=== PATIENT | male | born 1980 | race Caucasian/White ===

== ENCOUNTER → 2018-07-04 08:45 | Outpatient (RCR) | payer MEDICARE, MEDICAID, SELFPAY ==
--- NOTE | 2016-09-03 14:20 | TODAY_ITS ---
To: AVA MILTON Reason for today's visit: [facility] Plan: tommie called to check on henny's VIRGILIO as he goes to [facility]. I checked and he is active . I notified her and AVA, but will check again tomorrow Action Plan: Chronic Condition: Referred to:
--- NOTE | 2016-09-04 09:50 | TODAY_ITS ---
To: AVA MILTON Reason for today's visit: [facility] Plan: I checked portal again and henny is no longer active . he will come in Action Plan: Chronic Condition: Referred to:
--- NOTE | 2016-09-06 15:00 | TODAY_ITS ---
To: AVA MILTON Reason for today's visit: [facility] Plan: Mariana is due 09/24 and [facility] has lapsed for her, the two girls and Agustin Green. Agustin has MCR so i called [facility] and Libby worked diligently to renew Mariana and the girls fo Dr. José/dannie; they should be active in -: she also renewed Agustin but says he will have to wait for income verification. i NOTIFIED ava BY Action Plan: I will check saturday Action Plan: Chronic Condition: Referred to:
--- NOTE | 2016-09-11 10:35 | TODAY_ITS ---
To: AVA MILTON Reason for today's visit: [facility] Plan: called and john states, after checking with her safety supervisor, that Libby at [facility] was incorrect and henny will have to do a 202M. He is still part of household on the [facility] family application but not applying. The family will be listed on 202 M as not applying * I called and left [facility] with tommie to have henny call me Action Plan: Chronic Condition: Referred to:
--- NOTE | 2016-09-14 11:45 | TODAY_ITS ---
To: KARINE Reason for today's visit: [facility]/202 Plan: Agustin walked in and we completed a 202m and I faxed Action Plan: Chronic Condition: Referred to:
--- NOTE | 2016-09-20 08:50 | TODAY_ITS ---
To: KARINE Reason for today's visit: [facility] Plan: Comfort states that the faxx was recieved but not processed yet Action Plan: Chronic Condition: Referred to:
== END ==
LOC: COCO 09-03 14:20
DX: R69 Illness, unspecified (principal)

== ENCOUNTER 2018-10-26 17:58 | Emergency (ER) | payer MEDICARE, MEDICAID, SELFPAY ==
[2018-10-26 18:13] VITALS: BP 132/83; PULSE 84; RESP 16; TEMP 36.7; O2SAT 98
--- NOTE | 2018-10-26 18:22 | DI.RAD_ITS ---
SYMPTOM/DIAGNOSIS: FALL, PAIN, SWELLING LEFT ELBOW: 10/26 Three views were obtained. There is no evidence of an elbow joint effusion or hemarthrosis. No fracture seen.
--- NOTE | 2018-10-26 18:23 | W.ED.GENAD ---
Discharge Plan Disposition Patient Disposition: HOME Condition: Improving Discharge Details Chief Complaint: Orthopedic Clinical Impression: Contusion of elbow, left Primary Care Provider: Karen Mas ED Provider: Rudy Ceja Home Meds and New Rx's Prescriptions: Continued dexmethylphenidate [Focalin] 10 MG tablet 20 mg PO BID RF: 0 ibuprofen 600 MG tablet 600 mg PO QID PRN PRNQty: 30 RF: 0 Discontinued penicillin V potassium 500 MG tablet 500 mg PO TID 10 Days RF: 0 Discharge Instructions Instructions: Contusion in Adults (ED) Additional Instructions: Wear GOLD bandage as needed for comfort over 2-4 days time. Remove at night time. Continue the use of ice and may alternate with warm moist heat. Follow-up with regular doctor for recheck if not improving in 1 week's time. Medical Decision Making 38-year-old and failed and fall ice to the ground resultant left elbow pain and swelling over the course of the day today. Minimally improved with ibuprofen and ice applied at home. No other injury and denies head/neck/back/chest/abdomen pain. No numbness or tingling. Referred for x-ray to rule out underlying bony injury versus contusion. No evidence of acute fracture seen on reading by [facility]. Patient offered a sling for comfort which he declined and subsequently accepted the use of an Gold bandage. Discussed home management with him. Stable for discharge at this time. HPI General Mode of arrival: ambulatory. Date/Time Provider Initiated Documentation: 10/26/18 18:02. Limitations to Documentation: no limitations. Information obtained by: patient. History of Present Illness 38 year old M presents to the emergency department with the chief complaint of Left arm pain and swelling after fall on elbow last night, described as moderate, Quality is described as aching, and is localized to the left and upper extremity. Patient reports no radiation. Patient started experiencing this hour(s) and it has been constant. Cold therapy improves symptom(s), Movement worsens symptoms . Related Data Home Medications Medication Instructions Recorded Confirmed dexmethylphenidate [Focalin] 20 mg PO BID 05/10/16 04/07/17 ibuprofen 600 mg PO QID PRN PRN #30 tab 07/08/16 04/07/17 Previous Rx's Medication Instructions Recorded ibuprofen 600 mg PO QID PRN PRN #30 tab 07/08/16 Allergies Allergy/AdvReac Type Severity Reaction Status Date / Time venom-honey bee Allergy Anaphylaxsi Unverified 04/07/17 19:56 [bee venom (honey bee)] s codeine AdvReac Unverified 04/07/17 19:56 General Stated Complaint: Orthopedic MIRANDA: 4 Review of Systems Review of Systems 6 systems reviewed and otherwise negative [facility] Social History Smoking/Tobacco Use Status: Current every day Exam Narrative Exam Narrative: GEN: awake, alert, oriented 3. Pleasant, well groomed, interactive. HEAD: Normocephalic, atraumatic ENT: Mucous membranes moist, oropharynx unremarkable, External ear exam unremarkable EYES: PERRL, EOMI CHEST/RESP: Nontender, clear to auscultation bilateral, no wheeze/rhonchi/rales CARDIOVASCULAR: RRR, no murmur, rub laura. 2+ Rad pulse bilateral EXT: Full ROM, no edema, no rash. Tender to palpation of left elbow distally to the joint. Range of motion intact, motor 5 out of 5, no significant pain with pronation and supination Neuro: Grossly normal neurologic exam, conversant, interactive. Psych: Speech fluent, thoughts congruent, affect normal Course Vital Signs Temperature 36.7 C 10/26/18 18:13 Pulse 84 10/26/18 18:13 Respiratory Rate 16 10/26/18 18:13 Blood Pressure 132/83 10/26/18 18:13 Pulse Oximetry 98 10/26/18 18:13 Temperature 36.7 C 10/26/18 18:13 Temperature Source Temporal Artery Scan 10/26/18 18:13 Pulse 84 10/26/18 18:13 Respiratory Rate 16 10/26/18 18:13 Blood Pressure 132/83 10/26/18 18:13 Blood Pressure Position Sitting 10/26/18 18:13 Pulse Oximetry 98 10/26/18 18:13 Oxygen Delivery Method Room Air 10/26/18 18:13 Oxygen Flow Rate 0 10/26/18 18:13 Pain Level 8 10/26/18 18:13
--- NOTE | 2018-10-26 19:00 | DI.[facility]_ITS ---
EXAM: XR Left Elbow Complete, 3 or more Views EXAM DATE/TIME: 10/26/2018 6:23 PM CLINICAL HISTORY: 38 years old, male; Pain; Elbow; Left; Patient HX: Fall, pain, swelling TECHNIQUE: XR Left elbow, 3 or more views. COMPARISON: No relevant prior studies available. FINDINGS: Bones/joints: No acute fracture or subluxation. Soft tissues: Normal. IMPRESSION: No acute bony pathology. Dictated and Authenticated by: Tia Perea MD. Ordering:BALWINDER Grant MD
== END 2018-10-26 19:21 | disposition home or self-care (01) ==
PROVIDERS: Emergency Provider Emergency Medicine; PCP Nurse Practitioner Family
DX: S50.02XA Contusion of left elbow, initial encounter (principal); W00.0XXA Fall on same level due to ice and snow, initial encounter
CPT/HCPCS: 99283; 73080

== ENCOUNTER 2019-08-16 09:16 | Emergency (ER) | payer MEDICARE, MEDICAID, SELFPAY ==
[2019-08-16 09:23] VITALS: BP 91/75; PULSE 72; RESP 16; TEMP 37.1; O2SAT 96
[2019-08-16 09:31] VITALS: BP 164/58
--- NOTE | 2019-08-16 09:37 | W.ED.GENAD ---
Discharge Plan Disposition Patient Disposition: HOME Condition: Stable Discharge Details Chief Complaint: Sorethroat Clinical Impression: Acute streptococcal pharyngitis Primary Care Provider: Pasha Sweet ED Provider: Gertrudis Tuttle Home Meds and New Rx's Prescriptions: New amoxicillin 500 mg tablet 500 mg PO BID 10 Days Qty: 20 RF: 0 Continued dexmethylphenidate [Focalin] 10 MG tablet 20 mg PO BID RF: 0 ibuprofen 600 MG tablet 600 mg PO QID PRN PRNQty: 30 RF: 0 Discharge Instructions Instructions: Pharyngitis (ED) Additional Instructions: Alternate tylenol and motrin as needed and directed for pain. Take the antibiotics until finished. Drink plenty of fluids and get plenty of rest. Call your primary care doctor's office to schedule a follow-up appointment for reevaluation within the next week. Return immediately to the emergency department if you develop any worsening or new concerning symptoms. Discharge Data Discharge Date/Time-TO BE ENTERED AT DEPARTURE: 08/16/19 09:48 Discharge Physician: Gertrudis Tuttle Medical Decision Making 39-year-old male presents with sore throat for the past 2 days. Recent contact with strep. He appears nontoxic. Posterior pharyngeal erythema. No exudates, peritonsillar abscess, submandibular swelling, drooling or trismus. Lungs clear. No meningeal signs. Rapid strep positive. Patient offered Bicillin injection or oral antibiotics and he would rather p.o. meds. We will send with a prescription for amoxicillin. He is advised to follow-up with his primary care doctor for evaluation and to return here if worse. HPI General Mode of arrival: ambulatory. Date/Time Provider Initiated Documentation: 08/16/19 09:17. Limitations to Documentation: no limitations. Information obtained by: patient. HPI Narrative: Pt is a 39yo M who presents to the ED w/ a c/o sore throat and headache x 2 days. He states his daughter was recently diagnosed with strep throat. He denies fever, ear pain, cough, neck pain. Related Data Home Medications Medication Instructions Recorded Confirmed dexmethylphenidate [Focalin] 20 mg PO BID 05/10/16 08/16/19 ibuprofen 600 mg PO QID PRN PRN #30 tab 07/08/16 08/16/19 amoxicillin 500 mg PO BID 10 Days #20 tab 08/16/19 Previous Rx's Medication Instructions Recorded ibuprofen 600 mg PO QID PRN PRN #30 tab 07/08/16 amoxicillin 500 mg PO BID 10 Days #20 tab 08/16/19 Allergies Allergy/AdvReac Type Severity Reaction Status Date / Time venom-honey bee Allergy Anaphylaxsi Unverified 08/16/19 09:25 [bee venom (honey bee)] s codeine AdvReac Unverified 08/16/19 09:25 General Stated Complaint: Sorethroat MIRANDA: 4 Review of Systems Review of Systems ROS Unobtainable: All systems reviewed & are unremarkable except as noted in HPI and below Constitutional Constitutional: Reports as per HPI, Denies chills and Denies fever(s) Eyes Eyes: Denies blurry vision ENT Ears, Nose, Mouth, and Throat: Denies dizziness, Reports sore throat and Denies throat swelling Cardiovascular Cardiovascular: Denies chest pain and Denies dyspnea Respiratory Respiratory: Denies cough and Denies dyspnea Gastrointestinal Gastrointestinal: Denies abdominal pain, Denies diarrhea and Denies vomiting Genitourinary Genitourinary: Denies hematuria and Denies dysuria Musculoskeletal Musculoskeletal: Denies back pain and Denies numbness Integumentary/Breasts Skin/Breast: Denies lesions and Denies rash Neurologic Neurologic: Denies dizziness, Denies focal weakness and Denies numbness Allergic/Immunologic Allergic/Immunologic: Denies throat swelling [facility] Medical History ADD (attention deficit disorder) (Acute) Opiate addiction (Acute) Surgical History No significant past surgical history (Acute) Social History Smoking/Tobacco Use Status: Current every day Tobacco Type: cigarettes Alcohol Intake: never Substance use type: does not use Do you feel safe at home: Yes Do you feel safe in your relationship?: Yes Exam Const General: cooperative, healthy appearing and no acute distress HENMT Head: normal to inspection Ears: hearing grossly normal bilaterally and TM's normal bilaterally Mouth: oral mucosae normal Throat: uvula midline, no peritonsillar masses and posterior oropharynx abnormal erythema; no edema and no exudates Eyes General: appearance normal, both eyes and all related structures Neck Neck: normal visual inspection, no lymphadenopathy, no meningeal signs, trachea midline and supple Resp Effort & Inspection: normal respiratory effort and able to speak in complete sentences Auscultation: clear to auscultation bilaterally Cardio Rate: regular rate Rhythm: regular rhythm Skin General skin exam: no rashes or lesions noted Neuro General: alert, awake, oriented x3, moves all extremities and no meningeal signs Motor: muscle tone normal throughout Extrem General: normal to inspection and full ROM Psych Appearance: grossly normal Affect: normal affect Course Vital Signs Vital signs: Vital Signs Temperature 98.8 F 08/16/19 09:23 Pulse 72 08/16/19 09:23 Respiratory Rate 16 08/16/19 09:23 Blood Pressure 91/75 L 08/16/19 09:23 Pulse Oximetry 96 08/16/19 09:23 Temperature 98.8 F 08/16/19 09:23 Temperature Source Temporal Artery Scan 08/16/19 09:23 Pulse 72 08/16/19 09:23 Respiratory Rate 16 08/16/19 09:23 Respiratory Effort Non-Labored 08/16/19 09:23 Blood Pressure 164/58 H 08/16/19 09:31 Blood Pressure Position Supine 08/16/19 09:23 Pulse Oximetry 96 08/16/19 09:23 Oxygen Delivery Method Room Air 08/16/19 09:23 Oxygen Flow Rate 0 08/16/19 09:23 Pain Level 8 08/16/19 09:23 Lab/Test Results Lab/Test Results: POC Strep Test-[facility](Rapid) Start: 08/16/19 09:24 Freq: Status: Complete Protocol: Document 08/16/19 09:26 TB (Rec: 08/16/19 09:26 TB [id number]) Strep test-[facility](Rapid)-POC POC-Strep test-[facility] (Rapid) Positive POC Strep Test-[facility](Rapid) Start: 08/16/19 09:27 Freq: .Rapid Strep Test Status: Active Protocol: Document 08/16/19 09:27 AM (Rec: 08/16/19 09:27 AM [id number]) Strep test-[facility](Rapid)-POC POC-Strep test-[facility] (Rapid) Positive POC-Strep test-[facility] (Rapid) Positive
== END 2019-08-16 09:48 | disposition home or self-care (01) ==
PROVIDERS: Emergency Provider Physician Assistant; PCP Nurse Practitioner Family
DX: J02.0 Streptococcal pharyngitis (principal)
CPT/HCPCS: 87880; 99283

== ENCOUNTER 2019-12-19 09:39 | Emergency (ER) | payer MEDICARE, MEDICAID, SELFPAY ==
[2019-12-19 09:45] VITALS: BP 144/69; PULSE 80; TEMP 36.7; O2SAT 98
--- NOTE | 2019-12-19 09:59 | W.ED.GENAD ---
Discharge Plan Disposition Patient Disposition: HOME Condition: Good Discharge Details Chief Complaint: DentalOral Clinical Impression: Dental infection Primary Care Provider: Pasha Sweet ED Provider: Deanna Alfaro Home Meds and New Rx's Prescriptions: New penicillin V potassium 500 mg tablet 500 mg PO QID Qty: 28 RF: 0 Continued dexmethylphenidate [Focalin] 10 MG tablet 30 mg PO DAILY RF: 0 ibuprofen 600 MG tablet 600 mg PO QID PRN PRNQty: 30 RF: 0 acetaminophen [Tylenol Extra Strength] 500 mg Tablet 1,000 mg PO QID PRNRF: 0 Discharge Instructions Instructions: Dental Abscess (ED) Additional Instructions: Encourage water intake. Tylenol and/or ibuprofen as needed for discomfort. Please take the penicillin as prescribed, even if symptoms improve please take the entire course. If you develop fever/chills, increased pain, tenderness breathing, inability stay hydrated or other new/worsening symptoms please seek care urgently once again. You need definitive care with a dentist, attached is a list of local dentist for you to call. Referrals: Pasha Sweet, [employer] [Primary Care Provider] - Medical Decision Making Patient is a 39-year-old male presenting today with chief complaint of left lower dental pain. He reports the pain was initially intermittent but has been fairly consistent for the past 2 weeks progressively increasing. Patient does not have a dentist. He has had dental infections historically. He denies any fevers or chills. Has been using Orajel to help with his discomfort. No difficulty swallowing, has been hydrating well. No difficulty opening his mouth. On exam, patient appears nontoxic. He has poor dentition, tender over the buccal side of the 18 tooth. No trismus, focal area of swelling, no fluctuance. No evidence of liquids angina, epiglottitis, retropharyngeal abscess. Normal exam of the left ear. We will begin the patient on penicillin. He is given return precautions. Advised follow-up with dentist, list of local dentist was given. All questions concerns were addressed and he is in agreement this plan. HPI General Mode of arrival: ambulatory. Date/Time Provider Initiated Documentation: 12/19/19 09:59. Limitations to Documentation: no limitations. Information obtained by: patient and RN notes reviewed. History of Present Illness 39 year old M presents to the emergency department with the chief complaint of left lower dental pain, described as moderate, with intensity rated at 5. Quality is described as stabbing, and is localized to the mouth. Patient reports no radiation. Patient started experiencing this week(s) (initially intermittent, now constant x 2 weeks) and it has been constant. Medication improves symptom(s), (orajel) No exacerbating factors reported . Patient notes no other symptoms.. Patient did receive the following treatments prior to arrival, other Related Data Home Medications Medication Instructions Recorded Confirmed dexmethylphenidate [Focalin] 30 mg PO DAILY 05/10/16 12/19/19 ibuprofen 600 mg PO QID PRN PRN #30 tab 07/08/16 12/19/19 acetaminophen [Tylenol Extra 1,000 mg PO QID PRN 12/19/19 12/19/19 Strength] penicillin V potassium 500 mg PO QID #28 tab 12/19/19 Previous Rx's Medication Instructions Recorded ibuprofen 600 mg PO QID PRN PRN #30 tab 07/08/16 penicillin V potassium 500 mg PO QID #28 tab 12/19/19 Allergies Allergy/AdvReac Type Severity Reaction Status Date / Time venom-honey bee Allergy Anaphylaxsi Unverified 12/19/19 09:48 [bee venom (honey bee)] s codeine AdvReac Unverified 12/19/19 09:48 General Stated Complaint: DentalOral MIRANDA: 4 Review of Systems Constitutional Constitutional: Reports as per HPI, Denies chills, Denies fatigue, Denies fever(s), Denies headache(s) and Denies poor appetite Eyes Eyes: Denies change in vision and Denies irritation ENT Ears, Nose, Mouth, and Throat: Reports as per HPI, Reports dental pain, Denies dysphagia, Denies dizziness, Denies dry mouth, Denies ear discharge, Denies otalgia, Reports facial pain, Denies headache(s), Denies hoarseness, Denies lip swelling, Denies nasal congestion, Denies odynophagia and Denies sore throat Cardiovascular Cardiovascular: Reports as per HPI and Denies chest pain Respiratory Respiratory: Reports as per HPI and Denies cough Gastrointestinal Gastrointestinal: Reports as per HPI, Denies dysphagia, Denies nausea, Denies odynophagia and Denies vomiting Integumentary/Breasts Skin/Breast: Reports as per HPI, Denies erythema, Denies rash and Denies skin pain Neurologic Neurologic: Reports as per HPI, Denies dizziness and Denies headache(s) Endocrine Endocrine: Denies fatigue Allergic/Immunologic Allergic/Immunologic: Denies lip swelling [facility] Medical History ADD (attention deficit disorder) (Acute) Opiate addiction (Acute) Surgical History No significant past surgical history (Acute) Social History Smoking/Tobacco Use Status: Current every day Tobacco Type: cigarettes Alcohol Intake: never Drug use: Never Substance use type: does not use Do you feel safe at home: Yes Do you feel safe in your relationship?: Yes Exam Const General: cooperative, healthy appearing, comfortable, no acute distress, well developed and well groomed Nutritional Appearance: average body habitus and well nourished Orientation: alert and awake HENMT Head: normal to inspection, normocephalic and atraumatic Ears: hearing grossly normal bilaterally, external ears normal and TM's normal bilaterally General nose exam: external nose normal and nares normal Face and sinus: normal facial exam, sinuses nontender and face symmetric Mouth: lip normal, tongue normal, no drooling, normal lip, no muffled voice, no trismus and No restricted motion Teeth and gingiva: caries and poor dentition (pain along buccal side of #19 tooth, no area of fluctuance) Throat: posterior oropharynx normal, tonsils normal and uvula midline Eyes General: appearance normal, both eyes and all related structures Neck Neck: normal visual inspection, full ROM, no lymphadenopathy, supple and no anterior neck swelling Resp Effort & Inspection: normal respiratory effort, able to speak in complete sentences and no respiratory distress Auscultation: clear to auscultation bilaterally, no rales, no rhonchi and no wheezes Cardio Rate: regular rate Rhythm: regular rhythm Heart Sounds: S1 normal and S2 normal Skin General skin exam: no rashes or lesions noted Trauma: no lacerations or abrasions Neuro General: alert and awake Cognition: normal cognition Speech: speech normal Gait: normal gait Psych Appearance: grossly normal and well kempt Mental Status: mental status grossly normal Speech and Movement: speech and movement normal Course Vital Signs Vital signs: Vital Signs Temperature 36.7 C 12/19/19 09:45 Pulse 80 12/19/19 09:45 Blood Pressure 144/69 H 12/19/19 09:45 Pulse Oximetry 98 12/19/19 09:45 Temperature 36.7 C 12/19/19 09:45 Temperature Source Temporal Artery Scan 12/19/19 09:45 Pulse 80 12/19/19 09:45 Respiratory Effort Non-Labored 12/19/19 09:47 Blood Pressure 144/69 H 12/19/19 09:45 Blood Pressure Position Sitting 12/19/19 09:45 Pulse Oximetry 98 12/19/19 09:45 Oxygen Delivery Method Room Air 12/19/19 09:45 Oxygen Flow Rate 0 12/19/19 09:45 Pain Level 5 12/19/19 09:50
== END 2019-12-19 10:25 | disposition home or self-care (01) ==
PROVIDERS: Emergency Provider Physician Assistant; PCP Nurse Practitioner Family
DX: K04.7 Periapical abscess without sinus (principal)
CPT/HCPCS: 99283

== ENCOUNTER 2020-02-21 21:50 | Emergency (ER) | payer MEDICARE, MEDICAID, SELFPAY ==
[2020-02-21 21:56] VITALS: BP 146/90; PULSE 82; RESP 16; TEMP 36.8; O2SAT 97
--- NOTE | 2020-02-21 21:58 | ED.GENADUL_ITS ---
Discharge Plan Disposition Patient Disposition: HOME Condition: Stable Discharge Details Chief Complaint: DentalOral Clinical Impression: Dental infection Primary Care Provider: Pasha Sweet ED Provider: Driss Evans Home Meds and New Rx's Prescriptions: New clindamycin HCl 300 mg capsule 300 mg PO Q8H Qty: 30 RF: 0 No Action ibuprofen 600 MG tablet 1,600 mg PO QID PRN PRNRF: 0 acetaminophen [Tylenol Extra Strength] 500 mg Tablet 1,500 mg PO QID PRNRF: 0 Discharge Instructions Instructions: Dental Abscess (ED) Additional Instructions: Clindamycin as directed. Cool and/or warm compresses every 2 hours for 20 days. Qtgu-wvg-[id number] medications as directed for symptomatic control, do not take more than directed using the dental list provided, I recommend contacting dentist tomorrow to establish a dentist as soon as possible, I do not want to wait a full month as already scheduled. Please watch for new or worsening symptoms and return to the ER for any concerns Medical Decision Making 39-year-old gentleman presents for ongoing dental pain. Has been on both penicillin and amoxicillin. At this time no clear signs of abscess. Will broaden his antibiotic coverage with clindamycin, first dose to be given here. Dental block was offered here in the ER but he declines. He was educated on the proper dose of Tylenol and or Motrin to take. Will provide a dental list for the patient so he may contact them tomorrow to help expedite his outpatient care. Patient has no additional questions or concerns and is comfortable discharge. Patient appears well, nontoxic. No acute distress. Medical Records Medical records reviewed: Yes I reviewed the patient's medical records. HPI General Mode of arrival: ambulatory . Date/Time Provider Initiated Documentation: 02/21/20 21:51 . Limitations to Documentation: no limitations . Information obtained by: patient . HPI Narrative: 39-year-old gentleman who reports roughly 2-month history of dental pain, seen at our hospital placed on penicillin, reports on his last day of amoxicillin from another ER, symptoms are not improving. He is not scheduled to see a dentist for another month. He reports that he smokes cigarettes daily. He denies any fever, difficulty swallowing, facial swelling. Reports taking [id number] Tylenol and Motrin [id number]. The last dose he took was 1600 mg of ibuprofen and 1500 mg of Tylenol however he does not typically take that high of a dose. He has no additional concerns or complaints at this time. Related Data Home Medications Medication Instructions Recorded Confirmed acetaminophen [Tylenol Extra 1,500 mg PO QID PRN 12/19/19 02/21/20 Strength] clindamycin HCl 300 mg PO Q8H #30 cap 02/21/20 ibuprofen 1,600 mg PO QID PRN PRN 02/21/20 02/21/20 Previous Rx's Medication Instructions Recorded clindamycin HCl 300 mg PO Q8H #30 cap 02/21/20 Allergies Allergy/AdvReac Type Severity Reaction Status Date / Time venom-honey bee Allergy Anaphylaxsi Unverified 02/21/20 22:02 [bee venom (honey bee)] s codeine AdvReac Unverified 02/21/20 22:02 General MIRANDA: 4 Review of Systems Constitutional Constitutional: Denies fever(s) Eyes Eyes: Denies eye discharge ENT Ears, Nose, Mouth, and Throat: Denies sore throat Cardiovascular Cardiovascular: Denies chest pain and Denies dyspnea Respiratory Respiratory: Denies cough and Denies dyspnea Integumentary/Breasts Skin/Breast: Denies rash [facility] Medical History ADD (attention deficit disorder) (Acute) Opiate addiction (Acute) Surgical History No significant past surgical history (Acute) Social History Smoking/Tobacco Use Status: Current every day Tobacco Type: cigarettes Alcohol Intake: never Drug use: Never Substance use type: does not use Do you feel safe at home: Yes Do you feel safe in your relationship?: Yes Exam Const General: cooperative, healthy appearing, comfortable and no acute distress Orientation: alert, awake and oriented x3 HENMT Head: normal to inspection, normocephalic and atraumatic Ears: external ears normal, TM's normal bilaterally and EAC's normal General nose exam: external nose normal Face and sinus: normal facial exam Mouth: moist mucous membranes Teeth and gingiva: poor dentition (The patient has no superior teeth. Tooth #19 cracked, tender. ) and other (No pointing abscess or facial swelling) Throat: posterior oropharynx normal Eyes Conjunctivae: conjunctivae normal Neck Neck: normal visual inspection, full ROM, no lymphadenopathy, no meningeal signs, trachea midline and supple Resp Effort & Inspection: normal respiratory effort and able to speak in complete sentences Auscultation: clear to auscultation bilaterally Cardio Rate: regular rate Rhythm: regular rhythm Skin General skin exam: no rashes or lesions noted Neuro General: patient alert, patient awake, moves all extremities and no focal motor deficits Sensory Exam: no sensory deficits noted Psych Appearance: grossly normal Mental Status: mental status grossly normal
[2020-02-21 22:15] VITALS: BP 146/90; PULSE 82; RESP 16; O2SAT 97
[2020-02-21] MEDS: Clindamycin 300 MG CAP PO (22:18)
== END 2020-02-21 22:20 | disposition home or self-care (01) ==
PROVIDERS: Emergency Provider Physician Assistant; PCP Nurse Practitioner Family
DX: R68.84 Jaw pain (principal); K04.7 Periapical abscess without sinus
CPT/HCPCS: 99283

== ENCOUNTER 2020-02-23 00:35 | Emergency (ER) | payer MEDICARE, MEDICAID, SELFPAY ==
[2020-02-23 00:38] VITALS: BP 162/90; PULSE 80; RESP 18; TEMP 37; O2SAT 94
--- NOTE | 2020-02-23 00:48 | ED.GENADUL_ITS ---
Discharge Plan Disposition Patient Disposition: HOME Condition: Stable Discharge Details Chief Complaint: Allergic Clinical Impression: Odontalgia, Allergic drug reaction Primary Care Provider: Pasha Sweet ED Provider: Rudy Ceja Home Meds and New Rx's Prescriptions: New penicillin V potassium 500 mg tablet 500 mg PO QID 10 Days Qty: 40 RF: 0 prednisone 20 mg tablet 40 mg PO DAILY 5 Days Qty: 10 RF: 0 Continued ibuprofen 600 MG tablet 1,600 mg PO QID PRN PRNRF: 0 acetaminophen [Tylenol Extra Strength] 500 mg Tablet 1,500 mg PO QID PRNRF: 0 Discontinued clindamycin HCl 300 mg capsule 300 mg PO Q8H Qty: 30 RF: 0 Discharge Instructions Instructions: Toothache (ED) Additional Instructions: Follow-up with dentistry as you have planned. Call in the morning for an appoi ntment time. May continue Tylenol and/or ibuprofen as needed for pain. May use the provided tramadol as needed for breakthrough pain. I would consider that she have mild allergy to clindamycin and should no longer take it. Please begin penicillin as prescribed. Return to the emergency department for any acute concerns. Discharge Data Discharge Date/Time-TO BE ENTERED AT DEPARTURE: 02/23/20 01:09 Medical Decision Making 39-year-old male presents from home. He has had ongoing difficulty with dental caries and dental infections. He was seen in the emergency department started on clindamycin yesterday. Is now developed a rash. No difficulty with swallowing or drooling. He has plans for outpatient follow. He had taken Benadryl at home. Will add a brief burst of prednisone. He will continue antihistamines and follow-up with dentistry as planned. We will switch him from clindamycin to penicillin. HPI General Mode of arrival: ambulatory . Date/Time Provider Initiated Documentation: 02/23/20 00:39 . Limitations to Documentation: no limitations . Information obtained by: patient . History of Present Illness 39 year old M presents to the emergency department with the chief complaint of Rash after taking clindamycin, described as mild, Quality is described as constant, and is localized to the chest and back. Patient reports no radiation. Patient started experiencing this hour(s) and it has been constant. No relieving factors improve symptom(s), No exacerbating factors reported . Patient notes denies chest pain, fever/chills and shortness of breath. Patient did receive the following treatments prior to arrival, NSAID Related Data Home Medications Medication Instructions Recorded Confirmed acetaminophen [Tylenol Extra 1,500 mg PO QID PRN 12/19/19 02/23/20 Strength] ibuprofen 1,600 mg PO QID PRN PRN 02/21/20 02/23/20 penicillin V potassium 500 mg PO QID 10 Days #40 tab 02/23/20 prednisone 40 mg PO DAILY 5 Days #10 tab 02/23/20 Previous Rx's Medication Instructions Recorded penicillin V potassium 500 mg PO QID 10 Days #40 tab 02/23/20 prednisone 40 mg PO DAILY 5 Days #10 tab 02/23/20 Allergies Allergy/AdvReac Type Severity Reaction Status Date / Time venom-honey bee Allergy Anaphylaxsi Unverified 02/23/20 00:39 [bee venom (honey bee)] s codeine AdvReac Unverified 02/23/20 00:39 General Stated Complaint: Allergic MIRANDA: 3 Review of Systems Narrative: No change to voice or swallowing, no shortness of breath, no drooling. 4 systems reviewed and otherwise negative [facility] Medical History ADD (attention deficit disorder) (Acute) Opiate addiction (Acute) Social History Smoking/Tobacco Use Status: Current every day Tobacco Type: cigarettes Alcohol Intake: never Drug use: Never Substance use type: does not use Do you feel safe at home: Yes Do you feel safe in your relationship?: Yes Exam Narrative Exam Narrative: GEN: awake, alert, oriented 3. Pleasant, well groomed, interactive. HEAD: Normocephalic, atraumatic ENT: Mucous membranes moist, oropharynx with upper plate that is edentulous, numerous dental caries and partial teeth present lower, no fluctuance orasymmetry present, External ear exam unremarkable EYES: PERRL, EOMI NECK: Full ROM, no BURAK, no menigismus CHEST/RESP: Nontender, clear to auscultation bilateral, no wheeze/rhonchi/rales. Rash on upper back and chest that is erythematous, raised, blanches to touch. CARDIOVASCULAR: RRR, no murmur, rub laura. 2+ Rad pulse bilateral EXT: Full ROM, no edema, no rash Neuro: Grossly normal neurologic exam, conversant, interactive. Psych: Speech fluent, thoughts congruent, affect normal Course Vital Signs Vital signs: Vital Signs Temperature 37 C 02/23/20 00:38 Pulse 80 02/23/20 00:38 Respiratory Rate 18 02/23/20 00:38 Blood Pressure 162/90 H 02/23/20 00:38 Pulse Oximetry 94 L 02/23/20 00:38 Temperature 37 C 02/23/20 00:38 Pulse 80 02/23/20 00:38 Respiratory Rate 18 02/23/20 00:38 Respiratory Effort Non-Labored 02/23/20 00:39 Respiratory Pattern Normal 02/23/20 00:39 Blood Pressure 162/90 H 02/23/20 00:38 Blood Pressure Position Sitting 02/23/20 00:38 Pulse Oximetry 94 L 02/23/20 00:38 Oxygen Delivery Method Room Air 02/23/20 00:38 Oxygen Flow Rate 0 02/23/20 00:38 Pain Level 8 02/23/20 00:38
[2020-02-23] MEDS: Loratidine 10 MG TAB PO (01:03)
[2020-02-23] MEDS: predniSONE 40 MG, predniSONE 10 MG 50 MG PO (01:03)
[2020-02-23] MEDS: Penicillin V POTASSIUM 500 MG TAB, 4 TABS/BTL PO (01:03)
[2020-02-23 06:40] VITALS: BP 162/90; PULSE 80; RESP 18; TEMP 37; O2SAT 94
== END 2020-02-23 01:09 | disposition home or self-care (01) ==
PROVIDERS: Emergency Provider Emergency Medicine; PCP Nurse Practitioner Family
DX: L27.0 Generalized skin eruption due to drugs and medicaments taken internally (principal); T36.8X5A Adverse effect of other systemic antibiotics, initial encounter
CPT/HCPCS: 99283; J7512

== ENCOUNTER 2020-03-20 18:17 | Emergency (ER) | payer MEDICARE, MEDICAID, SELFPAY ==
[2020-03-20 18:21] VITALS: BP 156/85; PULSE 86; RESP 16; TEMP 36.6; O2SAT 98
--- NOTE | 2020-03-20 19:14 | W.ED.GENAD ---
Discharge Plan Disposition Patient Disposition: HOME Condition: Stable Discharge Details Chief Complaint: DentalOral Clinical Impression: Pain, dental Primary Care Provider: Pasha Sweet ED Provider: Renu Salvador Home Meds and New Rx's Prescriptions: New penicillin V potassium 500 mg tablet 500 mg PO QID Qty: 28 RF: 0 Continued ibuprofen 600 MG tablet 1,600 mg PO QID PRN PRNRF: 0 acetaminophen [Tylenol Extra Strength] 500 mg Tablet 1,500 mg PO QID PRNRF: 0 penicillin V potassium 500 mg Tablet 500 mg PO RF: 0 Discharge Instructions Instructions: Toothache (ED) Additional Instructions: Ice to the cheek. Warm salt water rinses after eating or drinking. Keep the head of your bed elevated at night when trying to sleep this will help decrease throbbing pain. You received oxycodone 5 mg in the emergency room. You may re-dose oxycodone in 4 to 6 hours for pain if needed. Consider splitting your methadone dose into quarters and take every 6 hours over the course of the day for better pain relief. Called [facility] clinic regarding a recommendation to split your methadone dose. You decline CT scan today. You are placed on the critical care educator list for follow-up with dentist, they can help assist with more prompt follow-up. Return if you are not having any worsening pain, fevers, chills, difficulty opening or closing your jaw or for worsening symptoms as discussed sooner if needed. Medical Decision Making 39-year-old patient presents for 1 month of dental pain has been seen in the emergency room multiple times this is his third visit. Patient previously treated with clindamycin, had allergic reaction. Changed to penicillin, has been compliant has 4 tablets left. Patient returns to the emergency room today due to persistence of pain. Patient denies associated fevers or chills. Is nonseptic appearing. Vital signs reviewed and are stable. Mild hypertension noted. Afebrile. On exam patient does have receded gums as well as widespread lower dental caries without obvious fluctuance or abscess present at this time. Patient has no focal facial swelling or cellulitis. Patient has no trismus. Speaking in full sentences, able to manage secretions. Patient denies any systemic infectious symptoms. Patient does report taste a foul odor persistently in his mouth. I did recommend CT scan to rule out myelitis as source of possible infection despite patient's lack of systemic symptoms however patient has completed multiple courses of antibiotics without relief of his pain. Patient declined CT. He would rather follow-up with dentist. Patient is unable to get into his dentist. Will place patient on critical care educator list to try to expedite follow-up. Patient has had made several phone calls as well as his mother has made several phone calls on his behalf. Patient offered a local block, patient declines. Patient reports he is quite fearful of needles. Patient will consent to oral medications for pain. Will give patient a single dose of oxycodone at this time and additional tablet of oxycodone for overnight pain at his request. Patient is currently taking methadone. Patient is on methadone for chronic pain due to cervical fractures. We did discuss splitting his methadone dose for better overall pain relief as Motrin and Tylenol have been ineffective. Patient reports his understanding and will follow-up with methadone clinic and plan a split dose for better relief of pain. We will continue patient's antibiotic. Conservative treatments discussed. I see no active sign of abscess however given persistence of pain will prolong his penicillin course. Signs and symptoms of infection discussed for which patient should have immediate return. Patient reports his understanding. Patient feels comfortable plan of care and discharge home at this time. The patient was stable and requested discharge. Prior to discharge, my usual and customary return precautions were reviewed with the patient - this included follow-up instructions and reasons to return to the Emergency Department if conditions worsens, does not improve as expected, or other new concerns arise. HPI General Date/Time Provider Initiated Documentation: 03/20/20 18:19. HPI Narrative: This is a 39-year-old patient presenting to the emergency room complaints of dental pain. Patient reports 1 month of dental pain. He does report he took a course of clindamycin had an allergic reaction, medication was discontinued. Then he took a course of penicillin. Patient reports taste of foul odor in his mouth intermittently. Patient reports along the gumline noted areas of swelling which he ruptures, purulence is drained and facial swelling improves. Patient reports multiple episodes of this over the last month. Patient reports left lower jaw pain. Difficulty sleeping at night. Patient denies any fevers or chills. Patient denies any difficulty opening or closing jaw. Patient reports taking Motrin and Tylenol [id number] without relief. Patient currently is taking methadone. Patient denies headache or dizziness. Denies any sweats. No other concerns or complaints at this time. Patient is still currently on penicillin has 4 tablets left. Has been trying to get into a dentist but has been unsuccessful due to Covid. Concerned regarding persistence of pain. Denies headache, dizziness, nausea, vomiting. Denies abdominal pain, bowel changes. Denies any ear pain. Denies voice change or trismus. No swallowing difficulty. Related Data Home Medications Medication Instructions Recorded Confirmed acetaminophen [Tylenol Extra 1,500 mg PO QID PRN 12/19/19 03/20/20 Strength] ibuprofen 1,600 mg PO QID PRN PRN 02/21/20 03/20/20 penicillin V potassium 500 mg PO 03/20/20 penicillin V potassium 500 mg PO QID #28 tab 03/20/20 Previous Rx's Medication Instructions Recorded penicillin V potassium 500 mg PO QID #28 tab 03/20/20 Allergies Allergy/AdvReac Type Severity Reaction Status Date / Time clindamycin Allergy Unverified 03/20/20 18:24 venom-honey bee Allergy Anaphylaxsi Unverified 03/20/20 18:24 [bee venom (honey bee)] s codeine AdvReac Unverified 03/20/20 18:24 General Stated Complaint: DentalOral MIRANDA: 4 Review of Systems All systems reviewed & are unremarkable except as noted in HPI and below PFSH Medical History ADD (attention deficit disorder) (Acute) Opiate addiction (Acute) Social History Smoking/Tobacco Use Status: Current every day Tobacco Type: cigarettes Alcohol Intake: never Drug use: Never Substance use type: does not use Do you feel safe at home: Yes Do you feel safe in your relationship?: Yes Exam Narrative Exam Narrative: CONST: Healthy appearing patient, in no acute distress. Well hydrated. Alert and oriented. HENMT: Head nomocephalic, normal to inspection. Atraumatic. Hearing grossly normal. TMs appear normal bilaterally. No pharyngeal erythema. Moist mucous membranes. Patient has no upper teeth present. Patient has widespread dental caries noted of the lower teeth. Significantly reseeded gums on the left side. No obvious dental abscess at this time. No focal gum swelling present. No obvious facial swelling present at this time. Mild left jaw pain with palpation. Scattered cervical lymphadenopathy present. No facial cellulitis. EYES: General normal appearance. Alignment normal. Eyelids normal. Conjunctiva normal. NECK: Normal visual inspection. FROM. Trachea midline. No Midline tenderness. CHEST: Normal insepection of the chest. RESP: Normal respiratory effort. Speaking full sentences. No cough. No audible wheezing. No retractions. CARDIO: No JVD. MUSCULOSKELETAL: Normal Gait. FROM of all extremities. SKIN: Normal. Dry. No rashes. NEURO: Alert and awake. Speech clear. PSYCH: Normal affect. Cooperative. Course Vital Signs Vital signs: Vital Signs Temperature 36.6 C 03/20/20 18:21 Pulse 86 03/20/20 18:21 Respiratory Rate 16 03/20/20 18:21 Blood Pressure 156/85 H 03/20/20 18:21 Pulse Oximetry 98 03/20/20 18:21 Temperature 36.6 C 03/20/20 18:21 Temperature Source Tympanic 03/20/20 18:21 Pulse 86 03/20/20 18:21 Respiratory Rate 16 03/20/20 18:21 Respiratory Effort Non-Labored 03/20/20 18:23 Blood Pressure 156/85 H 03/20/20 18:21 Blood Pressure Position Sitting 03/20/20 18:21 Pulse Oximetry 98 03/20/20 18:21 Oxygen Delivery Method Room Air 03/20/20 18:21 Oxygen Flow Rate 0 03/20/20 18:21 Pain Level 10 03/20/20 18:24
[2020-03-20] MEDS: oxyCODONE 5 MG TAB PO (19:29)
[2020-03-20] MEDS: oxyCODONE 10 MG TAB 5 MG PO (19:29)
== END 2020-03-20 19:30 | disposition home or self-care (01) ==
PROVIDERS: Emergency Provider Physician Assistant; PCP Nurse Practitioner Family
DX: R68.84 Jaw pain (principal); K08.89 Other specified disorders of teeth and supporting structures; F11.21 Opioid dependence, in remission
CPT/HCPCS: 99283

== ENCOUNTER 2020-09-23 09:20 | Emergency (ER) | payer MEDICARE, MEDICAID, SELFPAY ==
[2020-09-23 09:26] VITALS: BP 163/78; PULSE 74; RESP 18; TEMP 36.2; O2SAT 100
--- NOTE | 2020-09-23 09:42 | ED.GENADUL_ITS ---
Discharge Plan Disposition Patient Disposition: HOME Condition: Improving Discharge Details Clinical Impression: Abdominal pain Primary Care Provider: Pasha Sweet ED Provider: Rudy Ceja Home Meds and New Rx's Prescriptions: Continued ibuprofen 600 MG tablet 1,600 mg PO QID PRN PRNRF: 0 methadone 10 mg/5 mL Solution 85 mg PO DAILY RF: 0 acetaminophen [Tylenol Extra Strength] 500 mg Tablet 1,500 mg PO QID PRNRF: 0 Discharge Instructions Instructions: Abdominal Pain (ED) Additional Instructions: As we discussed, please return if you develop a fever, abdominal bloating, recurrent abdominal pain or vomiting, or any other acute concerns. Resume normal routine and activities. As we discussed, you may benefit from a trial of avoiding milk products. Return for any acute concerns. Routine care with your regular doctor. Medical Decision Making 40-year-old male presents from home complaining of onset this morning of crampy left lower quadrant abdominal pain. Addition to radiate to his back at times. He had 3 episodes of loose stools and a normal urination. He states the pain then dissipated and he now feels normal. No bloating, no vomiting, no fever. No recent travel or known sick contacts. Discussed with him that my differential diagnosis would include renal colic, gaseous distention of colon, developing diverticulitis. He declined any further intervention or evaluation. We discussed returning for persistent or recurrent pain, development of fever, or any other acute concerns. I do feel he is stable for discharge to home at this time. HPI General Mode of arrival: ambulatory . Date/Time Provider Initiated Documentation: 09/23/20 09:21 . Limitations to Documentation: no limitations . Information obtained by: patient . History of Present Illness 40 year old M presents to the emergency department with the chief complaint of Left lower quadrant pain and loose stool x3, described as moderate, Quality is described as other (Crampy), and is localized to the abdomen and left. Patient reports no radiation. Patient started experiencing this hour(s) and it has been now resolved. No relieving factors improve symptom(s), No exacerbating factors reported . Patient notes other (No bloody stool); denies fever/chills, loss of appetite and nausea/vomiting. Patient did receive the following treatments prior to arrival, none Related Data Home Medications Medication Instructions Recorded Confirmed acetaminophen [Tylenol Extra 1,500 mg PO QID PRN 12/19/19 09/23/20 Strength] ibuprofen 1,600 mg PO QID PRN PRN 02/21/20 09/23/20 methadone 85 mg PO DAILY 09/23/20 09/23/20 Allergies Allergy/AdvReac Type Severity Reaction Status Date / Time clindamycin Allergy Unverified 09/23/20 09:29 venom-honey bee Allergy Anaphylaxsi Unverified 09/23/20 09:29 [bee venom (honey bee)] s codeine AdvReac Unverified 09/23/20 09:29 General Stated Complaint: Abd Prob MIRANDA: 3 Review of Systems Narrative: History of kidney stones. No bloody urine, no bloody stool. See HPI. 8 systems reviewed and otherwise negative [facility] Medical History (Updated 09/23/20 @ 09:45 by Rudy Ceja MD) ADD (attention deficit disorder) Opiate addiction Surgical History No significant past surgical history Social History Smoking/Tobacco Use Status: Current every day Tobacco Type: cigarettes Smoking risk assessment performed?: Yes Alcohol Intake: never Drug use: Never Substance use type: former substance user Do you feel safe at home: Yes Do you feel safe in your relationship?: Yes Exam Narrative Exam Narrative: GEN: awake, alert, oriented 3. Pleasant, well groomed, interactive. HEAD: Normocephalic, atraumatic ENT: Mucous membranes moist, External ear exam unremarkable EYES: PERRL, EOMI NECK: Full ROM, no BURAK, no menigismus CHEST/RESP: Nontender, clear to auscultation bilateral, no wheeze/rhonchi/rales CARDIOVASCULAR: RRR, no murmur, rub laura. 2+ Rad pulse bilateral ABDOMEN: Soft, nontender, no mass. +Bowel sounds EXT: Full ROM, no edema, no rash Neuro: Grossly normal neurologic exam, conversant, interactive. Psych: Speech fluent, thoughts congruent, affect normal Course Vital Signs Vital signs: Vital Signs Temperature 36.2 C L 09/23/20 09:26 Pulse 74 09/23/20 09:26 Respiratory Rate 18 09/23/20 09:26 Blood Pressure 163/78 H 09/23/20 09:26 Pulse Oximetry 100 09/23/20 09:26 Temperature 36.2 C L 09/23/20 09:26 Temperature Source Temporal Artery Scan 09/23/20 09:26 Pulse 74 09/23/20 09:26 Respiratory Rate 18 09/23/20 09:26 Respiratory Effort Non-Labored 09/23/20 09:32 Blood Pressure 163/78 H 09/23/20 09:26 Pulse Oximetry 100 09/23/20 09:26 Oxygen Delivery Method Room Air 09/23/20 09:26 Oxygen Flow Rate 0 09/23/20 09:26 Pain Level 0 09/23/20 09:26
== END 2020-09-23 09:49 | disposition home or self-care (01) ==
PROVIDERS: Emergency Provider Emergency Medicine; PCP Nurse Practitioner Family
DX: R10.32 Left lower quadrant pain (principal); R19.7 Diarrhea, unspecified; Z87.442 Personal history of urinary calculi
CPT/HCPCS: 99282; 99283

== ENCOUNTER 2021-08-19 07:42 | Emergency (ER) | payer MEDICARE, MEDICAID, SELFPAY ==
[2021-08-19] VITALS (22 sets, daily range): BP systolic 126–153; BP diastolic 72–92; PULSE 59–74; RESP 16; TEMP 36.3; O2SAT 95–100
--- NOTE | 2021-08-19 07:45 | DI.CT_ITS ---
Exam(s) CT RENAL COLIC WO EXAM: CT RENAL COLIC WO CLINICAL HISTORY: L flank pain, r/o kidney stone. TECHNIQUE: Imaging Protocol: Axial computed tomography images with coronal and sagittal reformatted images were created and reviewed. COMPARISON: No exams were available for comparison FINDINGS: ABDOMEN: Lung Bases: There is reticular nodular infiltrate in the lateral aspect of the right lower lobe. Liver: Normal density. No measurable mass. Gallbladder and biliary tract: No radiodense calculus or biliary ductal dilation. Pancreas: Normal density, no abnormal calcifications or inflammatory process. Spleen: Normal. Kidneys: Normal size, contour and axis.There is left nephrolithiasis. There is a 3 mm stone at the l eft UVJ causing [id number] hydronephrosis. No masses seen. Adrenal glands: No mass is seen. Lymph nodes: Within normal limits. Abdominal Aorta: Abdominal portion non-dilated. PELVIS: Bladder:The bladder is incompletely distended. No gross abnormalities identified. Bowel: No obstruction or bowel wall thickening. Appendix is unremarkable. Peritoneal cavity: No ascites, collection or mesenteric inflammatory response. No free air. Reproductive organs: Within normal limits. Bones: Within normal limits. Soft Tissues: Within normal limits. IMPRESSION: 1. 3 mm stone at the left UVJ causing [id number] left hydronephrosis. 2. Left nephrolithiasis. 3. Right lower lobe infiltrate suspicious for pneumonia. Please correlate clinically. Incidental Findings RADIATION DOSE DELIVERED: 764.23mGy.cm Total DLP DATA REPOSITORY: All CT scans at this facility are submitted to the National Radiology Data Registry (NRDR) Dose Index Registry (DIR) with the [employer] ([employer]). RADIATION OPTIMIZATION: All CT scans at this facility use at least one of these dose optimization te chniques: automated exposure control; mA and/or kV adjustment per patient size (includes targeted exa ms where dose is matched to clinical indication); or iterative reconstruction.
--- NOTE | 2021-08-19 08:03 | ED.GENADUL_ITS ---
Discharge Plan Disposition Patient Disposition: HOME Condition: Improving Discharge Details Clinical Impression: Ureterolithiasis, Pneumonia Primary Care Provider: None,None ED Provider: Gertrudis Tuttle Home Meds and New Rx's Prescriptions: New amoxicillin-pot clavulanate [Augmentin] 875-125 mg tablet 1 tab PO BID 7 Days Qty: 14 RF: 0 tamsulosin [Flomax] 0.4 mg capsule 0.4 mg PO DAILY Qty: 10 RF: 0 Continued ibuprofen 600 MG tablet 1,600 mg PO QID PRN PRNRF: 0 methadone 10 mg/5 mL Solution 100 mg PO DAILY RF: 0 acetaminophen [Tylenol Extra Strength] 500 mg Tablet 1,500 mg PO QID PRNRF: 0 Discharge Instructions Instructions: Pneumonia (ED), Ureteral Stones (ED) Additional Instructions: Your CAT scan today noted that you have a kidney stone near your bladder. This may pass at any time but could take even up to a month. It is important to drink plenty of fluids to help you pass the stone. Use a strainer to determine that you have passed the stone. Alternate tylenol and motrin as needed and directed for pain. Your CAT scan also noted evidence of a possible pneumonia in the right side of your lung. You were tested for Covid today. You will be contacted regarding the results when available. A prescription for antibiotics has also been sent electronically to your pharmacy if you develop worsening cough or shortness of breath. A prescription for Flomax has also been sent electronically to your pharmacy to take as directed until follow-up with urology. You were given a dose of your methadone to take as directed tomorrow morning. Follow-up with the [facility] clinic on Saturday. Call the urology office on Saturday to schedule a follow-up appointment for reevaluation. Return immediately to the emergency department if you develop any worsening or new concerning symptoms. Referrals: Matt Díaz MD [ [facility] STAFF PHYSICIAN] - Discharge Data Discharge Date/Time-TO BE ENTERED AT DEPARTURE: 08/19/21 10:12 Discharge Physician: Gertrudis Tuttle Medical Decision Making 41-year-old male with a history of opiate use in remission on methadone, kidney stones who presents with left flank and left lower quadrant abdominal pain with difficulty urinating and vomiting this morning. Blood pressure hypertensive, remainder vitals within normal limits. Patient appears uncomfortable and consistent with likely history of kidney stone. Will place an IV, screening labs, urinalysis, CT renal colic and give Toradol, Phenergan and reassess. Labs and imaging reviewed. White blood cell count normal at 9. Normal electrolytes. Urinalysis notes large blood but no evidence of infection. CT renal colic notes: IMPRESSION: 1. Left-sided nephrolithiasis with a 2 mm stone at the left UVJ producing partial obstruction. 2. Infiltrate in the right lung base of concern for potential pneumonia. Patient reassessed and he is now pain-free after Toradol. Patient states he has a chronic cough but denies any new fever, chest pain or shortness of breath. His vitals are within normal limits. He states he is fully vaccinated for Covid and denies any known exposure to COVID-19. His presentation may not be consistent with an acute pneumonia as he has no acute respiratory symptoms. CT findings reviewed with Dr. Díaz who recommends Flomax, pain control and can follow-up with urology outpatient. Patient feels comfortable going home. We called the [facility] clinic and confirmed that patient missed his methadone dosing this morning and that they will be closed this morning by the time patient is discharged. They confirm that patient is taking 100 mg of methadone daily. He was given 100mg methadone PO here prior to discharge. He usually gets 1 dose to go for home but we are unable to provide this for home so he was advised to return to the ER tomorrow for this dosing if needed. A send out Covid swab was obtained here. A prescription for Augmentin was sent electronically to your pharmacy if his respiratory status changes. A prescription was also sent for Flomax was also sent electronically to his pharmacy. Patient was placed on urology follow-up list. Usual and customary return precautions given prior to discharge. Medical Records Medical records reviewed: Yes I reviewed the patient's medical records. Imaging Data Radiologic Study: Radiologist's impression: CT Abdomen And Pelvis Without Contrast Exam date and time: 08/19/2021 8:02 AM Age: 41 years old Clinical indication: Other: L flank pain, R/O kidney stone TECHNIQUE: Imaging protocol: Computed tomography of the abdomen and pelvis without contrast. COMPARISON: No relevant prior studies available. FINDINGS: Lungs: Lung bases show patchy abnormal opacity on the right of concern for potential pneumonia. Left lung base is clear. Liver: Normal. No mass or intrahepatic biliary ductal dilatation. Gallbladder and bile ducts: Normal. No calcified stones. No ductal dilation. Pancreas: Normal. No mass or ductal dilation. Spleen: Normal. No splenomegaly. Adrenal glands: Normal. No mass. Kidneys and ureters: There is a tiny calcification in the lower pole of the left kidney. No stones are seen on the right. There is mild left-sided hydronephrosis with perinephric stranding. The left ureter is dilated to the UVJ where there is a tiny 2 mm stone on the verge of passage into the bladder. Stomach and bowel: Unremarkable. No significant dilatation or obstruction. No mucosal thickening or visible mass. Appendix: No evidence of appendicitis. Intraperitoneal space: Unremarkable. No free air. No significant fluid collection. Vasculature: Unremarkable. No abdominal aortic aneurysm or significant atherosclerosis. Lymph nodes: No enlarged retroperitoneal or mesenteric lymph nodes. Urinary bladder: See Kidneys and ureters finding. Reproductive: Unremarkable as visualized. Bones/joints: Unremarkable. No acute fracture. No lytic lesion. Soft tissues: Unremarkable. IMPRESSION: 1. Left-sided nephrolithiasis with a 2 mm stone at the left UVJ producing partial obstruction. 2. Infiltrate in the right lung base of concern for potential pneumonia. Lab Data Lab results reviewed: Yes I reviewed the patient's lab results. Labs: 08/19/21 08:11 Urine - Reflex from Ua Urine Culture - Pending Laboratory Tests Range/Units 08/19/21 08/19/21 08/19/21 07:55 07:55 08:11 WBC (4.4-10.8) 10^3/uL 9.50 RBC (4.36-5.78) 10^6/uL 5.02 Hgb (13.5-17.5) g/dL 14.5 Hct (40.0-50.0) % 44.5 MCV (80-95) fL 88.6 MCH (27.0-33.0) pg 28.9 MCHC (32.0-36.0) % 32.6 RDW (11.8-14.1) % 11.9 Plt Count (130-400) 10^3/uL 224 MPV (8.0-11.0) fL 10.0 Immature Gran % 0.4 Neutrophils % 74.4 Lymphocytes % 17.9 Monocytes % 6.1 Eosinophils % 0.7 Basophils % 0.5 Nucleated RBC % % 0 Absolute Neutrophils (1.2-6.7) 10^3/uL 7.06 H Absolute Lymphocytes (1.2-3.4) 10^3/uL 1.70 Absolute Monocytes (0.1-0.8) 10^3/uL 0.58 Absolute Eosinophils (0.0-0.7) 10^3/uL 0.07 Absolute Basophils (0.0-0.2) 10^3/uL 0.05 Sodium (136-145) mmol/L 140 Potassium (3.5-5.1) mmol/L 3.6 Chloride (98-107) mmol/L 101 Carbon Dioxide (21.0-32.0) mmol/L 30.8 Anion Gap (3-11) mmol/L 8.2 BUN (7-18) mg/dL 13 Creatinine (0.70-1.30) mg/dL 1.1 Estimated GFR/1.73 m2 (mL/min/1.73m2) >= 60.00 Glucose (74-106) mg/dL 140 H Calcium (8.5-10.1) mg/dL 9.1 Total Bilirubin (0.2-1.0) mg/dL 0.4 AST (15-37) U/L 21 ALT (16-63) U/L 25 Alkaline Phosphatase (46-116) U/L 105 Total Protein (6.4-8.2) g/dL 7.9 Albumin (3.4-5.0) g/dL 3.9 Urine Color (Yellow) Yellow Urine Clarity (Clear) Clear Urine pH (5-8) 5.0 Ur Specific [place] (1.005-1.025) >= 1.030 H Urine Protein (Negative) mg/dL Negative Urine Ketones (Negative) mg/dL Negative Urine Blood (Negative) Trace-intact H Urine Nitrite (Negative) Negative Urine Bilirubin (Negative) Negative Urine Urobilinogen (Up TO 0.2) EU/dL 0.2 Ur Leukocyte Esterase (Negative) Negative Urine RBC (0-2) HPF 10-20 H Urine WBC (0-5) HPF 0-2 Ur Epithelial Cells (Negative) HPF Rare Urine Crystals (Negative) HPF Negative Urine Bacteria (Negative) HPF Many Urine Casts (Negative) LPF Negative Urine Mucus (Negative) Moderate Ur Culture Indicated? Yes Urine Glucose (Negative) mg/dL Negative HPI General Mode of arrival: ambulatory . Date/Time Provider Initiated Documentation: 08/19/21 07:59 . Limitations to Documentation: no limitations . Information obtained by: patient . HPI Narrative: Patient is a 41-year-old male with a history of former opiate use in remission on methadone, history of kidney stones who presents with left flank and left lower quadrant abdominal pain for the past 4 hours. Patient has been having difficulty urinating since onset of pain but states he did last urinated 3 hours ago. He did vomit once which was bilious. He states his pain does feel similar to previous kidney stones. He denies any known fever, hematuria, dysuria. He has not taken any medication for pain. He has not yet taken his methadone this morning. Related Data Home Medications Medication Instructions Recorded Confirmed acetaminophen [Tylenol Extra 1,500 mg PO QID PRN 12/19/19 08/19/21 Strength] ibuprofen 1,600 mg PO QID PRN PRN 02/21/20 08/19/21 methadone 100 mg PO DAILY 09/23/20 08/19/21 amoxicillin-pot clavulanate 1 tab PO BID 7 Days #14 tab 08/19/21 [Augmentin] tamsulosin [Flomax] 0.4 mg PO DAILY #10 cap 08/19/21 Previous Rx's Medication Instructions Recorded amoxicillin-pot clavulanate 1 tab PO BID 7 Days #14 tab 08/19/21 [Augmentin] tamsulosin [Flomax] 0.4 mg PO DAILY #10 cap 08/19/21 Allergies Allergy/AdvReac Type Severity Reaction Status Date / Time clindamycin Allergy Unverified 08/19/21 07:52 venom-honey bee Allergy Anaphylaxsi Unverified 08/19/21 07:52 [bee venom (honey bee)] s codeine AdvReac Unverified 08/19/21 07:52 General Stated Complaint: Abd Prob MIRANDA: 3 Review of Systems All systems reviewed & are unremarkable except as noted in HPI and below Constitutional Constitutional: Reports as per HPI, Denies chills and Denies fever(s) Eyes Eyes: Denies blurry vision ENT Ears, Nose, Mouth, and Throat: Denies dizziness, Denies sore throat and Denies throat swelling Cardiovascular Cardiovascular: Denies chest pain and Denies dyspnea Respiratory Respiratory: Denies cough and Denies dyspnea Gastrointestinal Gastrointestinal: Reports abdominal pain, Denies diarrhea and Reports vomiting Genitourinary Genitourinary: Denies hematuria and Denies dysuria Musculoskeletal Musculoskeletal: Reports back pain and Denies numbness Integumentary/Breasts Skin/Breast: Denies lesions and Denies rash Neurologic Neurologic: Denies dizziness, Denies localized weakness and Denies numbness Allergic/Immunologic Allergic/Immunologic: Denies throat swelling [facility] Medical History (Updated 08/19/21 @ 09:56 by Gertrudis Tuttle DO) ADD (attention deficit disorder) Opiate addiction Surgical History No significant past surgical history Social History Smoking/Tobacco Use Status: Current every day Tobacco Type: cigarettes Smoking risk assessment performed?: Yes Alcohol Intake: never Drug use: Never Substance use type: former substance user Do you feel safe at home: Yes Do you feel safe in your relationship?: Yes Exam Const General: cooperative, uncomfortable and no acute distress Orientation: alert, awake and oriented x3 HENMT Head: normal to inspection Face and sinus: normal facial exam Eyes General: appearance normal, both eyes and all related structures EOM: EOM intact bilaterally Neck Neck: normal visual inspection and No submandibular swelling Lymphatic: no lymphadenopathy noted Chest Chest: normal inspection of the chest and no tenderness Resp Effort & Inspection: normal respiratory effort and able to speak in complete sentences Auscultation: clear to auscultation bilaterally Cardio Rate: regular rate Rhythm: regular rhythm GI Inspection: normal to inspection Palpation: soft, not firm, not rigid and tender in the LLQ (minimal) Auscultation: no hypoactive bowel sounds Male General Exam: Yes normal external exam Penis: normal penis Scrotum: scrotum normal, not edematous, not erythematous and no scrotal swelling Testes: no testicular swelling and no testicular tenderness Skin General skin exam: no rashes or lesions noted Neuro General: patient alert, patient awake and patient oriented x3 Cognition: normal cognition Speech: speech normal Motor: muscle tone normal throughout Sensory Exam: no sensory deficits noted Extrem General: normal to inspection, full ROM, capillary refill normal, no calf tenderness bilaterally and no edema Psych Appearance: grossly normal Mental Status: mental status grossly normal Speech and Movement: speech and movement normal Affect: normal affect Course Vital Signs Vital signs: Vital Signs Pulse 74 08/19/21 07:47 Respiratory Rate 16 08/19/21 07:47 Blood Pressure 153/92 H 08/19/21 07:47 Pulse Oximetry 97 08/19/21 07:47 Pulse 74 08/19/21 07:47 Respiratory Rate 16 08/19/21 07:47 Respiratory Effort Non-Labored 08/19/21 07:47 Blood Pressure 153/92 H 08/19/21 07:47 Blood Pressure Position Supine 08/19/21 07:47 Pulse Oximetry 97 08/19/21 07:47 Oxygen Delivery Method Room Air 08/19/21 07:47 Oxygen Flow Rate 0 08/19/21 07:47 Pain Level 10 08/19/21 07:47
[2021-08-19] MEDS: Ketorolac 30 MG/ML VIAL IVP (08:05)
[2021-08-19] MEDS: Normal Saline 1,000 ML 1000 ML IV (08:08)
[2021-08-19 08:11] LABS: Abs Immature Grans 0.04 10^3/uL (0.0-0.06); Absolute Basophil Count 0.05 10^3/uL (0.0-0.2); Absolute Eosinophil Count 0.07 10^3/uL (0.0-0.7); Absolute Monocyte Count 0.58 10^3/uL (0.1-0.8); Absolute Neutrophil Count 7.06 10^3/uL (1.2-6.7); Basophils % 0.5; Eosinophils % 0.7; HCT 44.5 % (40.0-50.0); HGB 14.5 g/dL (13.5-17.5); Immature Grans % 0.4; Lymphocytes % 17.9; MCH 28.9 pg (27.0-33.0); MCHC 32.6 % (32.0-36.0); MCV 88.6 fL (80-95); Monocytes % 6.1; Neutrophils % 74.4; Nucleated RBC 0 %; Platelet Count 224 10^3/uL (130-400); RBC 5.02 10^6/uL (4.36-5.78); RDW 11.9 % (11.8-14.1); RDW-SD 38.5 fL
[2021-08-19 08:19] LABS: Bilirubin Negative (Negative); Blood Trace-intact (Negative); Clarity Clear (Clear); Glucose Negative (Negative); Ketones Negative (Negative); Leukocyte Esterase Negative (Negative); Nitrite Negative (Negative); Specific Gravity >= 1.030 (1.005-1.025); Urobilinogen 0.2 EU/dL (Up TO 0.2)
[2021-08-19 08:25] LABS: Bacteria Many HPF (Negative); C & S Indicated? Yes; Casts Negative LPF (Negative); Crystals Negative HPF (Negative); Epithelial Cells Rare HPF (Negative); Mucus Moderate (Negative); WBC 0-2 HPF (0-5)
[2021-08-19 08:30] LABS: ALT 25 U/L (16-63); AST 21 U/L (15-37); Albumin 3.9 g/dL (3.4-5.0); Alkaline Phosphatase 105 U/L (46-116); Anion Gap 8.2 mmol/L (3-11); BUN 13 mg/dL (7-18); Bilirubin, Total 0.4 mg/dL (0.2-1.0); CO2 30.8 mmol/L (21.0-32.0); CREATININE 1.1 mg/dL (0.70-1.30); Calcium 9.1 mg/dL (8.5-10.1); Chloride 101 mmol/L (98-107); Glucose 140 mg/dL (74-106); Potassium 3.6 mmol/L (3.5-5.1); Sodium 140 mmol/L (136-145); Total Protein 7.9 g/dL (6.4-8.2)
--- NOTE | 2021-08-19 09:33 | DI.VRAD_ITS ---
Addendum created by Rudy Stroud MD on 08/19/2021 9:35:44 AM EDT: THIS REPORT CONTAINS FINDINGS THAT MAY BE CRITICAL TO PATIENT CARE. The findings were verbally communicated by me to jessica arias via telephone conference at 9:35 AM EDT on 08/19/2021. The findings were acknowledged and understood. Initial report created on 08/19/2021 9:33:12 AM EDT: PROCEDURE INFORMATION: Exam: CT Abdomen And Pelvis Without Contrast Exam date and time: 08/19/2021 8:02 AM Age: 41 years old Clinical indication: Other: L flank pain, R/O kidney stone TECHNIQUE: Imaging protocol: Computed tomography of the abdomen and pelvis without contrast. COMPARISON: No relevant prior studies available. FINDINGS: Lungs: Lung bases show patchy abnormal opacity on the right of concern for potential pneumonia. Left lung base is clear. Liver: Normal. No mass or intrahepatic biliary ductal dilatation. Gallbladder and bile ducts: Normal. No calcified stones. No ductal dilation. Pancreas: Normal. No mass or ductal dilation. Spleen: Normal. No splenomegaly. Adrenal glands: Normal. No mass. Kidneys and ureters: There is a tiny calcification in the lower pole of the left kidney. No stones are seen on the right. There is mild left-sided hydronephrosis with perinephric stranding. The left ureter is dilated to the UVJ where there is a tiny 2 mm stone on the verge of passage into the bladder. Stomach and bowel: Unremarkable. No significant dilatation or obstruction. No mucosal thickening or visible mass. Appendix: No evidence of appendicitis. Intraperitoneal space: Unremarkable. No free air. No significant fluid collection. Vasculature: Unremarkable. No abdominal aortic aneurysm or significant atherosclerosis. Lymph nodes: No enlarged retroperitoneal or mesenteric lymph nodes. Urinary bladder: See Kidneys and ureters finding. Reproductive: Unremarkable as visualized. Bones/joints: Unremarkable. No acute fracture. No lytic lesion. Soft tissues: Unremarkable. IMPRESSION: 1. Left-sided nephrolithiasis with a 2 mm stone at the left UVJ producing partial obstruction. 2. Infiltrate in the right lung base of concern for potential pneumonia. Dictated and Authenticated by: Rudy Stroud MD. Ordering:DANNA Caba MD
[2021-08-19] MEDS: Methadone Liquid 10 MG/ML 100 MG PO (09:55)
[2021-08-19] MEDS: Tamsulosin 0.4 MG CAPCR PO (09:55)
--- NOTE | 2021-08-19 09:59 | NUR.NOTE ---
Nursing Note: Faxed referral to [facility] Urology for follow up for kidney stones; 1 to 2 weeks. Referral given to Care Management to establish care/hx kidney stones with a PCP. Patricia Sheikh
[2021-08-20 14:06] LABS: COVID-19 RT-PCR UVMMC Result Negative (Negative)
--- NOTE | 2021-08-20 17:15 | NUR.NOTE ---
negative covid result relayed via phone. spoke to pt.Nursing Note:
--- NOTE | 2021-08-21 12:29 | PDOC.ERCMPRO ---
- If Service Date Differs Date of service: 08/21/21 Time of Service: 12:29 Care Management Progress Note Agustin is seen in the ED for ureterolithiasis and pneumonia. At the request of ED provider, CM coordinates a referral to Nati Parra aprn, of [facility], on-call provider, to assist Agustin in obtaining a follow up appointment and in establishing care with a PCP. A referral has already been made to Urology by the ED.
== END 2021-08-19 10:12 | disposition home or self-care (01) ==
PROVIDERS: Emergency Provider Physician Assistant
DX: N13.2 Hydronephrosis with renal and ureteral calculous obstruction (principal); J18.8 Other pneumonia, unspecified organism; Z87.442 Personal history of urinary calculi; Z20.822 Contact with and (suspected) exposure to COVID-19; Z03.818 Encounter for observation for suspected exposure to other biological agents ruled out
CPT/HCPCS: 36415; 80053; 96361; 96365; 96375; 99284; U0003; U0005; 74176; 81003; 81015; 85025; 87086; J1885

== ENCOUNTER 2021-08-20 08:43 | Emergency (ER) | payer MEDICARE, MEDICAID, SELFPAY ==
[2021-08-20 08:47] VITALS: BP 107/74; PULSE 75; RESP 16; TEMP 36.3; O2SAT 96
--- NOTE | 2021-08-20 08:48 | W.ED.GENAD ---
Discharge Plan Disposition Patient Disposition: HOME Condition: Improving Discharge Details Clinical Impression: Kidney stone on left side Primary Care Provider: None,None ED Provider: Rudy Ceja Home Meds and New Rx's Prescriptions: Continued ibuprofen 600 MG tablet 1,600 mg PO QID PRN PRNRF: 0 methadone 10 mg/5 mL Solution 100 mg PO DAILY RF: 0 acetaminophen [Tylenol Extra Strength] 500 mg Tablet 1,500 mg PO QID PRNRF: 0 amoxicillin-pot clavulanate [Augmentin] 875-125 mg tablet 1 tab PO BID 7 Days Qty: 14 RF: 0 tamsulosin [Flomax] 0.4 mg capsule 0.4 mg PO DAILY Qty: 10 RF: 0 Discharge Instructions Instructions: Kidney Stones (ED) Additional Instructions: Follow-up with the clinic for your routine medication doses tomorrow as per routine. Continue your normal medications. Take Augmentin as prescribed. Flomax should be used if you continue to have flank or kidney pain, but may be discontinued if the pain and urination are normalized. Return for fever, vomiting or any other acute concerns. Medical Decision Making 41-year-old male seen in the emerge department yesterday for a 3 mm ureteral calculus. He has chronically been maintained on 100 mg of methadone, due to the ER visit he missed his dose yesterday. His pain is improved. He was also placed on Augmentin for question of lower lobe pneumonia, but has had no cough or fever. He feels well. As per yesterday's plan we will dispense today's dose of methadone and then he will resume with the methadone clinic. His COVID-19 test remains pending HPI General Mode of arrival: ambulatory. Date/Time Provider Initiated Documentation: 08/20/21 08:43. Limitations to Documentation: no limitations. Information obtained by: patient. History of Present Illness 41 year old M presents to the emergency department with the chief complaint of Recheck, needs methadone dose as per plan. No pain, and it has been now resolved. No relieving factors improve symptom(s), No exacerbating factors reported . Patient notes no other symptoms.. Patient did receive the following treatments prior to arrival, none Related Data Home Medications Medication Instructions Recorded Confirmed acetaminophen [Tylenol Extra 1,500 mg PO QID PRN 12/19/19 08/19/21 Strength] ibuprofen 1,600 mg PO QID PRN PRN 02/21/20 08/19/21 methadone 100 mg PO DAILY 09/23/20 08/20/21 amoxicillin-pot clavulanate 1 tab PO BID 7 Days #14 tab 08/19/21 [Augmentin] tamsulosin [Flomax] 0.4 mg PO DAILY #10 cap 08/19/21 08/20/21 Previous Rx's Medication Instructions Recorded amoxicillin-pot clavulanate 1 tab PO BID 7 Days #14 tab 08/19/21 [Augmentin] tamsulosin [Flomax] 0.4 mg PO DAILY #10 cap 08/19/21 Allergies Allergy/AdvReac Type Severity Reaction Status Date / Time clindamycin Allergy Unverified 08/20/21 08:50 venom-honey bee Allergy Anaphylaxsi Unverified 08/20/21 08:50 [bee venom (honey bee)] s codeine AdvReac Unverified 08/20/21 08:50 General MIRANDA: 3 Review of Systems Narrative: Normal urination and flow. No fever. No vomiting. Feels well. 6 systems reviewed and otherwise negative. [facility] Medical History (Updated 08/20/21 @ 08:51 by Rudy Ceja MD) ADD (attention deficit disorder) Opiate addiction Surgical History No significant past surgical history Social History Smoking/Tobacco Use Status: Current every day Tobacco Type: cigarettes Smoking risk assessment performed?: Yes Alcohol Intake: never Drug use: Never Substance use type: former substance user Do you feel safe at home: Yes Do you feel safe in your relationship?: Yes Exam Narrative Exam Narrative: GEN: awake, alert, oriented 3. Pleasant, well groomed, interactive. HEAD: Normocephalic, atraumatic ENT: External ear exam unremarkable EYES: PERRL, EOMI NECK: Full ROM, no BURAK, no menigismus CHEST/RESP: Nontender, clear to auscultation bilateral, no wheeze/rhonchi/rales CARDIOVASCULAR: RRR, no murmur, rub laura. 2+ Rad pulse bilateral ABDOMEN: Soft, nontender, no mass. +Bowel sounds EXT: Full ROM, no edema, no rash Neuro: Grossly normal neurologic exam, conversant, interactive. Psych: Speech fluent, thoughts congruent, affect normal
[2021-08-20] MEDS: Methadone Liquid 10 MG/ML 100 MG PO (08:57)
== END 2021-08-20 09:02 | disposition home or self-care (01) ==
PROVIDERS: Emergency Provider Emergency Medicine; PCP Nurse Practitioner Family
DX: N20.1 Calculus of ureter (principal)
CPT/HCPCS: 99283; 99281

== ENCOUNTER 2022-06-21 09:25 | Emergency (ER) | payer MEDICARE, MEDICAID, SELFPAY ==
[2022-06-21 09:33] VITALS: BP 182/108; PULSE 75; RESP 16; TEMP 36.6; O2SAT 96
--- NOTE | 2022-06-21 09:45 | DI.CT_ITS ---
Exam(s) CT RENAL COLIC WO EXAM: CT RENAL COLIC WO CLINICAL HISTORY: L flank pain. TECHNIQUE: Imaging Protocol: Axial computed tomography images with coronal and sagittal reformatted images were created and reviewed. CONTRAST MATERIAL: Noncontrast COMPARISON: CT CT RENAL COLIC WO from 08/19/2021 FINDINGS: ABDOMEN: Lung Bases: Normal where visualized. Liver: Normal attenuation. No measurable mass. Gallbladder and biliary tract: No radiodense calculus or dilation. Pancreas: Normal density, no calcifications or inflammatory process. Spleen: Normal. Kidneys: Normal size, contour and axis. 2 millimeter stone left ureterovesical junction causing mild left hydronephrosis. Additional 1-2 millimeter nonobstructing stone is seen in the lower pole of the left kidney. Tiny stone is also noted at the lower pole of the right kidney. No masses seen. Adrenal glands: No masses seen. Abdominal Aorta: Abdominal portion non-dilated. PELVIS: Bladder: Symmetric distention, no gross wall thickening. Bowel: No obstruction or bowel wall thickening. Peritoneal cavity: No ascites, collection or mesenteric inflammatory response. Bones: Within normal limits. IMPRESSION: Mild left hydronephrosis secondary to a 2 millimeter stone at the ureterovesical junction. Additiona l tiny nonobstructing renal calculi are seen bilaterally. Results of this exam have been verbally communicated with the emergency department provider. RADIATION DOSE DELIVERED: 809.45mGy.cm Total DLP DATA REPOSITORY: All CT scans at this facility are submitted to the National Radiology Data Registry (NRDR) Dose Index Registry (DIR) with the [employer] (ACR). RADIATION OPTIMIZATION: All CT scans at this facility use at least one of these dose optimization te chniques: automated exposure control; mA and/or kV adjustment per patient size (includes targeted exa ms where dose is matched to clinical indication); or iterative reconstruction.
--- NOTE | 2022-06-21 09:48 | ED.GENADUL_ITS ---
Discharge Plan Disposition Patient Disposition: HOME Condition: Improving Discharge Details Clinical Impression: Kidney stone on left side Primary Care Provider: Nati Parra ED Provider: Rudy Ceja Home Meds and New Rx's Prescriptions: New cephalexin 500 mg tablet 500 mg PO TID 7 Days Qty: 21 0RF Continued ibuprofen 600 MG tablet 1,600 mg PO QID PRN PRN methadone 10 mg/5 mL Solution 115 mg PO DAILY Rx Instructions: thru [facility] acetaminophen [Tylenol Extra Strength] 500 mg Tablet 1,500 mg PO QID PRN Discharge Instructions Instructions: Kidney Stones (ED) Additional Instructions: Home to rest today. Tylenol and ibuprofen as well as your prescribed methadone. You have a 2 mm stone above to convert into your bladder. As you discussed there is question of urinary tract infection; take the prescribed antibiotics until finished. Return to the ER for any acute concern. We have placed a follow-up request for [facility] Medical Decision Making 41-year-old male with a history of previous renal colic presents with abrupt onset left flank pain that radiates to his groin. He today is take methadone daily which he did today. Had Tylenol at home in addition to Pyridium. He arrives afebrile but hypertensive and in pain. IV access was, patient given established, patient given ketorolac, Zofran and referred for laboratory and imaging. CBC reveals a white 7, hematocrit 47, platelets 203. Chemistries reassuring with BUN 22, creatinine 1.1. Urinalysis is negative for esterase positive for nitrates, ketones, protein, bilirubin. Culture is being. CT imaging with 2 mm left distal ureteral stone. Patient has nearly passed cyst over hours time. I question true infection we will place him on a course of Keflex. He is stable for discharge home. HPI General Mode of arrival: ambulatory . Date/Time Provider Initiated Documentation: 06/21/22 09:39 . Limitations to Documentation: no limitations . Information obtained by: patient . History of Present Illness 41 year old M presents to the emergency department with the chief complaint of Left flank, described as moderate, Quality is described as dull and constant, and is localized to the left. Patient abdomen and flank. Patient started experiencing this hour(s) and it has been constant. No relieving factors improve symptom(s), No exacerbating factors reported . Patient notes denies chest pain, cough, fever/chills and shortness of breath. Patient did receive the following treatments prior to arrival, other (Acetaminophen) Related Data Home Medications Medication Instructions Recorded Confirmed acetaminophen 500 mg tablet 1,500 mg PO QID PRN 12/19/19 06/21/22 (Tylenol Extra Strength) ibuprofen 600 mg tablet 1,600 mg PO QID PRN PRN 02/21/20 06/21/22 methadone 10 mg/5 mL oral solution 115 mg PO DAILY 09/23/20 06/21/22 cephalexin 500 mg tablet 500 mg PO TID 7 days #21 tabs 06/21/22 Previous Rx's Medication Instructions Recorded cephalexin 500 mg tablet 500 mg PO TID 7 days #21 tabs 06/21/22 Allergies Allergy/AdvReac Type Severity Reaction Status Date / Time clindamycin Allergy Unverified 06/21/22 09:36 venom-honey bee Allergy Anaphylaxsi Unverified 06/21/22 09:36 [bee venom (honey bee)] s codeine AdvReac Unverified 06/21/22 09:36 General Stated Complaint: FlankPain MIRANDA: 3 Review of Systems Narrative: Took Pyridium and acetaminophen 6 systems reviewed and otherwise PFSH All Active Problems (Updated 06/21/22 @ 11:29 by Rudy Ceja MD) Dental infection (Acute) Ureterolithiasis (Acute) Pneumonia (Acute) Kidney stone on left side (Acute) Medical History (Updated 06/21/22 @ 11:29 by Rudy Ceja MD) ADD (attention deficit disorder) Opiate addiction Surgical History No significant past surgical history Social History Smoking/Tobacco Use Status: Current every day Tobacco Type: cigarettes Smoking risk assessment performed?: Yes Alcohol Intake: never Drug use: Never Substance use type: former substance user Do you feel safe at home: Yes Do you feel safe in your relationship?: Yes Exam Narrative Exam Narrative: GEN: awake, alert, oriented 3. Pleasant, well groomed, interactive. HEAD: Normocephalic, atraumatic ENT: Mucous membranes moist, oropharynx unremarkable, External ear exam unremarkable EYES: PERRL, EOMI NECK: Full ROM, no BURAK, no menigismus CHEST/RESP: Nontender, clear to auscultation bilateral, no wheeze/rhonchi/rales CARDIOVASCULAR: RRR, no murmur, rub laura. 2+ Rad pulse bilateral ABDOMEN: Soft, left lower quadrant is tender but without rebound or guarding no mass. Left flank tenderness. +Bowel sounds EXT: Full ROM, no edema, no rash Neuro: Grossly normal neurologic exam, conversant, interactive. Psych: Speech fluent, thoughts congruent, affect normal Course Vital Signs Vital signs: Vital Signs Temperature 36.6 C 06/21/22 09:33 Pulse 75 06/21/22 09:33 Respiratory Rate 16 06/21/22 09:33 Blood Pressure 182/108 H 06/21/22 09:33 Pulse Oximetry 96 06/21/22 09:33 Temperature 36.6 C 06/21/22 09:33 Pulse 75 06/21/22 09:33 Respiratory Rate 16 06/21/22 09:33 Respiratory Effort 06/21/22 09:38 Blood Pressure 182/108 H 06/21/22 09:33 Blood Pressure Position Sitting 06/21/22 09:33 Pulse Oximetry 96 06/21/22 09:33 Oxygen Delivery Method Room Air 06/21/22 09:33 Oxygen Flow Rate 0 06/21/22 09:33 Pain Level 8 06/21/22 09:33
--- NOTE | 2022-06-21 09:58 | NUR.NOTE ---
Nursing Note: Pt info faxed to Urology for follow up in 2-4 weeks for kidney stones. Abril, ED
[2022-06-21 10:08] LABS: Abs Immature Grans 0.03 10^3/uL (0.0-0.06); Absolute Basophil Count 0.05 10^3/uL (0.0-0.2); Absolute Eosinophil Count 0.08 10^3/uL (0.0-0.7); Absolute Lymphocyte Count 1.33 10^3/uL (1.2-3.4); Absolute Monocyte Count 0.52 10^3/uL (0.1-0.8); Basophils % 0.7; Eosinophils % 1.1; HGB 15.7 g/dL (13.5-17.5); Immature Grans % 0.4; Lymphocytes % 17.5; MCH 29.3 pg (27.0-33.0); MCHC 33.4 % (32.0-36.0); MCV 88 fL (80-95); MPV 10.2 fL (8.0-11.0); Monocytes % 6.8; Neutrophils % 73.5; Platelet Count 203 10^3/uL (130-400); RBC 5.35 10^6/uL (4.36-5.78); RDW 12.1 % (11.8-14.1); RDW-SD 38.9 fL; WBC 7.61 10^3/uL (4.4-10.8)
[2022-06-21 10:14] LABS: Bilirubin Small (Negative); Blood Moderate (Negative); Clarity Sl Cloudy (Clear); Glucose 100 mg/dL (Negative); Ketones Trace mg/dL (Negative); Leukocyte Esterase Negative (Negative); Nitrite Positive (Negative); pH 5.5 (5-8)
[2022-06-21 10:23] LABS: ALT 33 U/L (16-63); AST 28 U/L (15-37); Albumin 4.2 g/dL (3.4-5.0); Alkaline Phosphatase 90 U/L (46-116); Anion Gap 6.8 mmol/L (3-11); BUN 22 mg/dL (7-18); Bilirubin, Total 0.7 mg/dL (0.2-1.0); CO2 30.2 mmol/L (21.0-32.0); CREATININE 1.1 mg/dL (0.70-1.30); Calcium 9.1 mg/dL (8.5-10.1); Chloride 102 mmol/L (98-107); Glucose 140 mg/dL (74-106); Potassium 4.4 mmol/L (3.5-5.1); Sodium 139 mmol/L (136-145); Total Protein 8.3 g/dL (6.4-8.2)
[2022-06-21 10:26] LABS: Bacteria Moderate HPF (Negative); C & S Indicated? Yes; Casts Negative LPF (Negative); Crystals Negative HPF (Negative); Epithelial Cells Rare HPF (Negative); Mucus Trace (Negative); RBC 20-50 HPF (0-2); WBC 0-2 HPF (0-5)
== END 2022-06-21 11:45 | disposition home or self-care (01) ==
PROVIDERS: Emergency Provider Emergency Medicine; PCP Nurse Practitioner Family
DX: N13.2 Hydronephrosis with renal and ureteral calculous obstruction (principal); F17.210 Nicotine dependence, cigarettes, uncomplicated
CPT/HCPCS: 36415; 80053; 96361; 96374; 96375; 99284; 74176; 81003; 81015; 85025; 87086

== ENCOUNTER 2023-03-09 20:46 | Emergency (ER) | payer MEDICARE, MEDICAID, SELFPAY ==
--- NOTE | 2023-03-09 20:45 | DI.CT_ITS ---
Exam(s) CT RENAL COLIC WO EXAM: CT RENAL COLIC WO CLINICAL HISTORY: left flank pain. TECHNIQUE: Imaging Protocol: Axial computed tomography images with coronal and sagittal reformatted images were created and reviewed CONTRAST MATERIAL: Intravenous: none Oral: None COMPARISON: CT CT RENAL COLIC WO from 06/21/2022 FINDINGS: VISUALIZED LUNG BASES: No nodules nor pleural effusions evident. ABDOMEN: There is no ascites. LIVER: There are no obvious focal hepatic lesions evident of this noninfused study. GALLBLADDER/BILIARY: No obvious gallbladder pathology. CBD is not dilated. PANCREAS: No evidence of pancreatic mass nor dilatation of the pancreatic duct. SPLEEN: Spleen is not enlarged. No obvious intrasplenic lesions. ADRENALS: There are no significant adrenal masses. KIDNEYS:There are small punctate calculi in the lower poles of both kidneys, 2 on the left and 1 on t he right. There is also mild hydronephrosis and perinephric streaking on the left side. The left ur eter is mildly dilated and there is a calculus at the left ureterovesical junction which measures 2-3 millimeters. Another tiny 1 millimeter punctate calculus is seen adjacent to this calculus in the l ower ureter. There are no calculi in the actual nondistended urinary bladder.. ABDOMINAL AORTA: Abdominal aorta is not enlarged. LYMPH NODES: There is no retroperitoneal nor paraaortic adenopathy. ABDOMINAL WALL: No evidence of significant anterior abdominal wall nor inguinal hernia. GI: There is no evidence of bowel obstruction, free air, nor abscess. PELVIS: LYMPH NODES: There is no intrapelvic nor inguinal adenopathy. GI: No evidence of appendicitis.No evidence of sigmoid diverticulitis. URINARY BLADDER: As above. REPRODUCTIVE: Prostate size normal. Seminal vesicles unremarkable. OSSEOUS: No significant osseous lesions. IMPRESSION: 1. There are adjacent 3 and 1 mm calculi in the distal left ureter at the UVJ with mild dilatation le ft collecting system above this level. 2. There are additional punctate calculi seen in the lower poles of both kidneys as described above. 3. No other significant findings. RADIATION DOSE DELIVERED: 1,036.08mGy.cm Total DLP DATA REPOSITORY: All CT scans at this facility are submitted to the National Radiology Data Registry (NRDR) Dose Index Registry (DIR) with the [employer] (ACR). RADIATION OPTIMIZATION: All CT scans at this facility use at least one of these dose optimization te chniques: automated exposure control; mA and/or kV adjustment per patient size (includes targeted exa ms where dose is matched to clinical indication); or iterative reconstruction.
[2023-03-09 20:49] VITALS: BP 162/98; PULSE 80; RESP 20; TEMP 36.9; O2SAT 98
[2023-03-09 21:13] LABS: Bilirubin Negative (Negative); Blood Large (Negative); Clarity Sl Cloudy (Clear); Glucose Negative (Negative); Ketones Negative (Negative); Leukocyte Esterase Negative (Negative); Nitrite Negative (Negative); Specific Gravity 1.025 (1.005-1.025); Urobilinogen 0.2 mg/dL (Up to 0.2)
[2023-03-09 21:18] LABS: Bacteria Negative HPF (Negative); C & S Indicated? No; Casts Negative LPF (Negative); Crystals Negative HPF (Negative); Epithelial Cells Negative HPF (Negative); Mucus Negative (Negative); RBC >50 HPF (0-2); WBC Negative HPF (0-5)
--- NOTE | 2023-03-09 21:34 | ED.GENADUL_ITS ---
Discharge Plan Disposition Patient Disposition: Home Condition: Stable Discharge Details Clinical Impression: Kidney stone on left side Primary Care Provider: None,None ED Provider: Arsh Umana Home Meds and New Rx's Prescriptions: New tamsulosin [Flomax] 0.4 mg capsule 0.4 mg PO DAILY Qty: 14 0RF Continued methadone 10 mg/5 mL Solution 115 mg PO DAILY Rx Instructions: thru [facility] Changed acetaminophen [Tylenol Extra Strength] 500 mg Tablet 1,000 mg PO QID PRNQty: 0 0RF ibuprofen 600 MG tablet 600 mg PO QID PRN PRNQty: 0 0RF Discharge Instructions Instructions: Kidney Stones (ED) Additional Instructions: Please take the provided narcotics only for severe pain and discomfort. If you have any new or significant worsening of symptoms, fever chills, or other concerns feel free to return the emergency department for reassessment. Otherwise on Saturday please call urology for arrangement of follow-up appointment and stay well-hydrated. Referrals: [facility] [Provider Group] - 2 weeks (Please call the office on Saturday for arrangement of follow-up appointment if you have not passed your stone.) Medical Decision Making Patient presenting to the emergency department chief complaint of left flank pain. Patient states this is exactly the same as when he previously had kidney stones. Patient does state he had dark urine a couple days ago but that seemed to have went away and over the past 2 days or so he has had worsening flank pain with no radiating into his abdomen. Does state some associated nausea. Denies all other symptoms. Physical exam shows no CVA tenderness but does show tenderness to lower lumbar paraspinal tissue. Exam is otherwise unremarkable. Differential diagnosis includes kidney stone, lumbar strain, sciatica. Less likely and not clinically consistent with AAA, cauda equina, paraspinal abscess. We will perform CT imaging and urinalysis. Was also going to check patient's blood work but patient states he is severely needle phobic and request us to only do blood work if necessary. Given patient's history of renal calculi and him stating similar presentation in the past we will proceed just with urinalysis and CT. Pending results we will give patient ODT Zofran and p.o. ketorolac Reviewed urinalysis that shows large amount of blood and RBCs otherwise negative. Pending results from CT imaging patient stated some increase in pain so did give patient p.o. acetaminophen. Reviewed CT imaging which shows adjacent 2 and 1 mm calculi distal left ureter with left hydronephrosis. Patient reassessed and still states some pain and discomfort. Verified on patient's records that last time he was diagnosed and had kidney stones he was given to go bottle of limited narcotic. Did have thorough discussion with patient in regards to his history and currently being treated for opiate abuse. Patient stated that he did not have any problems last time and did state his pain was still fairly significant. Given interaction with patient I do feel comfortable with patient having limited supply due to patient's severe pain and discomfort. PDMP was also reviewed and no records were noted. Patient given Flomax and placed upon follow-up with urology. After discussion of diagnosis and plan of care patient has no further needs, questions, or concerns and states clear understanding to return to the emergency department for any worsening symptoms. This documentation was generated using [employer] dictation system, please disregard any oddities of phrase or misspellings. Imaging Data Radiologic Study: Attestation: I personally reviewed and interpreted this imaging study as follows: Imaging: CT Scan Radiologist's impression: Exam(s) PROCEDURE INFORMATION: Exam: CT Abdomen And Pelvis Without Contrast Exam date and time: 03/09/2023 21:10 Age: 42 years old Clinical indication: Abdominal pain; Flank; Left TECHNIQUE: Imaging protocol: Computed tomography of the abdomen and pelvis without contrast. COMPARISON: CT RENAL COLIC WO 06/21/2022 11:00 FINDINGS: Liver: No hepatic masses on noncontrast imaging. Gallbladder and bile ducts: No calcified stones. No ductal dilation. Pancreas: No gross pathology in the pancreas on noncontrast imaging. Spleen: No splenomegaly or focal lesions. Adrenal glands: No mass. Kidneys and ureters: Nonobstructive subcentimeter right nephrolithiasis. Adjacent, 2 and 1 mm calculi in the distal left ureter causing moderate left hydronephrosis. Subcentimeter left nephrolithiasis. Stomach and bowel: A few scattered colonic diverticula without inflammation. No colitis. No gross pathology in the small bowel without IV contrast. Appendix: No evidence of appendicitis. Intraperitoneal space: No free air. No significant fluid collection. Vasculature: No abdominal aortic aneurysm. Lymph nodes: No significantly enlarged lymph nodes. Urinary bladder: Unremarkable as visualized. Reproductive: Unremarkable as visualized. Bones/joints: The bones appear mildly demineralized for age. No acute fracture or subluxation. Soft tissues: No suspicious lesions. IMPRESSION: 1. Adjacent, 2 and 1 mm calculi in the distal left ureter causing moderate left hydronephrosis. 2. Additional findings as described. HPI General Mode of arrival: ambulatory . Date/Time Provider Initiated Documentation: 03/09/23 20:47 . Limitations to Documentation: no limitations . Information obtained by: patient and RN notes reviewed . History of Present Illness 42 year old M presents to the emergency department with the chief complaint of Left flank pain, described as moderate and similar to prior episodes, with intensity rated at 8. Quality is described as aching and sharp, and is localized to the left (flank). Patient abdomen. Patient started experiencing this day(s) (2) and it has been constant. No relieving factors improve symptom(s), No exacerbating factors reported . Patient did receive the following treatments prior to arrival, NSAID Related Data Home Medications Medication Instructions Recorded Confirmed methadone 10 mg/5 mL oral solution 115 mg PO DAILY 09/23/20 06/21/22 acetaminophen 500 mg tablet 1,000 mg PO QID PRN #0 tabs 03/09/23 06/21/22 (Tylenol Extra Strength) ibuprofen 600 mg tablet 600 mg PO QID PRN PRN #0 tabs 03/09/23 06/21/22 tamsulosin 0.4 mg capsule (Flomax) 0.4 mg PO DAILY #14 caps 03/09/23 Previous Rx's Medication Instructions Recorded acetaminophen 500 mg tablet 1,000 mg PO QID PRN #0 tabs 03/09/23 (Tylenol Extra Strength) ibuprofen 600 mg tablet 600 mg PO QID PRN PRN #0 tabs 03/09/23 tamsulosin 0.4 mg capsule (Flomax) 0.4 mg PO DAILY #14 caps 03/09/23 Allergies Allergy/AdvReac Type Severity Reaction Status Date / Time clindamycin Allergy Unverified 06/21/22 09:36 venom-honey bee Allergy Anaphylaxsi Unverified 06/21/22 09:36 [bee venom (honey bee)] s codeine AdvReac Unverified 06/21/22 09:36 General Stated Complaint: FlankPain MIRANDA: 3 Review of Systems Constitutional Constitutional: Denies chills and Denies fever(s) Cardiovascular Cardiovascular: Denies chest pain and Denies dyspnea Respiratory Respiratory: Denies dyspnea Gastrointestinal Gastrointestinal: Reports abdominal pain, Reports nausea and Denies vomiting Genitourinary Genitourinary: Reports as per HPI, Denies hematuria, Denies oliguria, Denies difficulty urinating, Denies dysuria, Reports flank pain and Reports other (Dark urine 2 days ago) Musculoskeletal Musculoskeletal: Reports back pain PFSH All Active Problems (Updated 03/09/23 @ 22:05 by Arsh Umana NP) Dental infection (Acute) Ureterolithiasis (Acute) Pneumonia (Acute) Kidney stone on left side (Acute) Medical History (Updated 03/09/23 @ 22:05 by Arsh Umana NP) ADD (attention deficit disorder) Opiate addiction Surgical History No significant past surgical history Social History Smoking/Tobacco Use Status: Current every day Tobacco Type: cigarettes Smoking risk assessment performed?: Yes Alcohol Intake: never Drug use: Never Substance use type: former substance user Do you feel safe at home: Yes Do you feel safe in your relationship?: Yes Exam Const General: cooperative Orientation: alert, awake and oriented x3 Resp Effort & Inspection: normal respiratory effort and able to speak in complete sentences Auscultation: clear to auscultation bilaterally Cardio Rate: regular rate Rhythm: regular rhythm Heart Sounds: S1 normal and S2 normal GI Palpation: soft, no hepatosplenomegaly, not firm, no guarding, no masses, no pulsatile masses, not rigid, no splenomegaly and tender Auscultation: normal bowel sounds Back/Spine/Pelvis Back: no CVA tenderness Thoracic/Lumbar Spine: paraspinal tenderness (Left lower lumbar), No thoracic spinal tenderness and No lumbar spinal tenderness Neuro General: patient alert, patient awake, patient oriented x3, gait normal and moves all extremities Course Vital Signs Vital signs: Vital Signs Temperature 36.9 C 03/09/23 20:49 Pulse 80 03/09/23 20:49 Respiratory Rate 20 03/09/23 20:49 Blood Pressure 162/98 H 03/09/23 20:49 Pulse Oximetry 98 03/09/23 20:49 Temperature 36.9 C 03/09/23 20:49 Temperature Source Oral 03/09/23 20:49 Pulse 80 03/09/23 20:49 Respiratory Rate 20 03/09/23 20:49 Respiratory Effort Normal 03/09/23 21:20 Blood Pressure 162/98 H 03/09/23 20:49 Blood Pressure Position Sitting 03/09/23 20:49 Pulse Oximetry 98 03/09/23 20:49 Oxygen Delivery Method Room Air 03/09/23 20:49 Oxygen Flow Rate 0 03/09/23 20:49 Pain Level 10 03/09/23 20:49 Lab/Test Results Lab/Test Results: Laboratory Tests Range/Units 03/09/23 21:00 Urine Color (Yellow) Yellow Urine Clarity (Clear) Sl Cloudy Urine pH (5-8) 6.0 Ur Specific [place] (1.005-1.025) 1.025 Urine Protein (Negative) mg/dL Negative Urine Ketones (Negative) mg/dL Negative Urine Blood (Negative) Large H Urine Nitrite (Negative) Negative Urine Bilirubin (Negative) Negative Urine Urobilinogen (Up to 0.2) mg/dL 0.2 Ur Leukocyte Esterase (Negative) Negative Urine RBC (0-2) HPF >50 H Urine WBC (0-5) HPF Negative Ur Epithelial Cells (Negative) HPF Negative Urine Crystals (Negative) HPF Negative Urine Bacteria (Negative) HPF Negative Urine Casts (Negative) LPF Negative Urine Mucus (Negative) Negative Ur Culture Indicated? No Urine Glucose (Negative) mg/dL Negative
[2023-03-09] MEDS: Ondansetron O.D.T. 4 MG TABEF PO (21:36)
[2023-03-09] MEDS: Ketorolac 10 MG TAB PO (21:36)
[2023-03-09] MEDS: Acetaminophen 500 MG TAB 1000 MG PO (21:59)
--- NOTE | 2023-03-09 22:07 | DI.VRAD_ITS ---
PROCEDURE INFORMATION: Exam: CT Abdomen And Pelvis Without Contrast Exam date and time: 03/09/2023 21:10 Age: 42 years old Clinical indication: Abdominal pain; Flank; Left TECHNIQUE: Imaging protocol: Computed tomography of the abdomen and pelvis without contrast. COMPARISON: CT RENAL COLIC WO 06/21/2022 11:00 FINDINGS: Liver: No hepatic masses on noncontrast imaging. Gallbladder and bile ducts: No calcified stones. No ductal dilation. Pancreas: No gross pathology in the pancreas on noncontrast imaging. Spleen: No splenomegaly or focal lesions. Adrenal glands: No mass. Kidneys and ureters: Nonobstructive subcentimeter right nephrolithiasis. Adjacent, 2 and 1 mm calculi in the distal left ureter causing moderate left hydronephrosis. Subcentimeter left nephrolithiasis. Stomach and bowel: A few scattered colonic diverticula without inflammation. No colitis. No gross pathology in the small bowel without IV contrast. Appendix: No evidence of appendicitis. Intraperitoneal space: No free air. No significant fluid collection. Vasculature: No abdominal aortic aneurysm. Lymph nodes: No significantly enlarged lymph nodes. Urinary bladder: Unremarkable as visualized. Reproductive: Unremarkable as visualized. Bones/joints: The bones appear mildly demineralized for age. No acute fracture or subluxation. Soft tissues: No suspicious lesions. IMPRESSION: 1. Adjacent, 2 and 1 mm calculi in the distal left ureter causing moderate left hydronephrosis. 2. Additional findings as described. Dictated and Authenticated by: Tia Perea MD. Ordering:MAUREEN Caban MD
[2023-03-09] MEDS: Tamsulosin 0.4 MG CAPCR PO (22:25)
--- NOTE | 2023-03-10 00:25 | NUR.NOTE ---
Referral faxed to [facility] Urology to f/u for kidney stone.Nursing Note:
== END 2023-03-09 22:35 | disposition home or self-care (01) ==
PROVIDERS: Emergency Provider Nurse Practitioner Family
DX: N13.2 Hydronephrosis with renal and ureteral calculous obstruction (principal); Z72.0 Tobacco use
CPT/HCPCS: 99284; 74176; 81003; 81015

== ENCOUNTER 2024-03-23 08:58 | Emergency (ER) | payer MEDICARE, MEDICAID, SELFPAY ==
[2024-03-23 09:14] VITALS: BP 135/73; PULSE 68; RESP 18; TEMP 36.8; O2SAT 98
--- NOTE | 2024-03-23 09:30 | ED.GENADUL_ITS ---
Discharge Plan Disposition Patient Disposition: Home Condition: Stable Discharge Details Clinical Impression: Contusion of right hand Primary Care Provider: Unknown,Unknown ED Provider: Hermes Colindres Home Meds and New Rx's Prescriptions: Continued methadone 10 mg/5 mL Solution 115 mg PO DAILY Rx Instructions: thru [facility] acetaminophen [Tylenol Extra Strength] 500 mg Tablet 1,000 mg PO QID PRNQty: 0 0RF ibuprofen 600 MG tablet 600 mg PO QID PRN PRNQty: 0 0RF tamsulosin [Flomax] 0.4 mg capsule 0.4 mg PO DAILY Qty: 14 0RF Discharge Instructions Instructions: Contusion in Adults (ED) Additional Instructions: You were seen in the emergency department for the injury to your right hand. There is no fracture on x-ray. This is likely just a contusion. Please rest, ice, elevate your hand often over the next few days, please use therapeutic dosing of Tylenol (acetamenophen) & Advil (ibuprofen) in an alternating fashion as follows: Take 1000mg of Tylenol every 6 hours without missing doses- that is 4 times per day. [place] in between the Tylenol dosings, take 400-600mg of Advil also on a 6 hour schedule, that is also 4 times per day. The daily maximum dosing of Tylenol is 4000mg, and the daily maximum dosing of Advil is 2400mg. This is safe to do for weeks. Please note that some common cold medications & prescription pain medications may contain acetamenophen and you need to read OTC drug labels and factor that in to maximum daily dosings. Your injury should begin to improve 3 to 4 days. Please return for any complete numbness or inability to use the right hand, persistent sharp pain at the base of the thumb. Discharge Data Discharge Date/Time-TO BE ENTERED AT DEPARTURE: 03/23/24 11:00 HPI General Date/Time Provider Initiated Documentation: 03/23/24 09:30 . HPI Narrative: 43 year-old female presents to ED today by POV/ambulating with a chief complaint of R hand injury - struck with a hammer yesterday, R-hand dominant. Quality described as aching pain, no radiation to numbness/tingling, open lesion, large swelling, deformity, bruising, inability to move fingers. Severity is described as moderate. Palliating factors include nothing specific. Provoking factors include nothing specific. Patient not anticoagulated. Related Data Home Medications Medication Instructions Recorded Confirmed methadone 10 mg/5 mL oral solution 115 mg PO DAILY 09/23/20 03/23/24 acetaminophen 500 mg tablet 1,000 mg (2 x 500 mg) PO QID PRN 03/09/23 03/23/24 (Tylenol Extra Strength) #0 tabs ibuprofen 600 mg tablet 600 mg PO QID PRN PRN #0 tabs 03/09/23 03/23/24 tamsulosin 0.4 mg capsule (Flomax) 0.4 mg PO DAILY #14 caps 03/09/23 03/23/24 Previous Rx's Medication Instructions Recorded acetaminophen 500 mg tablet 1,000 mg (2 x 500 mg) PO QID PRN 03/09/23 (Tylenol Extra Strength) #0 tabs ibuprofen 600 mg tablet 600 mg PO QID PRN PRN #0 tabs 03/09/23 tamsulosin 0.4 mg capsule (Flomax) 0.4 mg PO DAILY #14 caps 03/09/23 Allergies Allergy/AdvReac Type Severity Reaction Status Date / Time clindamycin Allergy Other (See Unverified 03/23/24 09:17 Comment) venom-honey bee Allergy Anaphylaxsi Unverified 03/23/24 09:17 [bee venom (honey bee)] s codeine AdvReac Skin Rash Unverified 03/23/24 09:17 General Stated Complaint: Orthopedic MIRANDA: 4 Review of Systems All systems reviewed & are unremarkable except as noted in HPI and below Exam Narrative Exam Narrative: GENERAL APPEARANCE: Well-nourished, non-toxic, awake and alert, atraumatic, no acute distress. SKIN: Warm, pink, dry, intact, without rashes/lesions/ulcerations. HEAD: Normocephalic, atraumatic, normal hair distribution for gender/age. EYES: Pupils PERRLA, EOMs intact without nystagmus, normal conjunctiva, no exuda rahul on lids/lashes. ENT: Nares patent, no circumoral cyanosis, no facial swelling NECK: Supple, trachea midline, painless cervical ROM. LUNGS/CHEST: Non-labored respirations, normal A/P diameter, symmetrical expansion, no chest wall deformity HEART (CV/PV): Regular rate, R radial pulse 2+, no peripheral edema, no JVD. ABDOMEN: Soft, non-distended, no guarding. MSK: Normal ROM, no swelling/deformity to bilateral UEs or LEs, moving all extremities without weakness, no cyanosis, spine midline without tenderness, normal curvature. R HAND: Diffuse mild swelling without ecchymosis, no crepitus over the third MCP, tenderness on the dorsal aspect of the hand, able to move all fingers, right radial pulse 2+, sensation intact, mild anatomical snuffbox tenderness though this is well away from the area of hammer strike. NEURO: Mental Status AAOx4 - alert to person, place, time, events No facial droop, no forehead involvement. Motor: No focal weakness - strength 5/5 in bilateral UEs and LEs, proximal and distal, symmetric. Sensory: sensation intact to light touch globally. Gait normal: patient ambulated without ataxia into ED room. PSYCH: euthymic, cooperative, pleasant, appropriate speech Course Vital Signs Vital signs: Vital Signs Temperature 36.8 C 03/23/24 09:14 Pulse 68 03/23/24 09:14 Respiratory Rate 18 03/23/24 09:14 Blood Pressure 135/73 03/23/24 09:14 Pulse Oximetry 98 03/23/24 09:14 Temperature 36.8 C 03/23/24 09:14 Temperature Source Temporal Artery Scan 03/23/24 09:14 Pulse 68 03/23/24 09:14 Respiratory Rate 18 03/23/24 09:14 Respiratory Effort Normal, Non-Labored 03/23/24 09:18 Blood Pressure 135/73 03/23/24 09:14 Blood Pressure Position Sitting 03/23/24 09:14 Pulse Oximetry 98 03/23/24 09:14 Oxygen Delivery Method Room Air 03/23/24 09:14 Oxygen Flow Rate 0 03/23/24 09:14 Medical Decision Making This dictation utilizes [id number] dictation software and may contain unedited grammatical errors. 43 y/o M presents to ED today with a chief complaint of struck R hand with a hammer yesterday, mild swelling, no bruising, able to move fingers, sensation intact. Patient is R-hand dominant. Patients' medical history: History of opiate addiction. Family and social history: Noncontributory. Pertinent exam findings / vital signs include R HAND: Diffuse mild swelling without ecchymosis, no crepitus over the third MCP, tenderness on the dorsal aspect of the hand, able to move all fingers, right radial pulse 2+, sensation intact, mild anatomical snuffbox tenderness though this is well away from the area of hammer strike. Differential / pathologies of concern include fracture, contusion. Diagnostic studies of: -XR R Hand - no acute fracture seen. Interventions of: -none. ED Course/Assessment/Plan: 43-year-old male presents with right hand injury, he is right-hand dominant he struck his right hand with a hammer yesterday while working. He has mild swelling without deformity or ecchymosis, he is neurovascularly intact, I counseled him on RICE therapy and therapeutic dosing Tylenol and ibuprofen, strict return criteria for neurovascular compromise. Findings not consistent with fracture, neurovascular compromise. Disposition of Contusion of Right Hand. Patient verbalized understanding of the plan and return to ED criteria and engaged in shared decision making. Medical Records Medical records reviewed: Yes I reviewed the patient's medical records. Imaging Data Radiologic Study: Attestation: I personally reviewed and interpreted this imaging study as follows: Imaging: X-Ray Radiologist's impression: EXAM: XR HAND RT COMPLETE CLINICAL HISTORY: struck w hammer yesterday, 3rd MCP focal. TECHNIQUE: 2D digital imaging was performed. COMPARISON: No exams were available for comparison FINDINGS: 3 views No evidence of fracture or dislocation no abnormal soft tissue calcifications. No radiopaque foreign body. Bone density normal. No osseous lesions. No erosions evident. IMPRESSION: No acute osseous findings in the right hand. Quality:SDOH Health Related Social Needs: No Data to Display PFSH All Active Problems (Updated 03/23/24 @ 10:53 by JAYME Curry) Contusion of right hand (Acute) Kidney stone on left side (Acute) Pneumonia (Acute) Ureterolithiasis (Acute) Dental infection (Acute) Medical History (Updated 03/23/24 @ 10:53 by JAYME Curry) ADD (attention deficit disorder) Opiate addiction Surgical History No significant past surgical history Social History Smoking/Tobacco Use Status: Current every day Tobacco Type: cigarettes Smoking risk assessment performed?: Yes Alcohol Intake: never Drug use: Never Substance use type: former substance user Do you feel safe at home: Yes Do you feel safe in your relationship?: Yes
--- NOTE | 2024-03-23 10:14 | DI.RAD_ITS ---
Exam(s) XR HAND RT COMPLETE EXAM: XR HAND RT COMPLETE CLINICAL HISTORY: struck w hammer yesterday, 3rd MCP focal. TECHNIQUE: 2D digital imaging was performed. COMPARISON: No exams were available for comparison FINDINGS: 3 views No evidence of fracture or dislocation no abnormal soft tissue calcifications. No radiopaque foreign body. Bone density normal. No osseous lesions. No erosions evident. IMPRESSION: No acute osseous findings in the right hand. DATA REPOSITORY: RADIATION DOSE DELIVERED:
== END 2024-03-23 11:00 | disposition home or self-care (01) ==
PROVIDERS: Emergency Provider Physician Assistant
DX: S60.221A Contusion of right hand, initial encounter (principal); W22.8XXA Striking against or struck by other objects, initial encounter
CPT/HCPCS: 99283; 73130

== ENCOUNTER 2024-06-17 01:27 | Emergency (ER) | payer MEDICARE, MEDICAID, SELFPAY ==
[2024-06-17 01:33] VITALS: BP 167/113; PULSE 68; RESP 20; TEMP 36.2; O2SAT 96
--- NOTE | 2024-06-17 01:43 | ED.GENADUL_ITS ---
Discharge Plan Disposition Patient Disposition: Home Condition: Good Discharge Details Clinical Impression: Kidney stone, Opioid use disorder Primary Care Provider: Unknown,Unknown ED Provider: Winter Fraire Home Meds and New Rx's Prescriptions: New morphine 15 mg tablet 15 mg PO Q4H PRNQty: 10 0RF tamsulosin 0.4 mg capsule 0.4 mg PO DAILY Qty: 14 0RF Continued methadone 10 mg/5 mL Solution 115 mg PO DAILY Rx Instructions: thru [facility] acetaminophen [Tylenol Extra Strength] 500 mg Tablet 1,000 mg PO QID PRNQty: 0 0RF ibuprofen 600 MG tablet 600 mg PO QID PRN PRNQty: 0 0RF Discharge Instructions Instructions: Kidney Stone, Adult ED Additional Instructions: Tylenol and ibuprofen over the counter; follow the directions on the bottle. You can take oral morphine 15mg up to every 4 hours as needed for pain that does not respond to over the counter medications. Take the tamulosin once a day until the stone passes. Strain all your urine. Call your primary care doctor today to schedule an appointment for within the next week to follow up your visit here. Return to the emergency department for new or worsening symptoms including fever, uncontrolled pain, inability to urinate, or if you have any other concerns. HPI General Mode of arrival: ambulatory . Date/Time Provider Initiated Documentation: 06/17/24 01:36 . Limitations to Documentation: no limitations . Information obtained by: patient . HPI Narrative: 43yo M with hx prior kidney stone presenting with severe left low flank pain radiating into groin that feels identical to prior stone. Tried tylenol and ibuprofen at home without relief. No fever, dysuria, hematuria, abdominal pain, testicular pain, penile discharge, or other concerns. Otherwise in his usual state of health. Prior stone passed without intervention. Related Data Home Medications ?Medication ?Instructions ?Recorded ?Confirmed methadone 10 mg/5 mL oral solution 115 mg PO DAILY 09/23/20 06/17/24 acetaminophen 500 mg tablet 1,000 mg (2 x 500 mg) PO QID PRN 03/09/23 06/17/24 (Tylenol Extra Strength) #0 tabs ibuprofen 600 mg tablet 600 mg PO QID PRN PRN #0 tabs 03/09/23 06/17/24 morphine 15 mg immediate release 15 mg PO Q4H PRN #10 tabs 06/17/24 tablet tamsulosin 0.4 mg capsule 0.4 mg PO DAILY #14 caps 06/17/24 Previous Rx's ?Medication ?Instructions ?Recorded acetaminophen 500 mg tablet 1,000 mg (2 x 500 mg) PO QID PRN 03/09/23 (Tylenol Extra Strength) #0 tabs ibuprofen 600 mg tablet 600 mg PO QID PRN PRN #0 tabs 03/09/23 morphine 15 mg immediate release 15 mg PO Q4H PRN #10 tabs 06/17/24 tablet tamsulosin 0.4 mg capsule 0.4 mg PO DAILY #14 caps 06/17/24 Allergies Allergy/AdvReac Type Severity Reaction Status Date / Time clindamycin Allergy Other (See Unverified 06/17/24 01:36 Comment) venom-honey bee (bee venom Allergy Anaphylaxsi Unverified 06/17/24 01:36 (honey bee)) s codeine AdvReac Skin Rash Unverified 06/17/24 01:36 General Stated Complaint: Urinary MIRANDA: 3 Review of Systems Narrative: see HPI Exam Narrative Exam Narrative: General: Alert, well appearing, well nourished, moderate distress Head: Normocephalic, atraumatic Neck: Trachea midline, ?Neck supple. Cardiac: ?RRR, no murmurs appreciated Resp: No respiratory distress. CTAB. Abd: ?Soft, non-distended, nontender. : ?No suprapubic tenderness. No CVA tenderness. Normal testicular exam with normal lie, non tender. Extremities: ?No deformities.? No peripheral edema. Neurologic: GCS 15. ? Moves all extremities freely against gravity Course Vital Signs Vital signs: Vital Signs Temperature 36.2 C L 06/17/24 01:33 Pulse 68 06/17/24 01:33 Respiratory Rate 20 06/17/24 01:33 Blood Pressure 167/113 H 06/17/24 01:33 Pulse Oximetry 96 06/17/24 01:33 Temperature 36.2 C L 06/17/24 01:33 Temperature Source Skin 06/17/24 01:33 Pulse 68 06/17/24 01:33 Respiratory Rate 20 06/17/24 01:33 Respiratory Effort Normal 06/17/24 01:35 Blood Pressure 167/113 H 06/17/24 01:33 Blood Pressure Position Sitting 06/17/24 01:33 Pulse Oximetry 96 06/17/24 01:33 Oxygen Delivery Method Room Air 06/17/24 01:33 Oxygen Flow Rate 0 06/17/24 01:33 Medical Decision Making 43yo M with hx prior kidney stone presenting with severe left low flank pain radiating into groin that feels identical to prior stone. Associated nausea, no vomiting. Hypertensive on arrival, vital signs otherwise reassuring. Moderate distress on exam, no abdominal or suprapubic tenderness. No fevers. Normal testicular exam, not concerning for torsion. Not suggestive of UTI, pylenonephrititis, acute intarabdominal process. In this otherwise healthy 43yo M with prior stone, would not get imaging at this time. Will treat symptoms with toradol, morphine, zofran; sent labs and urine. Labs reviewed as below, CBC with no leukocytosis to suggest infection, CMP with no actionable abnormalities, UA with hematuria and not infected, consistent with nephrolithiasis. On reassessment patient with continued severe pain. Will give additional dose of morphine. Given refractory symptoms, will eval for presence/size of stone with noncon CT. CT independently reviewed, appears to have stone at right UVJ on my view; radiology read below with 4mm stone. On reassessment patient sleeping, appears to be comfortable. Upon waking, pain adequately controlled. Will discharge home with oral morphine, flomax. Discharge instructions and return precautions were reviewed with patient who verbalized understanding. All questions were answered and he is in full agreement with the plan. Imaging Data Radiologic Study: Imaging: CT Scan Radiologist's impression: IMPRESSION: 1. 4 mm calculus at the right UVJ with moderate right obstructive uropathy. 2. Bilateral nephrolithiasis. Lab Data Lab results reviewed: Yes I reviewed the patient's lab results. Labs: Laboratory Tests Range/Units 06/17/24 06/17/24 01:48 01:49 WBC (4.4-10.8) 10^3/uL 8.97 RBC (4.36-5.78) 10^6/uL 5.03 Hgb (13.5-17.5) g/dL 15.0 Hct (40.0-50.0) % 46.3 MCV (80-95) fL 92 MCH (27.0-33.0) pg 29.8 MCHC (32.0-36.0) % 32.4 RDW (11.8-14.1) % 11.9 Plt Count (130-400) 10^3/uL 212 MPV (8.0-11.0) fL 9.9 Immature Gran % % 0.2 Neutrophils % % 47.6 Lymphocytes % % 40.6 Monocytes % % 10.1 Eosinophils % % 1.1 Basophils % % 0.4 Nucleated RBC % (0.0-0.3) % 0.0 Absolute Neutrophils (1.2-6.7) 10^3/uL 4.26 Absolute Lymphocytes (1.2-3.4) 10^3/uL 3.64 H Absolute Monocytes (0.1-0.8) 10^3/uL 0.91 H Absolute Eosinophils (0.0-0.7) 10^3/uL 0.10 Absolute Basophils (0.0-0.2) 10^3/uL 0.04 Sodium (136-145) mmol/L 142 Potassium (3.5-5.1) mmol/L 4.2 Chloride (98-107) mmol/L 103 Carbon Dioxide (21.0-32.0) mmol/L 28.4 Anion Gap (3-11) mmol/L 10.6 BUN (7-18) mg/dL 27 H Creatinine (0.70-1.30) mg/dL 1.3 Est GFR (CKD-EPI 2020) (mL/min/1.73m2) 70.78 Glucose (74-106) mg/dL 138 H Calcium (8.5-10.1) mg/dL 9.0 Total Bilirubin (0.2-1.0) mg/dL 0.18 L AST (15-37) U/L 12 L ALT (16-63) U/L 21 Alkaline Phosphatase (46-116) U/L 94 Total Protein (6.4-8.2) g/dL 7.2 Albumin (3.4-5.0) g/dL 3.7 Urine Color (Yellow) Yellow Urine Clarity (Clear) Clear Urine pH (5-8) 5.5 Ur Specific [place] (1.005-1.025) 1.020 Urine Protein (Neg-Trace) mg/dL Negative Urine Ketones (Negative) mg/dL Negative Urine Blood (Negative) Moderate H Urine Nitrite (Negative) Negative Urine Bilirubin (Negative) Negative Urine Urobilinogen (Up to 0.2) mg/dL 0.2 Ur Leukocyte Esterase (Negative) Negative Urine RBC (0-2) HPF 20-50 H Urine WBC (0-5) HPF 0-2 Ur Epithelial Cells (Negative) HPF Rare Urine Crystals (Negative) HPF Negative Urine Bacteria (Negative) HPF Negative Urine Casts (Negative) LPF Negative Urine Mucus (Negative) Negative Ur Culture Indicated? No Urine Glucose (Negative) mg/dL Negative Quality:SDOH Health Related Social Needs: No Data to Display PFSH All Active Problems (Updated 06/17/24 @ 04:38 by Winter Fraire MD) Opioid use disorder (Acute) Kidney stone (Chronic) Kidney stone on left side (Acute) Pneumonia (Acute) Ureterolithiasis (Acute) Dental infection (Acute) Medical History (Updated 06/17/24 @ 04:38 by Winter Fraire MD) ADD (attention deficit disorder) Opiate addiction Surgical History No significant past surgical history Social History Smoking/Tobacco Use Status: Current every day Tobacco Type: cigarettes Smoking risk assessment performed?: Yes Alcohol Intake: never Drug use: Never Substance use type: former substance user Do you feel safe at home: Yes Do you feel safe in your relationship?: Yes
[2024-06-17] MEDS: Ketorolac 15 MG/ML VIAL IVP (01:52)
[2024-06-17 01:56] LABS: Abs Immature Grans 0.02 10^3/uL (0.0-0.06); Absolute Basophil Count 0.04 10^3/uL (0.0-0.2); Absolute Lymphocyte Count 3.64 10^3/uL (1.2-3.4); Absolute Monocyte Count 0.91 10^3/uL (0.1-0.8); Absolute Neutrophil Count 4.26 10^3/uL (1.2-6.7); Basophils % 0.4 %; Eosinophils % 1.1 %; HCT 46.3 % (40.0-50.0); Immature Grans % 0.2 %; Lymphocytes % 40.6 %; MCH 29.8 pg (27.0-33.0); MCHC 32.4 % (32.0-36.0); MCV 92 fL (80-95); MPV 9.9 fL (8.0-11.0); Monocytes % 10.1 %; Neutrophils % 47.6 %; Platelet Count 212 10^3/uL (130-400); RBC 5.03 10^6/uL (4.36-5.78); RDW 11.9 % (11.8-14.1); RDW-SD 40.1 fL; WBC 8.97 10^3/uL (4.4-10.8)
[2024-06-17] MEDS: MORPHine 4 MG/ML SYR IVP (01:58)
[2024-06-17] MEDS: Ondansetron 4 MG/2 ML VIAL IVP (01:59)
[2024-06-17] MEDS: Normal Saline 1,000 ML 1000 ML IV (01:59)
[2024-06-17] MEDS: Tamsulosin 0.4 MG CAPCR PO (01:59)
[2024-06-17 02:07] LABS: Bilirubin Negative (Negative); Blood Moderate (Negative); Clarity Clear (Clear); Glucose Negative (Negative); Ketones Negative (Negative); Leukocyte Esterase Negative (Negative); Nitrite Negative (Negative); Urobilinogen 0.2 mg/dL (Up to 0.2); pH 5.5 (5-8)
--- OUTSIDE RECORDS SUMMARY | 2024-06-17 02:10 | XMS_ITS | Encounter Summary ---
Author Organization [facility] Address [address] [place] [address] Care Team Providers Care Machine Strap Buckler Name Role Phone Karen Mas NP Primary Care Provider [phone] Encounter Details Date Type Department Care Team (Latest Contact Info) Description 07/08/2010 0:05 EDT - 07/08/2010 23:[address] [facility] [phone] Unknown, Provider, Discharge Disposition: Home or Self Care Social History Tobacco Use Types Packs/Day Years Used Date Smoking Tobacco: Never Assessed Sex and Gender Information Value Date Recorded Sex Assigned at Not on file Gender Identity Not on file Sexual Orientation Not on file documented as of this encounter Discharge Disposition Disposition Code Departure Means Destination Home or Self Mcfp documented in this encounter Plan of Treatment Not on file documented as of this encounter Procedures Procedure Name Priority Date/Time Associated Diagnosis Comments XR AC JOINTS NEMO [id number] 07/08/2010 1:47 EDT documented in this encounter Results * XR AC JOINTS NEMO [id number] (07/08/2010 1:47 EDT) Anatomical Region Laterality Modality Other 07/08/2010 1:47 EDT 07/08/2010 11:59 EDT Narrative 07/08/2010 11:59 EDT XR AC JOINTS NEMO [id number] ??Jul 08, 2010 01:47:00 AM Signs and Symptoms/Comments: < pain > Comparison: 07/04/2010 Findings: Bilateral AC joint views were obtained both without and with weight-bearing. There is no evidence of AC separation and again there is mild soft tissue prominence noted over both AC joints. Since the previous study, there is no significant change. Impression: Negative AC joint views. Procedure Note 07/08/2010 XR AC JOINTS NEMO [id number] Jul 08, 2010 01:47:00 AM Signs and Symptoms/Comments: < pain > Comparison: 07/04/2010 Findings: Bilateral AC joint views were obtained both without and with weight-bearing. There is no evidence of AC separation and again there is mild soft tissue prominence noted over both AC joints. Since the previous study, there is no significant change. Impression: Negative AC joint views. Watson Joseph MD IMG DIAGNOSTIC IMAGI NG ORDERABLES documented in this encounter Visit Diagnoses Not on filedocumented in this encounter Care Teams Machine Strap Buckler Relationship Specialty Start Date End Date Karen Mas, DOOR FURRING INSTALLER [facility] [address] [place] [address] PCP - General 05/17/10 07/19/10 documented as of this encounter
--- OUTSIDE RECORDS SUMMARY | 2024-06-17 02:10 | XMS_ITS | Encounter Summary ---
Author Organization [facility] Address [facility] [place] [address] Care Team Providers Care Hydropulper Name Role Phone Marko Osorio MD Primary Care Provider [phone] Encounter Details Date Type Department Care Team (Late st Contact Info) Description 01/28/2011 [place] [address] [facility] [address] [place] [address] Social History Tobacco Use Types Packs/Day Years Used Date Smoking Tobacco: Never Assessed Sex and Gender Information Value Date Recorded Sex Assigned at Not on file Gender Identity Not on file Sexual Orientation Not on file documented as of this encounter Plan of Treatment Not on file documented as of this encounter Procedures Procedure Name Priority Date/Time Associated Diagnosis Comments FILM LIBRARY STORAGE ONLY DX SHOULDER Routine 01/28/2011 9:40 AM EDT documented in this encounter Results * FILM LIBRARY- STORAGE ONLY DX SHOULDER (01/28/2011 9:40 AM EDT) Anatomical Region Laterality Modality Other 01/28/2011 9:40 AM EDT Narrative 12/24/2013 11:07 PM EST This is a non-reportable exam. Procedure Note Anish Farmer - 12/24/2013 This is a non-reportable exam. Elvin Schwarz MD IMG FILM LIBRARY ORD ERABLES documented in this encounter Visit Diagnoses Not on filedocumented in this encounter Care Teams Hydropulper Relationship Specialty Start Date End Date Marko Osorio MD [address] [place] [address] PCP - General 03/12/11 documented as of this encounter
--- OUTSIDE RECORDS SUMMARY | 2024-06-17 02:10 | XMS_ITS | Encounter Summary ---
Author Organization [facility] Address [facility] [place] [address] Care Team Providers Care Aircraft Structural Fitter Name Role Phone Marko Osorio MD Primary Care Provider [phone] Encounter Details Date Type Department Care Team (Late st Contact Info) Description 03/12/2011 9:00 AM EDT - 03/12/2011 11:59 PM EDT Hospital Encounter XRay at [address] [place] [address] Social History Tobacco Use Types Packs/Day Years Used Date Smoking Tobacco: Every Day Cigarettes Alcohol Use Standard Drinks/Week Comments Not Asked 0 (1 standard drink = 0.6 oz pur e alcohol) Sex and Gender Information Value Date Recorded Sex Assigned at Not on file Gender Identity Not on file Sexual Orientation Not on file documented as of this encounter Medications at Time of Discharge Medication Sig Dispensed Refills Start Date End Date acetaminophen (TYLENOL EXTRA STRENGTH) 500 mg tablet Take 1,000 mg by mouth every 6 hours as needed. 08/13/2017 ibuprofen (ADVIL;MOTRIN) 200 mg tablet Take 600 mg by mouth every 6 hours as needed. 08/13/2017 documented as of this encounter Plan of Treatment Not on file documented as of this encounter Visit Diagnoses Not on filedocumented in this encounter Care Teams Aircraft Structural Fitter Relationship Specialty Start Date End Date Marko Osorio MD [address] [place] [address] PCP - General 03/12/11 documented as of this encounter
--- OUTSIDE RECORDS SUMMARY | 2024-06-17 02:10 | XMS_ITS | Encounter Summary ---
Author Organization [facility] Address [address] [place] [address] Care Team Providers Care Sieve Maker Name Role Phone Unknown, Provider Primary Care Provider Encounter Details Date Type Department Care Team (Latest Contact Info) Description 12/27/2009 9:45 EST - 12/27/2009 23:59 EST Hospital Encounter [facility] [place] [facility] [phone] Unknown, Provider, Discharge Disposition: Home or Self Care Social History Tobacco Use Types Packs/Day Years Used Date Smoking Tobacco: Never Assessed Sex and Gender Information Value Date Recorded Sex Assigned at Not on file Gender Identity Not on file Sexual Orientation Not on file documented as of this encounter Discharge Disposition Disposition Code Departure Means Destination Home or Self Correction documented in this encounter Plan of Treatment Not on file documented as of this encounter Procedures Procedure Name Priority Date/Time Associated Diagnosis Comments CT HEAD WO CONTRAST [id number] 05/13/2010 0:[address] ABD PELV WO CONTRAST* 12/27/2009 10:46 EST documented in this encounter Results * CT HEAD WO CONTRAST [id number] (05/13/2010 0:02 EDT) Anatomical Region Laterality Modality Other 05/13/2010 0:02 EDT 05/16/2010 11:55 EDT Narrative 05/16/2010 11:[address] HEAD WO CONTRAST [id number] ??May 13, 2010 12:02:00 AM Indication/Comments: EXTERNAL INJURY/TRAUMA HEADACHES FROM TRAUMA THAT HAPPENED AT WORK Additional history obtained from clinician: 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 Prolonged loss of consciousness. Patient continues to have a headache today. Initially presumed to have fainted from dehydration. Comparison: None Technique: Axial images of the head were helically acquired from the foramen magnum to the vertex without administration of intravenous contrast. Findings: There is cranial hemorrhage or extra-axial collections. There is no mass or mass effect. No midline shift. Sulcal gyral pattern and dee-white differentiation are normal. Ventricles are normally sized and positioned. Basilar, suprasellar, quadrigeminal plate and perimesencephalic cisterns are likely patent. The globes and retrobulbar spaces are normal. A left maxillary mucous retention cyst is present. Paranasal sinuses are otherwise unremarkable. No displaced skull fractures are demonstrated. The [place] arterial vessels and venous dural sinuses are somewhat hyperdense, likely related dehydration or plethora. Correlation with complete blood count, BUN and creatinine recommended. Impression: No evidence of traumatic brain injury. Case was reviewed by Dr Ashley with ELIANE HENDERSON at the time of interpretation I have personally reviewed the images and the above interpretation and agree with the findings. 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 Prolonged loss of consciousness. Patient continues to have a headache today. Initially presumed to have fainted from dehydration. Comparison: None Technique: Axial images of the head were helically acquired from the foramen magnum to the vertex without administration of intravenous contrast. Findings: There is cranial hemorrhage or extra-axial collections. There is no mass or mass effect. No midline shift. Sulcal gyral pattern and dee-white differentiation are normal. Ventricles are normally sized and positioned. Basilar, suprasellar, quadrigeminal plate and perimesencephalic cisterns are likely patent. The globes and retrobulbar spaces are normal. A left maxillary mucous retention cyst is present. Paranasal sinuses are otherwise unremarkable. No displaced skull fractures are demonstrated. The [place] arterial vessels and venous dural sinuses are somewhat hyperdense, likely related dehydration or plethora. Correlation with complete blood count, BUN and creatinine recommended. Impression: No evidence of traumatic brain injury. Case was reviewed by Dr Ashley with ELIANE HENDERSON at the time of interpretation I have personally reviewed the images and the above interpretation and agree with the findings. Eliane Henderson MD IMG CT ORDERABLES * CT ABD PELV WO CONTRAST* (12/27/2009 10:46 EST) Anatomical Region Laterality Modality Other 12/27/2009 10:4 6 EST 12/27/2009 17:06 EST Narrative 12/27/2009 17:[address] ABD PELV WO CONTRAST* ??Dec 27, 2009 10:46:00 AM Clinical History/Comments: ABDOMINAL PAIN, R EVANS / FLANK PAIN R/O KIDNEY STONE Comparison: None Technique: Using neither oral nor intravenous contrast material, 3 mm sections were made from just above the kidneys through the urinary bladder. Findings: In the usual lung bases shows no significant findings. The liver, gallbladder, spleen, pancreas and adrenal glands have a normal appearance. The right kidney is slightly larger and more hypodense than the left kidney. There is mild right perinephric stranding with loss of the renal pelvis fat. No significant ureterectasis is seen in the right or left urinary tract. There is a tiny calcification in the region of the right UVJ measuring approximately 1.7 mm which may represent a distal right ureteral calculus. The bladder is decompressed and not well seen. Evaluation of the bowel shows no masses or wall thickening. A normal ileocecal valve, terminal ileum and appendix are identified. There is no abdominal or retroperitoneal lymphadenopathy. No free air or free fluid is seen. The unopacified vasculature has a normal appearance. The anterior abdominal wall is intact. Evaluation of the osseous structures shows no significant abnormality. Impression: 1. Tiny, nonobstructive right UVJ calculus (1.7 mm). Slight loss of the right pararenal fat plane with mildly edematous right kidney, likely related to the distal right ureteral calculus and possible recent passing of a larger calculus. Case was reviewed with WATSON JOSEPH at the time of dictation. I have personally reviewed the images and the above interpretation and agree with the findings. Procedure Note Jj Pereira MD / Jj Pereira MD / Jj Pereira MD - 12/27/2009 CT ABD PELV WO CONTRAST* Dec 27, 2009 10:46:00 AM Clinical History/Comments: ABDOMINAL PAIN, R EVANS / FLANK PAIN R/O KIDNEY STONE Comparison: None Technique: Using neither oral nor intravenous contrast material, 3 mm sections were made from just above the kidneys through the urinary bladder. Findings: In the usual lung bases shows no significant findings. The liver, gallbladder, spleen, pancreas and adrenal glands have a normal appearance. The right kidney is slightly larger and more hypodense than the left kidney. There is mild right perinephric stranding with loss of the renal pelvis fat. No significant ureterectasis is seen in the right or left urinary tract. There is a tiny calcification in the region of the right UVJ measuring approximately 1.7 mm which may represent a distal right ureteral calculus. The bladder is decompressed and not well seen. Evaluation of the bowel shows no masses or wall thickening. A normal ileocecal valve, terminal ileum and appendix are identified. There is no abdominal or retroperitoneal lymphadenopathy. No free air or free fluid is seen. The unopacified vasculature has a normal appearance. The anterior abdominal wall is intact. Evaluation of the osseous structures shows no significant abnormality. Impression: 1. Tiny, nonobstructive right UVJ calculus (1.7 mm). Slight loss of the right pararenal fat plane with mildly edematous right kidney, likely related to the distal right ureteral calculus and possible recent passing of a larger calculus. Case was reviewed with WATSON JOSEPH at the time of dictation. I have personally reviewed the images and the above interpretation and agree with the findings. Watson Joseph MD IMG CT ORDERABLES documented in this encounter Visit Diagnoses Not on filedocumented in this encounter Care Teams Sieve Maker Relationship Specialty Start Date End Date Unknown, Provider, PCP - General 12/27/09 12/29/09 documented as of this encounter
--- OUTSIDE RECORDS SUMMARY | 2024-06-17 02:10 | XMS_ITS | Encounter Summary ---
Author Organization [facility] Address [facility] [place] [address] Care Team Providers Care Scientist Propagator Name Role Phone Marko Osorio MD Primary Care Provider [phone] Reason for Visit * Reason Comments Dental Pain Encounter Details Date Type Department Care Team (Late st Contact Info) Description 04/10/2011 8:47 AM EDT - 04/10/2011 9:43 AM EDT [place] [address] Alok Hagan PA [facility] [place] [address] EMERGENCY DEPT, [facility] [address] Unspecified dental caries Discharge Disposition: Home Social History Tobacco Use Types Packs/Day Years Used Date Smoking Tobacco: Every Day Cigarettes Alcohol Use Standard Drinks/Week Comments Not Asked 0 (1 standard drink = 0.6 oz pur e alcohol) Sex and Gender Information Value Date Recorded Sex Assigned at Not on file Gender Identity Not on file Sexual Orientation Not on file documented as of this encounter Last Filed Vital Signs Vital Sign Reading Time Taken Comments Blood Pressure 137/102 04/10/2011 9:14 AM EDT Pulse 92 04/10/2011 9:34 AM EDT Temperature 36.8 ??C (98.2 ??F) 04/10/2011 9:14 AM ED T Respiratory Rate 16 04/10/2011 9:34 AM EDT Oxygen Saturation 100% 04/10/2011 9:34 AM EDT Inhaled Oxygen Concentration - - Weight - - Height - - Body Mass Index - - documented in this encounter Discharge Instructions * Attachments The following attachments cannot be sent through Care Everywhere. * DENTAL PAIN: AFTER YOUR VISIT (SPANISH) documented in this encounter Medications at Time of Discharge Medication Sig Dispensed Refills Start Date End Date acetaminophen (TYLENOL EXTRA STRENGTH) 500 mg tablet Take 1,000 mg by mouth every 6 hours as needed. 08/13/2017 ibuprofen (ADVIL;MOTRIN) 200 mg tablet Take 600 mg by mouth every 6 hours as needed. 08/13/2017 documented as of this encounter ED Notes * Alok Hagan PA - 04/10/2011 9:44 AM EDT CC: Toothache HPI: Agustin Green is a 30 y.o. male who presents with dental pain which started several days ago. The patient states that the pain is located in the right upper jaw and is described as constant. They have tried using ibuprofen (OTC) without relief. The patient has had similar episodes in the past. Associated symptoms: fever no; difficulty swallowing no; facial swelling yes; difficulty breathing no. PMH: History reviewed. No pertinent past medical history. MEDS: No current facility-administered medications on file. Current outpatient prescriptions:amoxicillin (AMOXIL) 500 mg capsule, Take 1 capsule by mouth 3 times daily for 10 days., Disp: 40 capsule, Rfl: 0; hydroCODone-acetaminophen (VICODIN) 5-500 mg per tablet, Take 1 tablet by mouth every 6 hours as needed for Pain for 10 days. No driving, no alcohol, no extra tylenol, Disp: 10 tablet, Rfl: 0 acetaminophen (TYLENOL EXTRA STRENGTH) 500 mg tablet, Take 1,000 mg by mouth every 6 hours as needed., Disp: , Rfl: ; ibuprofen (ADVIL;MOTRIN) 200 mg tablet, Take 600 mg by mouth every 6 hours as needed., Disp: , Rfl: ALL: No Known Allergies ROS: Pertinent positives and negatives were mentioned in the HPI, all other systems negative. PHYSICAL EXAM: Vitals: BP 137/102 Pulse 92 Temp(Src) 36.8 ??C (98.2 ??F) (Oral) Resp 16 SpO2 100% Gen: Well appearing @GENDER in NAD HEENT: There is no facial swelling on the affected. No trismus. Tenderness noted on percussion of tooth 4 There is swelling noted in the buccal fold on the side of the affected tooth. There is no sublingual swelling. Other notable findings include: + caries, clinically evident caries on 4 . Neck: Supple with no lymphadenopathy Cardiovascular: Regular rhythm without murmurs, rubs, gallops Neuro: Alert and oriented to person, placed and time ED COURSE: Vitals signs and nursing notes reviewed. MEDICAL DECISION MAKING: This was felt to be dental pain secondary to decay and possible early apical abscess. Although jin apical abscess was considered, there was none apparent on exam and thus very unlikely. Deep space infection such as Ludwigs Angina was also felt to be very unlikely as therewas no trismus, facial swelling, or swelling in the sublingual area. ASSESSMENT: Dental decay with Periapical Abscess/Pulpitis PLAN: 1. OTC ibuprofen and/or tylenol prn 2. Amoxicillin 500mg tid x 7d 3. Vicodin #10 4. Follow-up with dentist at next available opportunity 5. Advised to return to the ED sooner for fever greater than 101, new facial swelling, difficulty swallowing, or worsening pain. JAYME Perez 04/10/11 0948 documented in this encounter Miscellaneous Notes * Discharge Summary - Provider, Scanning - 04/11/2011 11:35 AM EDT documented in this encounter Plan of Treatment Not on file documented as of this encounter Visit Diagnoses Diagnosis Unspecified dental caries documented in this encounter Care Teams Scientist Propagator Relationship Specialty Start Date End Date Marko Osorio MD [address] [place] [address] PCP - General 03/12/11 documented as of this encounter
--- OUTSIDE RECORDS SUMMARY | 2024-06-17 02:10 | XMS_ITS | Encounter Summary ---
Author Organization [facility] Address [address] [place] [address] Care Team Providers Care Spot Billing Clerk Name Role Phone Marko Osorio MD Primary Care Provider [phone] Encounter Details Date Type Department Care Team (Late st Contact Info) Description 08/19/2021 Lab Requisition [facility] Pathology & Laboratory Medicine - [address] [address] Outr Resulting Lab, Provider Social History Tobacco Use Types Packs/Day Years Used Date Smoking Tobacco: Never Assessed Sex and Gender Information Value Date Recorded Sex Assigned at Not on file Gender Identity Not on file Sexual Orientation Not on file documented as of this encounter Plan of Treatment Not on file documented as of this encounter Procedures Procedure Name Priority Date/Time Associated Diagnosis Comments ZZCOVID-19 TEST [facility] PCR Today 08/19/2021 9:50 EDT COVID-19 TESTING Routine 08/19/2021 9:50 EDT documented in this encounter Results * COVID-19 TEST [facility] PCR (08/19/2021 9:50 EDT) Swab ENTIRE NASOPHARYNX / Unknown 08/19/2021 9:50 EDT 08/19/2021 22:14 EDT Provider Outr Resulting Lab MICROBIOLOGY - GENERAL ORDERABLES [facility] [address] [place] [address] * COVID-19 TESTING (08/19/2021 9:50 EDT) COVID-19 rt-PCR Result Negative Negative 08/20/2021 13:59 EDT [facility] Comment: This test has not been FDA cleared or approved. This test has been authorized by FDA under an EUA for use by authorized laboratories. This test has been authorized only for detection of nucleic acid from 2019-nCoV, not for any other viruses or pathogens. This test is only authorized for the duration of the declaration that circumstances exist justifying the authorization of emergency use of in vitro diagnostic tests for detection and/or diagnosis of 2019-nCoV under section 564(b)(1) of Act, 21 U.S.C ?? 360bbb-3(b) (1), unless the authorization is terminated or revoked sooner. Negative results do not preclude 2019-nCoV infection and should not be used as the sole basis for treatment or other patient management decisions. Negative results must be combined with clinical observations, patient history, and epidemiological information. Testing was performed using the rosa SARS-CoV-2 assay ([employer] on the Rosa 6800 System Performing Lab [address] [facility] Lab 08/20/2021 13:59 EDT [facility] Swab 08/19/2021 9:50 EDT 08/19/2021 22:14 EDT Provider Outr Resulting Lab MICROBIOLOGY - GENERAL ORDERABLES Performing Organization Address City/State/[facility] Co de Phone Number [facility] [address] [place] [address] documented in this encounter Visit Diagnoses Not on filedocumented in this encounter Care Teams Spot Billing Clerk Relationship Specialty Start Date End Date Marko Osorio MD [address] [place] [address] PCP - General 07/20/10 documented as of this encounter
--- OUTSIDE RECORDS SUMMARY | 2024-06-17 02:10 | XMS_ITS | Encounter Summary ---
Author Organization [facility] Address [facility] [place] [address] Care Team Providers Care Methods Time Analyst Name Role Phone Marko Osorio MD Primary Care Provider [phone] Encounter Details Date Type Department Care Team (Late st Contact Info) Description 01/16/2011 Orders [place] [address] Elvin Schwarz MD [facility] [place] [address] Social History Tobacco Use Types Packs/Day Years [...] Associated Diagnosis Comments FILM LIBRARY STORAGE ONLY MR UPPER EXTREMITY Routine 01/16/2011 9:42 AM EDT documented in this encounter Results * FILM LIBRARY- STORAGE ONLY MR UPPER EXTREMITY (01/16/2011 9:42 AM EDT) Anatomical Region Laterality Modality Other 01/16/2011 9:42 AM EDT Narrative 12/24/2013 11:07 PM EST This is a non-reportable exam. Procedure Note Anish Farmer - 12/24/2013 This is a non-reportable exam. Elvin Schwarz MD IMG FILM LIBRARY ORD ERABLES documented in this encounter Visit Diagnoses Not on filedocumented in this encounter Care Teams Methods Time Analyst Relationship Specialty Start Date End Date Marko Osorio MD [address] [place] [address] PCP - General 03/12/11 documented as of this encounter
--- OUTSIDE RECORDS SUMMARY | 2024-06-17 02:10 | XMS_ITS | Encounter Summary ---
Author Organization [facility] Address [address] [place] [address] Care Team Providers Care Metaphysics Teacher Name Role Phone Marko Osorio MD Primary Care Provider [phone] Encounter Details Date Type Department Care Team (Latest Contact Info) Description 10/18/2010 15:53 EST - 10/18/2010 23:59 EST Hospital Encounter [facility] [phone] Unknown, Provider, Discharge Disposition: Home or Self Care Social History Tobacco Use Types Packs/Day Years Used Date Smoking Tobacco: Never Assessed Sex and Gender Information Value Date Recorded Sex Assigned at Not on file Gender Identity Not on file Sexual Orientation Not on file documented as of this encounter Discharge Disposition Disposition Code Departure Means Destination Home or Self [place] documented in this encounter Plan of Treatment Not on file documented as of this encounter Procedures Procedure Name Priority Date/Time Associated Diagnosis Comments US ABD RUQ 1 ORG [id number] 10/18/2010 16:56 EST documented in this encounter Results * US ABD RUQ 1 ORG [id number] (10/18/2010 16:56 EST) Anatomical Region Laterality Modality Other 10/18/2010 16:5 6 EST 10/19/2010 9:43 EST Narrative 10/19/2010 9:43 EST US ABD RUQ 1 ORG [id number] ??Oct 18, 2010 04:56:00 PM Signs and Symptoms/Comments: ??abdominal pain Comparison: ??CT abdomen/pelvis December 27, 2009 ?? Technique: Static and cine grayscale and Doppler ultrasound images used to evaluate the organs of the right upper quadrant. Findings: ?? Visualized portions of the pancreas are unremarkable. The liver has a normal echotexture and measures 15.9 cm. No focal liver lesions are seen. ??There is no intrahepatic or extrahepatic biliary dilatation. The common bile duct measures 2.7 mm. The gallbladder contains no stones and has a normal wall thickness. There is no pericholecystic fluid. The right kidney measures 10.2 cm and shows no sonographic evidence of hydronephrosis or stone. Visualized portion of the aorta and IVC are normal. Impression: 1. Normal right upper quadrant ultrasound. I have personally reviewed the images and the above interpretation and agree with the findings. Procedure Note Nicely, MD Kvng - 10/19/2010 US ABD RUQ 1 ORG [id number] Oct 18, 2010 04:56:00 PM Signs and Symptoms/Comments: abdominal pain Comparison: CT abdomen/pelvis December 27, 2009 Technique: Static and cine grayscale and Doppler ultrasound images used to evaluate the organs of the right upper quadrant. Findings: Visualized portions of the pancreas are unremarkable. The liver has a normal echotexture and measures 15.9 cm. No focal liver lesions are seen. There is no intrahepatic or extrahepatic biliary dilatation. The common bile duct measures 2.7 mm. The gallbladder contains no stones and has a normal wall thickness. There is no pericholecystic fluid. The right kidney measures 10.2 cm and shows no sonographic evidence of hydronephrosis or stone. Visualized portion of the aorta and IVC are normal. Impression: 1. Normal right upper quadrant ultrasound. I have personally reviewed the images and the above interpretation and agree with the findings. Marko Osorio MD IMG US ORDERABLES documented in this encounter Visit Diagnoses Not on filedocumented in this encounter Care Teams Metaphysics Teacher Relationship Specialty Start Date End Date Marko Osorio MD [address] [place] [address] PCP - General 07/20/10 documented as of this encounter
--- OUTSIDE RECORDS SUMMARY | 2024-06-17 02:10 | XMS_ITS | Encounter Summary ---
Author Organization [facility] Address [facility] [place] [address] Care Team Providers Care Head End Desizing Machine Operator Name Role Phone Marko Osorio MD Primary Care Provider [phone] Reason for Referral * Physical Therapy (Routine) - Complete - Patient Will Schedule External Appt Specialty Diagnoses / Procedures Referred By Mark Anthony andrade Referred To Contact Physical Therapy Diagnoses Chronic pain in right shoulder Elvin Schwarz MD [facility] [place] [address] Referral ID Status Reason Start Date Expiration Date Visits Requested Visits Authorized [id number] Complete - Patient Will Schedule External Appt Evaluate and Treat 03/12/2011 09/08/2011 1 1 Reason for Visit * Reason Comments Right Shoulder Pain DOI 12/2010 Encounter Details Date Type Department Care Team (Late st Contact Info) Description 03/12/2011 9:40 AM EDT Office [place] [address] [facility] [place] [address] Chronic pain in right shoulder (Primary Dx) Discharge Disposition: Home Social History Tobacco Use Types Packs/Day Years Used Date Smoking Tobacco: Every Day Cigarettes Alcohol Use Standard Drinks/Week Comments Not Asked 0 (1 standard drink = 0.6 oz pur e alcohol) Sex and Gender Information Value Date Recorded Sex Assigned at Not on file Gender Identity Not on file Sexual Orientation Not on file documented as of this encounter Progress Notes * Anthony, Marketing Database Coordinator - 03/20/2011 7:41 AM EDT * Elvin Schwarz MD - 03/12/2011 10:35 AM EDT Mr. Green is a 22-year-old young man who presents with a three-month history of RIGHT shoulder pain.He presents a referral from Drs. Osorio and Naseem from [facility] for his persistent shoulder pain due to repetitive motion at work. The patient states that his pain came on graduallyone day when he was lifting a lot of objects repetitively. The pain became very severe in the RIGHTshoulder and he had to go to the [facility] emergency room. X-rays were taken which were apparently unremarkable and he was referred on to Dr. Gladys Gusman obtained an MRI and then referred him on to orthopaedics. He was given a referral to go to physical therapy but apparently did not attend any sessions. He also was seen by his primary care provider Dr. Marko Osorio has been working with him with regards to his return to work status. 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 Past medical history is significant for no prior medical problems or surgeries. Shoulder examination is positive for multiple findings including trigger points throughout. He has tenderness along his entire superior trapezial region as well as along the posterior shoulder and anterior shoulder. He has areas of tenderness along the lateral margin of the acromion and down the lateral arm but areas of tenderness stop about the midportion of the upper arm. All arcs of motion areuncomfortable on abduction seems to be the most uncomfortable for him. I can passively elevate his arm up to approximately 160?? and forward flexes similar mild but he does have significant discomfort through the entire arc. His strength is weak to resistance through all arcs but this seems to be limited only by pain. Neurovascularly he is intact distally Radiographs brought with the patient are unremarkable. MRI also brought with the patient does show some signal change within the supraspinatus tendon but no evidence of partial-thickness or full-thickness tearing. The remainder of the exam is unremarkable to my review. Assessment and plan: Chronic RIGHT shoulder pain of unclear etiology. Patient does have several elements of fibromyalgia as he has several areas of trigger points around the shoulder. I think the only option open at this point is to try to get him to go to some physical therapy sessions for local modalities including phonophoresis, iontophoresis, after sound, and deep friction massage. We'll alsowork on range of motion since I think he is developing a mild adhesive capsulitis. The patient would like to follow up closer to home so I have sent his note to Dr. Osorio. I will be seeing him back at [facility] for her shoulder on an as-needed basis. Subjective: Patient ID: Agustin Green is a 30 y.o. male. HPI ROS Objective: Physical Exam Ortho Exam Neurologic Exam Assessment and Plan: No problem-specific visit notes found for this encounter. documented in this encounter Procedure Notes * Provider, Scanning - 03/15/2011 2:29 PM EDTAssociated Order(s): SCAN DOC: DIAGNOSTIC RADIOLOGY * Provider, Scanning - 03/15/2011 2:29 PM EDTAssociated Order(s): SCAN DOC: MRI/MRA * Provider, Scanning - 03/15/2011 2:29 PM EDTAssociated Order(s): SCAN DOC: DIAGNOSTIC RADIOLOGY documented in this encounter Miscellaneous Notes * Miscellaneous - Anthony, Marketing Database Coordinator - 03/26/2011 4:06 PM EDT * Miscellaneous - Anthony, Marketing Database Coordinator - 03/20/2011 7:41 AM EDT documented in this encounter Plan of Treatment Scheduled Referrals Name Type Priority Associated Diagnoses Orde r Schedule REFERRAL TO PHYSICAL THERAPY Outpatient Referral Routine Chronic pain in right shoulder Ordered: 03/12/2011 documented as of this encounter Procedures Procedure Name Priority Date/Time Associated Diagnosis Comments MRI/MRA SCAN 03/15/2011 2:29 PM EDT DIAGNOSTIC RADIOLOGY SCAN 03/15/2011 2:29 PM EDT DIAGNOSTIC RADIOLOGY SCAN 03/15/2011 2:29 PM EDT documented in this encounter Results * SCAN DOC: DIAGNOSTIC RADIOLOGY (03/15/2011 2:29 PM EDT) Anatomical Region Laterality Modality Other Narrative 03/20/2011 7:41 AM EDT Procedure Note Provider, Scanning - 03/15/2011 2:29 PM EDT Scanning Provider MEDIA MGR SCAN EXT O RDR/RSLT * SCAN DOC: MRI/MRA (03/15/2011 2:29 PM EDT) Anatomical Region Laterality Modality Other Narrative 03/20/2011 7:41 AM EDT Procedure Note Provider, Scanning - 03/15/2011 2:29 PM EDT Scanning Provider MEDIA MGR SCAN EXT O RDR/RSLT * SCAN DOC: DIAGNOSTIC RADIOLOGY (03/15/2011 2:29 PM EDT) Anatomical Region Laterality Modality Other Narrative 03/20/2011 7:41 AM EDT Procedure Note Provider, Scanning - 03/15/2011 2:29 PM EDT Scanning Provider MEDIA MGR SCAN EXT O RDR/RSLT documented in this encounter Visit Diagnoses Diagnosis Chronic pain in right shoulder- Primary Pain in joint, shoulder region documented in this encounter Care Teams Head End Desizing Machine Operator Relationship Specialty Start Date End Date Marko Osorio MD [address] [place] [address] PCP - General 03/12/11 documented as of this encounter
--- OUTSIDE RECORDS SUMMARY | 2024-06-17 02:10 | XMS_ITS | Encounter Summary ---
Author Organization [facility] [place] [address] Care Team Providers Care Prosthetic Dentist Name Role Phone Marko Osorio MD Primary Care Provider Reason for Visit * Reason Comments Dental Pain Encounter Details Date Type Department Care Team (Late st Contact Info) Description 04/15/2017 1:18 PM EDT - 04/15/2017 2:04 PM EDT Emergency [place] [id number] Dental abscess; Dental caries; Acute pulpitis Discharge Disposition: Home Social History Tobacco Use [...] Sign Reading Time Taken Comments Blood Pressure 160/74 04/15/2017 1:16 PM EDT Pulse 93 04/15/2017 1:16 PM EDT Temperature 36.4 ??C (97.5 ??F) 04/15/2017 1:16 PM ED T Respiratory Rate 16 04/15/2017 1:16 PM EDT Oxygen Saturation 98% 04/15/2017 1:16 PM EDT Inhaled Oxygen Concentration - - Weight - - Height - - Body Mass Index - - documented in this encounter Discharge Instructions * Discharge Instructions* Chel Boogie PA - 04/15/2017 1:54 PM EDT Images from the original note were not included. [facility] Abscessed Tooth: Care Instructions Your Care Instructions An abscessed tooth is a tooth that has a pocket of pus in the tissues around it. Pus forms when thebody tries to fight an infection caused by bacteria. If the pus cannot drain, it forms an abscess. An abscessed tooth can cause red, swollen gums and throbbing pain, especially when you chew. You mayhave a bad taste in your mouth and a fever, and your jaw may swell. Damage to the tooth, untreated tooth decay, or gum disease can cause an abscessed tooth. An abscessed tooth needs to be treated by a dental professional right away. If it is not treated, the infection could spread to other parts of your body. Your dentist will give you antibiotics to stop the infection. He or she may make a hole in the tooth or cut open (oscar) the abscess inside your mouth so that the infection can drain, which should relieve your pain. You may need to have a root canal treatment, which tries to save your tooth by taking out the infected pulp and replacing it witha healing medicine and/or a filling. If these treatments do not work, your tooth may have to be removed. Follow-up care is a hooper part of your treatment and safety. Be sure to make and go to all appointments, and call your doctor if you are having problems. It's also a good idea to know your test resultsand keep a list of the medicines you take. How can you care for yourself at home? ?? Reduce pain and swelling in your face and jaw by putting ice or a cold pack on the outside of your cheek for 10 to 20 minutes at a time. Put a thin cloth between the ice and your skin. ?? Take pain medicines exactly as directed. ?? If the doctor gave you a prescription medicine for pain, take it as prescribed. ?? If you are not taking a prescription pain medicine, ask your doctor if you can take an kgut-zaz-dytvaco medicine. ?? Take your antibiotics as directed. Do not stop taking them just because you feel better. You need to take the full course of antibiotics. To prevent tooth abscess ?? Wadley and floss every day, and have regular dental checkups. ?? Eat a healthy diet, and avoid sugary foods and drinks. ?? Do not smoke or use spit tobacco. Tobacco use slows your ability to heal. It also increases yourrisk for gum disease and cancer of the mouth and throat. If you need help quitting, talk to your doctor about stop-smoking programs and medicines. These can increase your chances of quitting for good. When should you call for help? Call 911 anytime you think you may need emergency care. For example, call if: ?? You have trouble breathing. Call your doctor now or seek immediate medical care if: ?? You are dizzy or lightheaded, or you feel like you may faint. ?? You have a new or higher fever. ?? You have swelling, redness, or pain that spreads or gets worse. ?? You have pus coming from the tooth area. ?? You have an earache or pain behind your ear. ?? You have a fever with a stiff neck or a severe headache. ?? You are sensitive to light or feel very sleepy or confused. Watch closely for changes in your health, and be sure to contact your doctor if: ?? You do not get better as expected. Where can you learn more? Visit our health information library at [email or web address] You can also view health information on [employer], your personal patient account. Log in or sign up today. Enter L466 in the search box to learn more about Abscessed Tooth: Care Instructions. ?? [id number] [employer], [employer]. Care instructions adapted under license by [facility]. This care instruction is for use with your licensed healthcare professional. If you have questions about a medical condition or this instruction, always ask your healthcare professional. [employer] disclaims any warranty or liability for your use of this information. Content Version: 11.0.525311; Current as of: September 23, 2015 * Attachments The following attachments cannot be sent through Care Everywhere. * TOOTH AND GUM PAIN (AFGHAN) documented in this encounter Medications at Time of Discharge Medication Sig Dispensed Refills Start Date End Date penicillin v potassium (VEETID) 500 mg Tablet Take 1 tablet by mouth 2 times daily for 10 days. 20 tablet 04/15/2017 04/25/2017 acetaminophen (TYLENOL EXTRA STRENGTH) 500 mg tablet Take 1,000 mg by mouth every 6 hours as needed. 08/13/2017 ibuprofen (ADVIL;MOTRIN) 200 mg tablet Take 600 mg by mouth every 6 hours as needed. 08/13/2017 documented as of this encounter ED Notes * Chel Boogie PA - 04/15/2017 1:48 PM EDT CC: Toothache HPI: Agustin Green is a 36 y.o. male who presents with dental pain which started 2 weeks ago. The patient states that the pain is located in the left lower jaw and is described as constant. They have tried using topical pain relievers, tylenol, ibuprofen, draining the abscess by repeatedly puncturinggum with his pocket knife; no relief. Patient is here with his and child who is currently being evaluated in the hospital and he wanted to have his mouth evaluated. He states he has an appointment in 2 weeks with an oral surgeon to have his teeth evaluated. He was not able to obtain a sooner dental appointment. No recent antibiotics. Current daily tobacco smoker. Denies fever or chills, nausea or vomiting, dysphagia, shortness of breath, immunocompromising conditions. Unsure of last tetanus. PMH: History reviewed. No pertinent past medical history. MEDS: No current facility-administered medications for this encounter. Current Outpatient Prescriptions: ??? acetaminophen (TYLENOL EXTRA STRENGTH) 500 mg tablet, Take 1,000 mg by mouth every 6 hours as needed., Disp: , Rfl: ??? ibuprofen (ADVIL;MOTRIN) 200 mg tablet, Take 600 mg by mouth every 6 hours as needed., Disp: , Rfl: ALL: Allergies Allergen Reactions ??? Hymenoptera Allergenic Extract ROS: Pertinent positives and negatives were mentioned in the HPI, all other systems negative. PHYSICAL EXAM: Vitals: BP 160/74 Pulse 93 Temp 36.4 ??C (97.5 ??F) (Oral) Resp 16 SpO2 98% Gen: Well appearing male in NAD HEENT: There is no facial swelling on the affected. No trismus. Tenderness noted on percussion of tooth #17, multiple missing teeth, no upper teeth bilaterally. There is not swelling noted in the buccal fold on the side of the affected tooth. There is no sublingual swelling. Other notable findings include: + caries, clinically evident caries on multiple teeth fair oral hygiene. Neck: Supple with no lymphadenopathy Cardiovascular: Regular rhythm without murmurs, rubs, gallops Neuro: Alert and oriented to person, placed and time ED COURSE: Vitals signs and nursing notes reviewed. The patient was offered local nerve block; declined. MEDICAL DECISION MAKING: This was felt to be dental pain secondary to decay and possible early apical abscess. Although jin apical abscess was considered, there was none apparent on exam and thus very unlikely. Deep space infection such as Ludwigs Angina was also felt to be very unlikely as therewas no trismus, facial swelling, or swelling in the sublingual area. No evidence of airway compromise, cellulitis or evident abscess. I recommended Tdap due to patients self report of draining abscess with his own pocket knife and this is out of date, he declined this. ASSESSMENT: Dental decay with Periapical Abscess/Pulpitis PLAN: 1. OTC ibuprofen and/or tylenol prn 2. PenVK 500mg BID x 10 days 3. Tdap recommended: pt declined 4. Follow-up with dentist at next available opportunity 5. Advised to return to the ED sooner for fever greater than 101, new facial swelling, difficulty swallowing, or worsening pain. Chel Boogie PA 04/15/17 1457 documented in this encounter Miscellaneous Notes * ED Triage - Massiel Santillan RN - 04/15/2017 1:14 PM EDT 36 yo M in via triage with X3 weeks of dental pain on the L side of his mouth. Reports that he hasabscesses on 3-4 of my teeth. I need some antibiotics. Pt denies any other issues. Able to talk infull sentences, respirations even and unlabored. Skin PWD. documented in this encounter Plan of Treatment Not on file documented as of this encounter Visit Diagnoses Diagnosis Dental abscess Periapical abscess without sinus Dental caries Unspecified dental caries Acute pulpitis Pulpitis documented in this encounter Active and Recently Administered Medications Care Teams Prosthetic Dentist Relationship Specialty Start Date End Date Marko Osorio MD [address] [place] [address] PCP - General 03/12/11 documented as of this encounter
--- OUTSIDE RECORDS SUMMARY | 2024-06-17 02:10 | XMS_ITS | Encounter Summary ---
Author Organization [facility] Address [facility] [place] [address] Care Team Providers Care Apartment Leasing Manager Name Role Phone Marko Osorio MD Primary Care Provider [phone] Reason for Visit * Reason Comments Dental Pain Encounter Details Date Type Department Care Team (Late st Contact Info) Description 04/17/2011 8:47 AM EDT - 04/17/2011 10:51 AM EDT [place] [address] Royer Rodney PA [facility] [place] [address] Hector Palma MD [facility] [place] [address] Pain, dental; Pupil irregularity Discharge Disposition: Home Social History Tobacco Use [...] Sign Reading Time Taken Comments Blood Pressure 134/72 04/17/2011 10:47 AM EDT Pulse 72 04/17/2011 10:47 AM EDT Temperature 36.7 ??C (98.1 ??F) 04/17/2011 10:47 AM E DT Respiratory Rate 16 04/17/2011 10:47 AM EDT Oxygen Saturation 100% 04/17/2011 9:01 AM EDT Inhaled Oxygen Concentration - - Weight 66.7 kg (147 lb) 04/17/2011 9:01 AM EDT Height - - Body Mass Index - - documented in this encounter Discharge Instructions * Discharge Instructions* Royer Rodney PA - 04/17/2011 10:31 AM EDT Return to ED if eye pain not better when tooth is better, vision changes or pupil getting larger. * Attachments The following attachments cannot be sent through Care Everywhere. * DENTAL PAIN: AFTER YOUR VISIT ([place]) documented in this encounter Medications at Time of Discharge Medication Sig Dispensed Refills Start Date End Date hydroCODone-acetaminoph en (VICODIN) 5-500 mg per tablet Take 1 tablet by mouth every 6 hours as needed for Pain for 10 days. No [address], no alcohol, no extra tylenol 20 tablet 0 04/17/2011 04/27/2011 amoxicillin (AMOXIL) 500 mg capsule Take 1 capsule by mouth 3 times daily for 10 days. 40 capsule 0 04/10/2011 04/20/2011 hydroCODone-acetaminoph en (VICODIN) 5-500 mg per tablet Take 1 tablet by mouth every 6 hours as needed for Pain for 10 days. No driving, no alcohol, no extra tylenol 10 tablet 0 04/10/2011 04/20/2011 acetaminophen (TYLENOL EXTRA STRENGTH) 500 mg tablet Take 1,000 mg by mouth every 6 hours as needed. 08/13/2017 ibuprofen (ADVIL;MOTRIN) 200 mg tablet Take 600 mg by mouth every 6 hours as needed. 08/13/2017 documented as of this encounter ED Notes * Royer Rodney PA - 04/17/2011 11:16 AM EDT Images from the original note were not included. Chief Complaint Patient presents with ??? Dental Pain Patient is a 30 y.o. male presenting with tooth pain. The history is provided by the patient. Dental PainThe primary symptoms include mouth pain and headaches (Pt states L eye throbbing for 2 days. No visual C/O. Mild photophobia.). Primary symptoms do not include dental injury, oral bleeding, fever or sore throat. The symptoms began more than 1 week ago. The symptoms are recurrent. The headache is associated with photophobia and eye pain. Additional symptoms include: jaw pain. Additional symptoms do not include: trismus, facial swellingand drooling. Scheduled Meds: PRN Meds: Allergies Allergen Reactions ??? Hymenoptera Allergenic Extract Review of Systems Constitutional: Negative for fever. HENT: Negative for sore throat, facial swelling and drooling. Eyes: Positive for photophobia and pain. Negative for discharge, redness, itching and visual disturbance. Neurological: Positive for headaches (Pt states L eye throbbing for 2 days. No visual C/O. Mild photophobia.). Physical Exam HENT: Head: Head is without right periorbital erythema (No facial swelling or significant pain.) and without left periorbital erythema. No trismus in the jaw. Mouth/Throat: No dental abscesses or uvula swelling. Eyes: Conjunctivae are normal. Right eye exhibits no exudate. No foreign body present in the right eye. Left eye exhibits no exudate. No foreign body present in the left eye. Pupils are unequal (L pupil 2mm larger then L , less difference in light.). Fundoscopic exam: The right eye shows no arteriolar narrowing, no right eye AV nicking and no papilledema. The left eye shows no arteriolar narrowing, no left eye AV nicking and no papilledema. Pt. Examined with Dr. Walton. Pt not aware of any pupil changes in past history. We examined a photo ID from [facility]. And red reflex in picture was larger on L then R. We thought difference was physiologic. Procedures MDM Dental pain, Anisocoria. ED Course: JAYME Colin 04/17/11 1130 documented in this encounter Miscellaneous Notes * Discharge Summary - Paola Simmons - 04/18/2011 1:39 PM EDT * ED Triage - Sherri Sanchez RN - 04/17/2011 8:59 AM EDT Pt reports dental pain x 2 weeks. Treated in the ED 1 week ago with Amoxicillin and pain meds. He is still taking the ABX but has no more pain meds. He feels that the pain is worse and is having no relief with Tylenol and Ibuprofen. documented in this encounter Plan of Treatment Not on file documented as of this encounter Visit Diagnoses Diagnosis Pain, dental Unspecified disorder of the teeth and supporting structures Pupil irregularity Pupillary abnormalities documented in this encounter Care Teams Apartment Leasing Manager Relationship Specialty Start Date End Date Marko Osorio MD [address] [place] [address] PCP - General 03/12/11 documented as of this encounter
--- OUTSIDE RECORDS SUMMARY | 2024-06-17 02:10 | XMS_ITS | Encounter Summary ---
Author Organization [facility] Address [address] [place] [address] Care Team Providers Care Balance Wheel Arm Burnisher Name Role Phone Unknown, Provider Primary Care Provider [phone] Encounter Details Date Type Department Care Team (Latest Contact Info) Description 05/13/2010 23:35 EDT - 05/13/2010 23:59 EDT Hospital Encounter [facility] [phone] Unknown, Provider, Discharge Disposition: Home or Self Care Social History Tobacco Use Types Packs/Day Years Used Date Smoking Tobacco: Never Assessed Sex and Gender Information Value Date Recorded Sex Assigned at Not on file Gender Identity Not on file Sexual Orientation Not on file documented as of this encounter Discharge Disposition Disposition Code Departure Means Destination Home or Self Long-Term documented in this encounter Plan of Treatment Not on file documented as of this encounter Visit Diagnoses Not on filedocumented in this encounter Care Teams Balance Wheel Arm Burnisher Relationship Specialty Start Date End Date Unknown, Provider, PCP - General 12/30/09 05/16/10 documented as of this encounter
--- OUTSIDE RECORDS SUMMARY | 2024-06-17 02:10 | XMS_ITS | Clinical Summary ---
Author Organization [facility] Address [facility] [place] [address] Care Team Providers Care Tobacco Farmworker Name Role Phone Marko Osorio MD Primary Care Provider [phone] Allergies Active Allergy Reactions Criticality Noted Date Comments Hymenoptera Allergenic Extract 04/17 Medications Medication Sig Dispensed Refills Start Date End Date Status diphenhydrAMINE-aceta minophen (TYLENOL PM) 25-500 mg Tablet Take 1 tablet by mouth nightly. 14 each 08/13/2017 Active ibuprofen (Advil) 800 mg tablet Take 1 tablet by mouth every 8 hours as needed for Pain. 30 tablet 01/25/2023 Active Active Problems Problem Noted Date Diagnosed Date Chronic pain in right shoulder 03/12/2011 Social History Tobacco Use Types Packs/Day Years Used Date Smoking Tobacco: Every Day Cigarettes Alcohol Use Standard Drinks/Week Comments Not Asked 0 (1 standard drink = 0.6 oz pur e alcohol) [facility] Inpatient Questions Answer Date Recorded Does Anyone Try to Keep You From Having Contact with Others or Doing Things Outside Your Home? no 01/25/2023 Feels Threatened by Someone no 01/03 Feels Unsafe at Home or Work/School no 01/25/2023 Physical Signs of Abuse Present no 01/25/2023 Sex and Gender Information Value Date Recorded Sex Assigned at Not on file Gender Identity Not on file Sexual Orientation Not on file Last Filed Vital Signs Vital Sign Reading Time Taken Comments Blood Pressure 98/85 01/25/2023 12:04 PM EDT Pulse 96 01/25/2023 12:03 PM EDT Temperature 36.6 ??C (97.8 ??F) 01/25/2023 12:03 PM E DT Respiratory Rate 16 01/25/2023 12:03 PM EDT Oxygen Saturation 96% 01/25/2023 12:03 PM EDT Inhaled Oxygen Concentration - - Weight 90.7 kg (200 lb) 01/25/2023 12:03 PM EDT Height 177.8 cm (5' 10) 08/13/2017 3:09 PM EDT Body Mass Index 28.7 08/13/2017 3:09 PM EDT Plan of Treatment Health Maintenance Due Date Last Done Comments Pneumococcal Vaccine: At-Risk 5-64yrs (1 of 2 - PCV) 0 1988 HIV screen 2000 Hepatitis C Screening 2000 Lipid Screening 2000 Hepatitis B vaccine (0-59 yrs) (1) 2001 Tdap adult 2001 Tetanus vaccine 2001 Diabetes Screening (HgbA1C or Glucose) 2022 Covid-19 Vaccine (1 - season) 2023 Influenza (Flu) vaccine (1 o f 1 - Influenza standard series) 07/05/2024 Care Teams Tobacco Farmworker Relationship Specialty Start Date End Date Marko Osorio MD [address] [place] [address] PCP - General 03/12/11
--- OUTSIDE RECORDS SUMMARY | 2024-06-17 02:10 | XMS_ITS | Encounter Summary ---
Author Organization [facility] Address [address] [place] [address] Care Team Providers Care Retort Furnace Operator Name Role Phone Marko sOorio MD Primary Care Provider [phone] Encounter Details Date Type Department Care Team (Latest Contact Info) Description 10/16/2010 20:30 EST - 10/16/2010 23:59 EST Hospital Encounter [facility] [place] [phone] Unknown, Provider, Discharge Disposition: Home or Self Care Social History Tobacco Use Types Packs/Day Years Used Date Smoking Tobacco: Never Assessed Sex and Gender Information Value Date Recorded Sex Assigned at Not on file Gender Identity Not on file Sexual Orientation Not on file documented as of this encounter Discharge Disposition Disposition Code Departure Means Destination Home or Self Fpc documented in this encounter Plan of Treatment Not on file documented as of this encounter Procedures Procedure Name Priority Date/Time Associated Diagnosis Comments XR CHEST 2V [id number] 10/16/2010 20: 54 EST documented in this encounter Results * XR CHEST 2V [id number] (10/16/2010 20:54 EST) Anatomical Region Laterality Modality Other 10/16/2010 20:5 4 EST 10/16/2010 20:59 EST Narrative 10/16/2010 20:59 EST XR CHEST 2V [id number] ??Oct 16, 2010 08:54:00 PM Signs and Symptoms/Comments: ??COUGH Findings: Bones and soft tissues are unremarkable. The heart is normal in size. The lungs are clear. There are no mediastinal or hilar abnormalities seen. Pleural surfaces are normal. Impression: Normal frontal and lateral chest radiographs. Procedure Note 10/16/2010 XR CHEST 2V [id number] Oct 16, 2010 08:54:00 PM Signs and Symptoms/Comments: COUGH Findings: Bones and soft tissues are unremarkable. The heart is normal in size. The lungs are clear. There are no mediastinal or hilar abnormalities seen. Pleural surfaces are normal. Impression: Normal frontal and lateral chest radiographs. Anupam Mcgarry MD IMG DIAGNOSTIC IMAGI NG ORDERABLES documented in this encounter Visit Diagnoses Not on filedocumented in this encounter Care Teams Retort Furnace Operator Relationship Specialty Start Date End Date Marko Osorio MD [address] [place] [address] PCP - General 07/20/10 documented as of this encounter
--- OUTSIDE RECORDS SUMMARY | 2024-06-17 02:10 | XMS_ITS | Encounter Summary ---
Author Organization [facility] Address [address] [place] [address] Care Team Providers Care Hoop Driving Machine Operator Helper Name Role Phone Karen Mas NP Primary Care Provider [phone] Encounter Details Date Type Department Care Team (Latest Contact Info) Description 07/04/2010 20:53 EDT - 07/04/2010 23:59 EDT Hospital Encounter [facility] [phone] Unknown, Provider, Discharge Disposition: Home or Self Care Social History Tobacco Use Types Packs/Day Years Used Date Smoking Tobacco: Never Assessed Sex and Gender Information Value Date Recorded Sex Assigned at Not on file Gender Identity Not on file Sexual Orientation Not on file documented as of this encounter Discharge Disposition Disposition Code Departure Means Destination Home or Self Custodial documented in this encounter Plan of Treatment Not on file documented as of this encounter Procedures Procedure Name Priority Date/Time Associated Diagnosis Comments XR AC JOINTS NEMO [id number] 07/05/2010 13:33 EDT documented in this encounter Results * XR AC JOINTS NEMO [id number] (07/05/2010 13:33 EDT) Anatomical Region Laterality Modality Other 07/05/2010 13:3 3 EDT 07/07/2010 9:47 EDT Narrative 07/07/2010 9:47 EDT XR AC JOINTS NEMO [id number] ??Jul 05, 2010 01:33:00 PM Clinical History/Comments: pain Comparison: None available. Findings: Bilateral AC joints were performed with and without weights. The AC joint intervals do not change with weights. Mild soft tissue prominence is noted over both AC joints. I do not see evidence of clavicle fracture. Procedure Note 07/07/2010 XR AC JOINTS NEMO [id number] Jul 05, 2010 01:33:00 PM Clinical History/Comments: pain Comparison: None available. Findings: Bilateral AC joints were performed with and without weights. The AC joint intervals do not change with weights. Mild soft tissue prominence is noted over both AC joints. I do not see evidence of clavicle fracture. Edmund Michael MD IMG DIAGNOSTIC IMAGI NG ORDERABLES documented in this encounter Visit Diagnoses Not on filedocumented in this encounter Care Teams Hoop Driving Machine Operator Helper Relationship Specialty Start Date End Date Karen Mas, INSPECTOR PACKAGER [facility] [address] [place] [address] PCP - General 05/17/10 07/19/10 documented as of this encounter
--- OUTSIDE RECORDS SUMMARY | 2024-06-17 02:10 | XMS_ITS | Clinical Summary ---
Author Organization [facility] Address [address] [place] [address] Care Team Providers Care Residential Building Inspector Name Role Phone Marko Osorio MD Primary Care Provider [phone] Social History Tobacco Use Types Packs/Day Years Used Date Smoking Tobacco: Never Assessed Sex and Gender Information Value Date Recorded Sex Assigned at Not on file Gender Identity Not on file Sexual Orientation Not on file Plan of Treatment Health Maintenance Due Date Last Done Comments Hepatitis C Screen 1982 Hepatitis B Vaccine (1 of 3 - 19+ 3-dose series) 07/09 COVID-19 Vaccine ( season) 2023 Care Teams Residential Building Inspector Relationship Specialty Start Date End Date Marko Osorio MD [address] [place] [address] PCP - General 07/20/10
--- OUTSIDE RECORDS SUMMARY | 2024-06-17 02:10 | XMS_ITS | Encounter Summary ---
Author Organization [facility] Address [facility] [place] [address] Care Team Providers Care Lining Closer Name Role Phone Marko Osorio MD Primary Care Provider [phone] Encounter Details Date Type Department Care Team (Late st Contact Info) Description 07/04/2010 [place] [address] Elvin Schwarz MD [facility] [address] [place] [address] Social History Tobacco Use Types Packs/Day Years [...] FILM LIBRARY STORAGE ONLY DX SHOULDER Routine 07/04/2010 9:53 AM EDT documented in this encounter Results * FILM LIBRARY- STORAGE ONLY DX SHOULDER (07/04/2010 9:53 AM EDT) Anatomical Region Laterality Modality Other 07/04/2010 9:53 AM EDT Narrative 12/24/2013 11:07 PM EST This is a non-reportable exam. Procedure Note Anish Farmer - 12/24/2013 This is a non-reportable exam. Elvin Schwarz MD IMG FILM LIBRARY ORD ERABLES documented in this encounter Visit Diagnoses Not on filedocumented in this encounter Care Teams Lining Closer Relationship Specialty Start Date End Date Marko Osorio MD [address] [place] [address] PCP - General 03/12/11 documented as of this encounter
--- OUTSIDE RECORDS SUMMARY | 2024-06-17 02:10 | XMS_ITS | Encounter Summary ---
Author Organization [facility] Address [facility] [place] [address] Care Team Providers Care Chute Tender Name Role Phone Marko Osorio MD Primary Care Provider [phone] Encounter Details Date Type Department Care Team (Late st Contact Info) Description 01/08/2011 Orders [place] [address] Elvin Schwarz MD [facility] [place] [address] Social History Tobacco Use Types Packs/Day Years [...] FILM LIBRARY STORAGE ONLY DX SHOULDER Routine 01/08/2011 9:48 AM EST documented in this encounter Results * FILM LIBRARY- STORAGE ONLY DX SHOULDER (01/08/2011 9:48 AM EST) Anatomical Region Laterality Modality Other 01/08/2011 9:48 AM EST Narrative 12/24/2013 11:07 PM EST This is a non-reportable exam. Procedure Note Anish Farmer - 12/24/2013 This is a non-reportable exam. Elvin Schwarz MD IMG FILM LIBRARY ORD ERABLES documented in this encounter Visit Diagnoses Not on filedocumented in this encounter Care Teams Chute Tender Relationship Specialty Start Date End Date Marko Osorio MD [address] [place] [address] PCP - General 03/12/11 documented as of this encounter
--- OUTSIDE RECORDS SUMMARY | 2024-06-17 02:10 | XMS_ITS | Encounter Summary ---
Author Organization [facility] Address [facility] [place] [address] Care Team Providers Care Cigarette And Filter Chief Inspector Name Role Phone Marko Osorio MD Primary Care Provider [phone] Encounter Details Date Type Department Care Team (Late st Contact Info) Description 07/08/2010 [place] [address] Elvin Schwarz MD [facility] [place] [address] Social History Tobacco Use Types Packs/Day Years [...] FILM LIBRARY STORAGE ONLY DX SHOULDER Routine 07/08/2010 9:50 AM EDT documented in this encounter Results * FILM LIBRARY- STORAGE ONLY DX SHOULDER (07/08/2010 9:50 AM EDT) Anatomical Region Laterality Modality Other 07/08/2010 9:50 AM EDT Narrative 12/24/2013 11:07 PM EST This is a non-reportable exam. Procedure Note Anish Farmer - 12/24/2013 This is a non-reportable exam. Elvin Schwarz MD IMG FILM LIBRARY ORD ERABLES documented in this encounter Visit Diagnoses Not on filedocumented in this encounter Care Teams Cigarette And Filter Chief Inspector Relationship Specialty Start Date End Date Marko Osorio MD [address] [place] [address] PCP - General 03/12/11 documented as of this encounter
--- OUTSIDE RECORDS SUMMARY | 2024-06-17 02:10 | XMS_ITS | Referral Summary ---
Author Organization [facility] Address [address] [place] [address] Care Team Providers Care Hand Plate Stacker Name Role Phone Marko Osorio MD Primary Care Provider [phone] Social History Tobacco Use Types Packs/Day Years Used Date Smoking Tobacco: Never Assessed Sex and Gender Information Value Date Recorded Sex Assigned at Not on file Gender Identity Not on file Sexual Orientation Not on file Plan of Treatment Not on file Care Teams Hand Plate Stacker Relationship Specialty Start Date End Date Marko Osorio MD [address] [place] [address] PCP - General 07/20/10
--- OUTSIDE RECORDS SUMMARY | 2024-06-17 02:10 | XMS_ITS | Encounter Summary ---
Author Organization [facility] Address [facility] [place] [address] Care Team Providers Care Molder Floor Name Role Phone Marko Osorio MD Primary Care Provider [phone] Reason for Visit * Reason Comments Dental Pain Encounter Details Date Type Department Care Team (Late st Contact Info) Description 01/25/2023 12:08 PM EDT - 01/25/2023 1:27 PM EDT Emergency [place] [address] Alok Deal MD [facility] [place] [address] Dental infection Discharge Disposition: Home Social History Tobacco Use Types Packs/Day Years Used Date Smoking Tobacco: Every Day Cigarettes Alcohol Use Standard Drinks/Week Comments Not Asked 0 (1 standard drink = 0.6 oz pur e alcohol) IPV Inpatient Questions Answer Date Recorded Does Anyone [...] (200 lb) 01/25/2023 12:03 PM EDT Height - - Body Mass Index 28.7 08/13/2017 3:09 PM EDT documented in this encounter Discharge Instructions * Discharge Instructions* Alok Deal MD - 01/25/2023 12:41 PM EDT Please follow up with a dentist. Return for any worsening. Take meds as prescribed. * Attachments The following attachments cannot be sent through Care Everywhere. * Tooth: Abscessed (Bolivian) documented in this encounter Medications at Time of Discharge Medication Sig Dispensed Refills Start Date End Date ibuprofen (Advil) 800 mg tablet Take 1 tablet by mouth every 8 hours as needed for Pain. 30 tablet 01/25/2023 diphenhydrAMINE-acetamin ophen (TYLENOL PM) 25-500 mg Tablet Take 1 tablet by mouth nightly. 14 each 08/13/2017 penicillin v potassium (Veetid) 500 mg tablet Take 1 tablet by mouth 4 times daily for 10 days. 40 tablet 01/25/2023 02/04/2023 documented as of this encounter ED Notes * Alok Deal MD - 01/25/2023 12:35 PM EDT ED Attending Note HPI: Agustin Green is a 42 y.o. male who presents to the Emergency Department with complaints of lower jawpain in the setting of multiple significant dental caries. Patient states that he has had many of his teeth pulled, though he still needs to get the rest of them pulled. He has significant pain throughout his lower jaw that started over the last 2 days. Is been unable to get into a dentist currently. Has had similar in the past which is responded to antibiotics with improvement, requesting the same. Denies any fevers or chills, denies any difficulty breathing, swallowing, eating or drinking. Denies any nausea vomiting or diarrhea. ROS as per HPI Vitals: ED Triage Vitals BP: 98/85 [01/25/23 1204] Heart Rate: 96 [01/25/23 1203] Resp: 16 [01/25/23 1203] Temp: 36.6 ??C (97.8 ??F) [01/25/23 1203] Temp src: Temporal [01/25/23 1203] SpO2: 96 % [01/25/23 1203] O2 Device: RA [01/25/23 120] O2 Flow Rate (L/min): n/a Physical Exam Well-nourished well-developed male no apparent distress HEENT: Patient with no significant facial swelling. Mild tenderness to palpation along the lower gumline with no evidence of significant periapical abscess. Approximately 11 teeth left in the lower jaw all with significant decay, exposed pulp. No change in facial architecture. Lungs: clear to auscultation bilaterallyungs: Heart: RRR S1-S2, no murmurs, rubs or appreciated Abdomin- soft nontender nondistendedbd: ED Course In assessment and plan Patient evaluated in the emergency department. History and physical obtained, case was discussed with patient, assessment plan was agreed upon. Patient shows evidence of dental infection with no drainable abscess. He is not systemically ill, and is tolerating p.o. Patient was given dose of antibiotics, prescription called into outpatient pharmacy, patient discharged home with instructions to follow-up with dentist, return precautions given. Patient does have a dentist, states that he has an appointment coming in the near future. The visit findings, diagnosis, and care plan were discussed with the patient. The diagnosis and care plans discussions were outlined in the discharge instructions. The patient expressed understanding of the details of the visit, the return precautions and that he should returnto the ER at any time for worsening symptoms, new symptoms, or other concerns. he agrees with the follow- up plan. Alok Deal MD 01/28/23 1612 documented in this encounter Plan of Treatment Not on file documented as of this encounter Visit Diagnoses Diagnosis Dental infection Acute apical periodontitis of pulpal origin documented in this encounter Administered Medications Inactive Administered Medications - up to 3 most recent administrations Medication Order MAR Action Action Date Dose Rate Site ibuprofen (Advil) tablet 600 mg 600 mg, Oral, ONCE, 1 dose, On Sat01/25/23 at 1242, Administer orally with milk or food to minimize GI irritation , STAT Given 01/25/2023 1:12 PM EDT 600 mg penicillin v potassium (Veetid) tablet 500 mg 500 mg, Oral, ONCE, 1 dose, On Sat01/25/23 at 1232, STAT Given 01/25/2023 1:12 PM EDT 500 mg documented in this encounter Active and Recently Administered Medications Times are shown in EDT. Scheduled Medication Order 01/23/2023 01/24/2023 01/25/2023 ibuprofen (Advil) tablet 600 mg (COMPLETED) 600 mg, Oral, ONCE, 1 dose, On Sat01/25/23 at 1242, Administer orally with milk or food to minimize GI irritation , STAT 1312 (Given - Provid er: Elmira Baptiste RN) penicillin v potassium (Veetid) tablet 500 mg (COMPLETED) 500 mg, Oral, ONCE, 1 dose, On Sat01/25/23 at 1232, STAT 1312 (Given - Provid er: Elmira Baptiste RN) documented in this encounter Care Teams Molder Floor Relationship Specialty Start Date End Date Marko Osorio MD [address] [place] [address] PCP - General 03/12/11 documented as of this encounter
--- OUTSIDE RECORDS SUMMARY | 2024-06-17 02:10 | XMS_ITS | Encounter Summary ---
Author Organization [facility] Address [facility] [place] [address] Care Team Providers Care Sustainability Director Name Role Phone Marko Osorio MD Primary Care Provider [phone] Reason for Visit * Reason Comments Dental Pain Encounter Details Date Type Department Care Team (Late st Contact Info) Description 08/13/2017 3:13 PM EDT - 08/13/2017 5:22 PM EDT [place] [address] Gildardo Goodrich MD [facility] [address] [place] [address] Atypical odontalgia; Infected dental carries Discharge Disposition: Home Social History Tobacco Use [...] Sign Reading Time Taken Comments Blood Pressure 128/81 08/13/2017 5:10 PM EDT Pulse 73 08/13/2017 5:10 PM EDT Temperature 36.8 ??C (98.2 ??F) 08/13/2017 5:10 PM ED T Respiratory Rate 16 08/13/2017 5:10 PM EDT Oxygen Saturation 96% 08/13/2017 5:10 PM EDT Inhaled Oxygen Concentration - - Weight 78.5 kg (173 lb) 08/13/2017 3:09 PM EDT Height 177.8 cm (5' 10) 08/13/2017 3:09 PM EDT Body Mass Index 24.82 08/13/2017 3:09 PM EDT documented in this encounter Discharge Instructions * Discharge Instructions* Gildardo Goodrich MD - 08/13/2017 5:20 PM EDT Images from the original note were not included. Immediate follow-up as scheduled with dentistry. [facility] Periodontal Conditions: Care Instructions Your Care Instructions Periodontal conditions affect the gums, bone, and tissue that surround and support the teeth. The most common problems are caused by plaque. Plaque is a thin film of bacteria that sticks to teeth above and below the gum line. It can build up and harden into tartar. The bacteria in plaque and tartarcan cause gum disease. Gingivitis is a disease that affects the gums (gingiva). The gums are the soft tissue that surrounds the teeth. Gingivitis causes red, swollen, tender gums that bleed easily when brushed, persistent bad breath, and sensitive teeth. Because it is not painful, many people do not get treatment when they should. Gingivitis can be reversed with good dental care. Periodontitis is a more advanced disease that affects more than the gums. The gums pull away from the teeth. This leaves deep pockets where bacteria can grow. The disease can damage the bones that support the teeth. The teeth may get loose and fall out. A periodontal condition should be treated as soon as it is found. Finding gum problems early, treating them right away, and having regular checkups bring the best results. You can treat mild periodontal conditions by brushing and flossing your teeth every day. Your dentist may prescribe a mouthwash to kill the bacteria that can damage teeth and gums. Your dentist may have you take antibiotics to treat infection from moderate periodontal disease. If your gums have pulled away from your teeth, you may need cleaning between the teeth and gums right down to the teeth roots. This is called root planing and scaling. If you have severe periodontal disease, you may need surgery to remove diseased gum tissue or repair bone damage. Follow-up care is a hooper part of your treatment and safety. Be sure to make and go to all appointments, and call your dentist if you are having problems. It's also a good idea to know your test results and keep a list of the medicines you take. How can you care for yourself at home? ?? If your dentist prescribed antibiotics, take them as directed. Do not stop taking them just because you feel better. You need to take the full course of antibiotics. ?? Prescott your teeth twice a day, in the morning and at night. ?? Use a toothbrush with soft, rounded-end bristles and a head that is small enough to reach all parts of your teeth and mouth. Replace your toothbrush every 3 to 4 months. ?? Use a fluoride toothpaste. ?? Place the brush at a 45-degree angle where the teeth meet the gums. Press firmly, and gently rock the brush back and forth using small circular movements. ?? Prescott chewing surfaces vigorously with short hrnd-msm-bmmxc strokes. ?? Prescott your tongue from back to front. ?? Floss at least once a day. Choose the type and flavor that you like best. ?? Have your teeth cleaned by a professional at least twice a year. ?? Ask your dentist about using an antibacterial mouthwash to help reduce bacteria. ?? Rinse your mouth with water or chew sugar-free gum after meals if you can't brush your teeth. ?? Do not smoke or use smokeless tobacco. Tobacco use can cause periodontal disease. When should you call for help? Call your dentist now or seek immediate medical care if: ?? You have symptoms of infection, such as: ?? Increased pain, swelling, warmth, or redness. ?? Red streaks leading from the area. ?? Pus draining from the area. ?? A fever. Watch closely for changes in your health, and be sure to contact your dentist if: ?? You have new or worse tooth pain. ?? You do not get better as expected. Where can you learn more? Visit our health information library at [email or web address]. You can also view health information on [employer], your personal patient account. Log in or sign uptoday. Enter W267 in the search box to learn more about Periodontal Conditions: Care Instructions. Current as of: November 09, 2016 Content Version: 11.3 ?? [id number] [employer]. Care instructions adapted under license by [facility]. If you have questions about a medical condition or this instruction, always ask your healthcare professional. [employer] disclaims any warranty or liability for your use of this information. documented in this encounter ED Notes * Avni Mckeon - 08/13/2017 3:45 PM EDT Images from the original note were not included. ED Resident Note Agustin Green is an 37 y.o. male who presents to the ED with: Chief Complaint Patient presents with ??? Dental Pain I saw this patient 08/13/2017 at 3:45 PM HPI Agustin Green is a 37 y.o. male with a history of dental Caries s/p complete removal of upper dentition who presents to the Emergency Department with jaw pain. He states that he has 3 week history of Llower jaw pain with purulent drainage. He states that he has punctured his gum several time over the past few days with needle and pocketknife to relieve the pain. He denies any fever, chills, nauesa, or vomiting. He has an appointment with [facility] on the of this month to have the remainder of his teeth removed. He does have headaches and shoulder pain due to recent participation in [employer] that is being evaluated by neurology and PT. Allergies Allergen Reactions ??? Hymenoptera Allergenic Extract No current facility-administered medications for this encounter. Current Outpatient Prescriptions: ??? acetaminophen (TYLENOL EXTRA STRENGTH) 500 mg tablet, Take 1,000 mg by mouth every 6 hours as needed., Disp: , Rfl: ??? ibuprofen (ADVIL;MOTRIN) 200 mg tablet, Take 600 mg by mouth every 6 hours as needed., Disp: , Rfl: No past medical history on file. Review of Systems: Review of Systems Constitutional: Negative for chills, fatigue, fever and unexpected weight change. HENT: Negative for congestion, rhinorrhea, tinnitus and trouble swallowing. Eyes: Negative for visual disturbance. Respiratory: Negative for cough and shortness of breath. Cardiovascular: Negative for chest pain and leg swelling. Gastrointestinal: Negative for abdominal pain, constipation, diarrhea, nausea and vomiting. Genitourinary: Negative for dysuria and hematuria. Musculoskeletal: Negative for arthralgias and myalgias. Skin: Negative for rash. Neurological: Negative for dizziness, weakness, light-headedness and numbness. Physical Exam: Patient Vitals for the past 24 hrs: BP Temp Temp src Pulse Resp SpO2 Height Weight 08/13/17 1509 154/85 36.8 ??C (98.2 ??F) Oral 70 18 99 % 177.8 cm (5' 10) 78.5 kg (173 lb) Physical Exam Constitutional: He is oriented to person, place, and time. He appears well- developed and well-nourished. No distress. HENT: Mouth/Throat: Oropharynx is clear and moist and mucous membranes are normal. Dental caries present.Tonsils are 2+ on the right. Tonsils are 2+ on the left. No tonsillar exudate. Eyes: EOM are normal. Neck: Normal range of motion. Cardiovascular: Normal rate, regular rhythm and normal heart sounds. Pulmonary/Chest: Effort normal and breath sounds normal. No respiratory distress. He has no wheezes. He has no rales. Abdominal: Soft. Bowel sounds are normal. He exhibits no distension and no mass. There is no tenderness. There is no rebound and no guarding. Musculoskeletal: Normal range of motion. Neurological: He is alert and oriented to person, place, and time. Skin: Skin is warm and dry. He is not diaphoretic. Psychiatric: He has a normal mood and affect. ED Course and MDM - Patient seen under the supervision of Dr. Goodrich - Medications, allergies and past medical history reviewed Assessment: 37 y.o. male with dental pain Concerns in the patient include dental abscess, caries, Tash's angina, or INDUCTION MACHINE SETTER/RPA. On exam there is no evidence of extension into the base of the mouth or posterior oropharynx. Thereare marketed dental caries noted at the base of the teeth. There is no discrete abscess, likely dueto de-meño activity by patient. Given the lack of abscess and no clinical signs of systemic infection there is no current role antibiotics. Per request patient given pain control prescriptions of ibuprofen and Tylenol PM due to financial restraints. He will follow-up with [facility] for removal of theaffected teeth. Return precautions were verbally discussed with the patient and written in discharge instructions including worsening pain, fevers, dizziness, difficulty swallowing, or other concerns. The patient expressed understanding that he could come back to the ED at any time and agreed to the follow-up plan. Plan: -Discharge home with supportive care. - Follow up with [facility] at previously scheduled appointment. - Return precautions Avni Mckeon MD Resident 08/14/17 0142 Associated attestation - Gildardo Goodrich MD - 08/21/2017 4:46 PM EDT ATTENDING PHYSICIAN I have seen the patient and reviewed the resident's documentation and I agree with the details as written. The assessment and plan were formulated in discussion with me and I agree with them as documented. I also performed my own history and physical examination. Medical decision making in this note is my own. Odontalgia without signs of significant facial infection. Dental follow-up in place. documented in this encounter Plan of Treatment Not on file documented as of this encounter Visit Diagnoses Diagnosis Atypical odontalgia Infected dental carries Other dental caries documented in this encounter Care Teams Sustainability Director Relationship Specialty Start Date End Date Marko Osorio MD [address] [place] [address] PCP - General 03/12/11 documented as of this encounter
[2024-06-17 02:17] LABS: Bacteria Negative HPF (Negative); Crystals Negative HPF (Negative); Epithelial Cells Rare HPF (Negative); Mucus Negative (Negative); RBC 20-50 HPF (0-2); WBC 0-2 HPF (0-5)
[2024-06-17 02:18] LABS: C & S Indicated? No; Casts Negative LPF (Negative)
[2024-06-17 02:19] LABS: ALT 21 U/L (16-63); AST 12 U/L (15-37); Albumin 3.7 g/dL (3.4-5.0); Alkaline Phosphatase 94 U/L (46-116); Anion Gap 10.6 mmol/L (3-11); BUN 27 mg/dL (7-18); Bilirubin, Total 0.18 mg/dL (0.2-1.0); CO2 28.4 mmol/L (21.0-32.0); CREATININE 1.3 mg/dL (0.70-1.30); Chloride 103 mmol/L (98-107); Estimated GFR 70.78 (mL/min/1.73m2); Glucose 138 mg/dL (74-106); Potassium 4.2 mmol/L (3.5-5.1); Sodium 142 mmol/L (136-145); Total Protein 7.2 g/dL (6.4-8.2)
--- NOTE | 2024-06-17 03:00 | DI.CT_ITS ---
Exam(s) CT ABDOMEN PELVIS WO EXAM: CT ABDOMEN PELVIS WO CLINICAL HISTORY: left flank/groin pain, hx kidney stone. TECHNIQUE: Imaging Protocol: Axial computed tomography images with coronal and sagittal reformatted images were created and reviewed. COMPARISON: CT CT RENAL COLIC WO from 03/09/2023 FINDINGS: ABDOMEN: Lung Bases: Normal where visualized. Liver: Normal density. No measurable mass. Gallbladder and biliary tract: No radiodense calculus or biliary ductal dilation. Pancreas: Normal density, no abnormal calcifications or inflammatory process. Spleen: Normal. Kidneys: Normal size, contour and axis.There is bilateral nephrolithiasis. There is a 5 mm stone at the right UVJ causing mild hydronephrosis. There is no evidence of left hydronephrosis. No masses s een. Adrenal glands: No mass is seen. Lymph nodes: Within normal limits. Abdominal Aorta: Abdominal portion non-dilated. Mild atherosclerosis. PELVIS: Bladder:Symmetric distention, no gross wall thickening. Bowel: No obstruction or bowel wall thickening. Appendix is unremarkable. Peritoneal cavity: No ascites, collection or mesenteric inflammatory response. No free air. Reproductive organs: Unremarkable as visualized. Bones: Within normal limits. Soft Tissues: Within normal limits. IMPRESSION: 5 mm right UVJ stone causing mild hydronephrosis. RADIATION DOSE DELIVERED: Total DLP DATA REPOSITORY: All CT scans at this facility are submitted to the National Radiology Data Registry (NRDR) Dose Index Registry (DIR) with the [employer] (ACR). RADIATION OPTIMIZATION: All CT scans at this facility use at least one of these dose optimization te chniques: automated exposure control; mA and/or kV adjustment per patient size (includes targeted exa ms where dose is matched to clinical indication); or iterative reconstruction.
[2024-06-17] MEDS: ACETAMINOPHEN 1,000 MG/100 ML BTL 400 MG IVPB (03:15)
[2024-06-17] MEDS: MORPHine 10 MG/ML VIAL 6 MG IVP (03:49)
--- NOTE | 2024-06-17 04:10 | DI.VRAD_ITS ---
PROCEDURE INFORMATION: Exam: CT Abdomen And Pelvis Without Contrast Exam date and time: 06/17/2024 3:17 AM Age: 43 years old Clinical indication: Abdominal pain; Flank; Left; Patient HX: HX of kidney stones TECHNIQUE: Imaging protocol: Computed tomography of the abdomen and pelvis without contrast. COMPARISON: CT RENAL COLIC WO 04/08/2023 21:10 FINDINGS: Liver: Normal. No mass. Gallbladder and biliary ducts: Normal. No calcified stones. No ductal dilation. Pancreas: Normal. No ductal dilation. Spleen: Normal. No splenomegaly. Adrenal glands: Normal. No mass. Kidneys and ureters: 4 mm calculus at the right ureterovesical junction. Mild right hydronephrosis and moderate perinephric stranding. Punctate nonobstructing intrarenal calculi bilaterally. Stomach and bowel: No evidence of bowel obstruction. Large amount of stool in the colon. No mucosal thickening. Appendix: Nonvisualized appendix. Intraperitoneal space: Unremarkable. No free air. No significant fluid collection. Vasculature: Unremarkable. No abdominal aortic aneurysm. Lymph nodes: Unremarkable. No enlarged lymph nodes. Urinary bladder: Unremarkable as visualized. Reproductive: Unremarkable as visualized. Bones/joints: No acute fracture. Soft tissues: Unremarkable. IMPRESSION: 1. 4 mm calculus at the right UVJ with moderate right obstructive uropathy. 2. Bilateral nephrolithiasis. Dictated and Authenticated by: Jose Moreno MD. Ordering:FABRIZIO Max MD
[2024-06-17 04:52] VITALS: BP 143/68; PULSE 53; RESP 16; TEMP 36.8; O2SAT 97
== END 2024-06-17 04:58 | disposition home or self-care (01) ==
PROVIDERS: Emergency Provider Student in an Organized Health Care Education/Training Program
DX: R10.32 Left lower quadrant pain (principal); R11.0 Nausea; N20.0 Calculus of kidney; F11.90 Opioid use, unspecified, uncomplicated; Z87.442 Personal history of urinary calculi
CPT/HCPCS: 80053; 96361; 96374; 96375; 96376; 99284; 74176; 81003; 81015; 85025; 99283; J0131; J1885; J2270; J2405

== ENCOUNTER 2024-10-12 13:01 | Emergency (ER) | payer MEDICARE, MEDICAID, SELFPAY ==
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
[2024-10-12 13:03] VITALS: BP 125/81; PULSE 67; RESP 15; TEMP 36.8; O2SAT 96
--- NOTE | 2024-10-12 13:27 | DI.RAD_ITS ---
Exam(s) XR HAND RT COMPLETE EXAM: XR HAND RT COMPLETE CLINICAL HISTORY: Fall pain base of right thumb. TECHNIQUE: 2D digital imaging was performed. COMPARISON: CR XR HAND RT COMPLETE from 03/23/2024 FINDINGS: 3 views No evidence of acute fracture nor dislocation. Subtle irregularity at the head of the proximal phala nx of the thumb is noted but this may just be projectional, as opposed to a true fracture. Remainder of the bones of the hand appear unremarkable as do the visualized wrist carpal row bones. No radiopaque foreign body. IMPRESSION: As above. If clinically indicated additional dedicated views of the thumb can be performed. DATA REPOSITORY: RADIATION DOSE DELIVERED:
--- NOTE | 2024-10-12 13:30 | DI.RAD_ITS ---
Exam(s) XR THUMB RT EXAM: XR THUMB RT CLINICAL HISTORY: Thumb pain. TECHNIQUE: 2D digital imaging was performed. Three views. COMPARISON: No exams were available for comparison FINDINGS: BONES: No acute fracture is present. No bony destructive lesion is seen. JOINTS: No dislocation present. SOFT TISSUE: Normal. IMPRESSION: No evidence of acute fracture, dislocation, or subluxation. DATA REPOSITORY: RADIATION DOSE DELIVERED:
[2024-10-12] MEDS: Ibuprofen 600 MG TAB PO (14:25)
[2024-10-12] MEDS: Acetaminophen 500 MG TAB 1000 MG PO (14:25)
== END 2024-10-12 15:26 | disposition home or self-care (01) ==
PROVIDERS: Emergency Provider Emergency Medicine
DX: M25.531 Pain in right wrist (principal); M79.641 Pain in right hand; F17.210 Nicotine dependence, cigarettes, uncomplicated
CPT/HCPCS: 99283; 73130; 73140

== ENCOUNTER 2025-02-08 12:52 | Outpatient (CLI) | payer MEDICARE, MEDICAID, SELFPAY ==
--- NOTE | 2025-02-08 12:55 | DI.RAD_ITS ---
Exam(s) XR CHEST 2V PA LATERAL EXAM: XR CHEST 2V PA LATERAL CLINICAL HISTORY: J06.9 Acute URI, unspecified TECHNIQUE: 2D digital imaging was performed. Two views. COMPARISON: No exams were available for comparison FINDINGS: HEART: Normal size. Aorta: Not dilated. PULMONARY VASCULATURE: Normal. MEDIASTINUM: Unremarkable. LUNGS: Clear. PLEURAL SPACE: No pleural effusion or pneumothorax. BONE:Unremarkable for age. SOFT TISSUES: Unremarkable. IMPRESSION: No acute abnormality. DATA REPOSITORY: RADIATION DOSE DELIVERED:
== END 2025-02-08 13:12 ==
PROVIDERS: PCP Family Medicine; Visit Provider Physician Assistant Medical
DX: J02.9 Acute pharyngitis, unspecified (principal)
CPT/HCPCS: 71046

== ENCOUNTER 2025-04-05 04:01 | Emergency (ER) | payer MEDICARE, MEDICAID, SELFPAY ==
[2025-04-05 04:03] VITALS: BP 167/100; PULSE 70; RESP 18; TEMP 36.6; O2SAT 99
[2025-04-05 04:21] LABS: Abs Immature Grans 0.02 10^3/uL (0.0-0.06); Absolute Basophil Count 0.03 10^3/uL (0.0-0.2); Absolute Eosinophil Count 0.09 10^3/uL (0.0-0.7); Absolute Monocyte Count 0.47 10^3/uL (0.1-0.8); Absolute Neutrophil Count 3.98 10^3/uL (1.2-6.7); Basophils % 0.4 %; Eosinophils % 1.3 %; HCT 44.6 % (40.0-50.0); HGB 14.6 g/dL (13.5-17.5); Immature Grans % 0.3 %; Lymphocytes % 32.4 %; MCH 29.2 pg (27.0-33.0); MCHC 32.7 % (32.0-36.0); MCV 89 fL (80-95); Monocytes % 6.9 %; Neutrophils % 58.7 %; Platelet Count 187 10^3/uL (130-400); RDW 11.9 % (11.8-14.1); RDW-SD 38.5 fL; WBC 6.79 10^3/uL (4.4-10.8)
[2025-04-05] MEDS: Lactated Ringers 1,000 ML 1000 ML IV (04:21)
[2025-04-05] MEDS: Ketorolac 30 MG/ML VIAL IVP (04:23)
[2025-04-05] MEDS: Ondansetron 4 MG/2 ML VIAL IVP (04:26)
[2025-04-05] MEDS: ACETAMINOPHEN 1,000 MG/100 ML BAG 400 MG (04:27)
[2025-04-05] MEDS: Tamsulosin 0.4 MG CAPCR PO (04:28)
[2025-04-05 04:51] LABS: ALT 26 U/L (16-63); AST 16 U/L (15-37); Albumin 3.8 g/dL (3.4-5.0); Alkaline Phosphatase 110 U/L (46-116); Anion Gap 8.1 mmol/L (3-11); BUN 17 mg/dL (7-18); Bilirubin, Total 0.2 mg/dL (0.2-1.0); CO2 30.9 mmol/L (21.0-32.0); CREATININE 0.9 mg/dL (0.70-1.30); Calcium 9.1 mg/dL (8.5-10.1); Chloride 102 mmol/L (98-107); Estimated GFR 109.36 (mL/min/1.73m2); Glucose 106 mg/dL (74-106); Potassium 4.3 mmol/L (3.5-5.1); Sodium 141 mmol/L (136-145); Total Protein 7.5 g/dL (6.4-8.2)
[2025-04-05 05:02] LABS: Bilirubin Negative (Negative); Blood Large (Negative); Clarity Turbid (Clear); Glucose Negative (Negative); Ketones Negative (Negative); Leukocyte Esterase Negative (Negative); Nitrite Negative (Negative); Specific Gravity 1.015 (1.005-1.025); Urobilinogen 0.2 mg/dL (Up to 0.2)
--- NOTE | 2025-04-05 05:12 | W.ED.GENAD ---
Discharge Plan Disposition Patient Disposition: Home Condition: Good Discharge Details Clinical Impression: Kidney stone Primary Care Provider: Grzegorz Goddard ED Provider: Hermes Johnson Home Meds and New Rx's Prescriptions: New ketorolac 10 mg tablet 10 mg PO TID 5 Days Qty: 15 0RF tamsulosin [Flomax] 0.4 mg capsule 0.4 mg PO DAILY Qty: 10 0RF No Action methadone 10 mg/5 mL Solution 115 mg PO DAILY Rx Instructions: thru [facility] acetaminophen [Tylenol Extra Strength] 500 mg Tablet 1,000 mg PO QID PRNQty: 0 0RF ibuprofen 600 MG tablet 600 mg PO QID PRN PRNQty: 0 0RF Discharge Instructions Instructions: Kidney Stone, Adult ED Additional Instructions: At this time it is likely that you passed all of your kidney stone. However there is a concern that there still may be a small component left. Please drink plenty of fluids, 10 to 12 cups/day at least. Please add a small amount of lemon juice to every cup of water. Please take 10mg of Ketorolac every 8 hours and 1000 mg of Tylenol every 6 hours as needed for pain. These are the maximum doses of these medicines. Please take the Flomax as directed. This will help in expediting the passage of your kidney stone. If your pain stops, you can stop taking the Flomax. Please strain your urine to collect the stone. This can then be analyzed by your family doctor. If you do not have resolution of your symptoms after 48 to 72 hours please follow-up closely with your family doctor or return here for reassessment. If you notice any worsening of your symptoms, or any new symptoms such as inability to urinate, vomiting, diarrhea, fever, chills, shortness of breath, chest pain, numbness, weakness, or fainting , please return immediately to the emergency department for reevaluation. Please follow up with your primary care provider as soon as possible for reassessment and reevaluation. As always, it was a pleasure participating in your medical care today. Referrals: Grzegorz Goddard MD [Primary Care Provider] - Matt Díaz MD [ [facility] STAFF PHYSICIAN] - [facility] General Date/Time Provider Initiated Documentation: 04/05/25 04:02. HPI Narrative: This is a 44-year-old male with a past medical history of kidney stones in the past, previous dental infections, regular methadone use, ADD, who presents today for evaluation of left flank pain. Patient states symptoms began today, started in his left flank, radiates towards his groin. He noticed some blood in his urine, which he states is usually a sign for a kidney stone. He took some NSAIDs without significant improvement. He denies any fever chills vomiting or diarrhea. No other complaints at this time. Related Data Home Medications ?Medication ?Instructions ?Recorded ?Confirmed methadone 10 mg/5 mL oral solution 115 mg PO DAILY 09/23/20 04/05/25 acetaminophen 500 mg tablet 1,000 mg (2 x 500 mg) PO QID PRN 03/09/23 04/05/25 (Tylenol Extra Strength) #0 tabs ibuprofen 600 mg tablet 600 mg PO QID PRN PRN #0 tabs 03/09/23 04/05/25 ketorolac 10 mg tablet 10 mg PO TID 5 days #15 tabs 04/05/25 tamsulosin 0.4 mg capsule (Flomax) 0.4 mg PO DAILY #10 caps 04/05/25 Previous Rx's ?Medication ?Instructions ?Recorded acetaminophen 500 mg tablet 1,000 mg (2 x 500 mg) PO QID PRN 03/09/23 (Tylenol Extra Strength) #0 tabs ibuprofen 600 mg tablet 600 mg PO QID PRN PRN #0 tabs 03/09/23 ketorolac 10 mg tablet 10 mg PO TID 5 days #15 tabs 04/05/25 tamsulosin 0.4 mg capsule (Flomax) 0.4 mg PO DAILY #10 caps 04/05/25 Allergies Allergy/AdvReac Type Severity Reaction Status Date / Time venom-honey bee (bee venom Allergy Anaphylaxsi Unverified 04/05/25 04:09 (honey bee)) s clindamycin AdvReac GI UPSET Unverified 04/05/25 04:09 codeine AdvReac Skin Rash Unverified 04/05/25 04:09 General Stated Complaint: FlankPain MIRANDA: 3 Exam Narrative Exam Narrative: 1.Const: Well-nourished, Well-developed, appearing stated age 2.Eyes: PERRL, no conjunctival injection, and symmetrical lids. 3.ENT: Atraumatic external nose and ears. Moist MM. Neck: Symmetric, trachea midline, No thyromegaly. 4.CVS: +S1/S2, Peripheral pulses 2+ and equal in all extremities. Brisk capillary refill in all extremities. 5.RESP: Unlabored respiratory effort. Clear to auscultation bilaterally. No wheezes rales or rhonchi 6.GI: Soft, nondistended, no guarding or rebound. Mild left CVA tenderness. 7.MSK: Normocephalic/Atraumatic, Extremities w/o deformity or ttp No cyanosis or clubbing, Normal movement of all extremities 8.Skin: Warm, Dry. No rashes or lesions. 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 Sensation grossly intact, no focal neurologic deficits. 10.Psych: (AAO) x3. Appropriate mood and affect Course Vital Signs Vital signs: Vital Signs Temperature 36.6 C 04/05/25 04:03 Pulse 70 04/05/25 04:03 Respiratory Rate 18 04/05/25 04:03 Blood Pressure 167/100 H 04/05/25 04:03 Pulse Oximetry 99 04/05/25 04:03 Temperature 36.6 C 04/05/25 04:03 Temperature Source Oral 04/05/25 04:03 Pulse 70 04/05/25 04:03 Respiratory Rate 18 04/05/25 04:03 Blood Pressure 167/100 H 04/05/25 04:03 Pulse Oximetry 99 04/05/25 04:03 Pain Level 6 04/05/25 04:06 Lab/Test Results Lab/Test Results: Laboratory Tests Range/Units 04/05/25 04:15 WBC (4.4-10.8) 10^3/uL 6.79 RBC (4.36-5.78) 10^6/uL 5.00 Hgb (13.5-17.5) g/dL 14.6 Hct (40.0-50.0) % 44.6 MCV (80-95) fL 89 MCH (27.0-33.0) pg 29.2 MCHC (32.0-36.0) % 32.7 RDW (11.8-14.1) % 11.9 Plt Count (130-400) 10^3/uL 187 MPV (8.0-11.0) fL 10.0 Immature Gran % % 0.3 Neutrophils % % 58.7 Lymphocytes % % 32.4 Monocytes % % 6.9 Eosinophils % % 1.3 Basophils % % 0.4 Nucleated RBC % (0.0-0.3) % 0.0 Absolute Neutrophils (1.2-6.7) 10^3/uL 3.98 Absolute Lymphocytes (1.2-3.4) 10^3/uL 2.20 Absolute Monocytes (0.1-0.8) 10^3/uL 0.47 Absolute Eosinophils (0.0-0.7) 10^3/uL 0.09 Absolute Basophils (0.0-0.2) 10^3/uL 0.03 Sodium (136-145) mmol/L 141 Potassium (3.5-5.1) mmol/L 4.3 Chloride (98-107) mmol/L 102 Carbon Dioxide (21.0-32.0) mmol/L 30.9 Anion Gap (3-11) mmol/L 8.1 BUN (7-18) mg/dL 17 Creatinine (0.70-1.30) mg/dL 0.9 Est GFR (CKD-EPI 2020) (mL/min/1.73m2) 109.36 Glucose (74-106) mg/dL 106 Calcium (8.5-10.1) mg/dL 9.1 Total Bilirubin (0.2-1.0) mg/dL 0.2 AST (15-37) U/L 16 ALT (16-63) U/L 26 Alkaline Phosphatase (46-116) U/L 110 Total Protein (6.4-8.2) g/dL 7.5 Albumin (3.4-5.0) g/dL 3.8 Urine Color (Yellow) Brown Urine Clarity (Clear) Turbid Urine pH (5-8) 6.0 Ur Specific [place] (1.005-1.025) 1.015 Urine Protein (Neg-Trace) mg/dL Negative Urine Ketones (Negative) mg/dL Negative Urine Blood (Negative) Large H Urine Nitrite (Negative) Negative Urine Bilirubin (Negative) Negative Urine Urobilinogen (Up to 0.2) mg/dL 0.2 Ur Leukocyte Esterase (Negative) Negative Urine Glucose (Negative) mg/dL Negative Medical Decision Making This is a 44-year-old male with a past medical history of kidney stones in the past, previous dental infections, regular methadone use, ADD, who presents today for evaluation of left flank pain. Patient states symptoms began today, started in his left flank, radiates towards his groin. He noticed some blood in his urine, which he states is usually a sign for a kidney stone. He took some NSAIDs without significant improvement. He denies any fever chills vomiting or diarrhea. No other complaints at this time. Exam demonstrates well-appearing male, mild left CVA tenderness, stable vital signs aside from mild hypertension. Differential is highest for kidney stone, urinary tract infection is also of concern. No fever or chills or diarrhea or significant reproducible left abdominal pain to suggest diverticulitis. No guarding or rebound. Will give Toradol, Flomax, Ofirmev, rehydrate with a liter of fluids, get CT imaging, monitor closely and reassess. 4:30 AM Immediately when the patient provided a urine sample he had a notable stone that he was able to urinate out and is present in the urine. Will hold off on CT imaging to evaluate for improvement of pain after NSAIDs. 5:30 AM Laboratory workup shows no white count bandemia or left shift. Renal function stable, urinalysis shows blood but no nitrites or leuk esterase to suggest infection. On reassessment patient was sleeping comfortably, he was awoken and he states that his pain has resolved. Patient likely has passage of stone kidney stone. Will give Toradol and Flomax for home out of an abundance of caution. Discussed red flags for which to return. Reassessment shows no clinical evidence to suggest diverticulitis, pyelonephritis, or other acute intra-abdominal pathology. I have extensively reviewed the treatment plan and discharge instructions with the patient. I have addressed all patient concerns at this time. The patient was made aware of what symptoms to monitor for that would warrant a return to the emergency department. Discussed the plan with the patient, they demonstrate verbal understanding and agreement with our assessment and plan at this time. The documentation in this chart was dictated using [employer] dictation software. Please excuse any dictation errors. Quality:SDOH Health Related Social Needs: No Data to Display PFSH All Active Problems (Updated 04/05/25 @ 05:29 by Hermes Johnson DO) Kidney stone (Chronic) Kidney stone on left side (Acute) Pneumonia (Acute) Ureterolithiasis (Acute) Dental infection (Acute) Medical History (Updated 04/05/25 @ 05:29 by Hermes Johnson DO) ADD (attention deficit disorder) Opiate addiction Surgical History No significant past surgical history Social History Smoking/Tobacco Use Status: Current every day Tobacco Type: cigarettes Smoking risk assessment performed?: Yes Alcohol Intake: never Drug use: Never Substance use type: former substance user Do you feel safe at home: Yes Do you feel safe in your relationship?: Yes
[2025-04-05 05:20] LABS: C & S Indicated? No; RBC >50 HPF (0-2)
[2025-04-05 05:38] VITALS: BP 142/106; PULSE 60; RESP 18; O2SAT 98
--- NOTE | 2025-04-05 08:59 | NUR.NOTE ---
Access chart to get the PCP in order to fax prior authorization for ketorolac tromethamine 10mg tab to them to address. Nursing Note:
--- NOTE | 2025-04-07 08:52 | NUR.NOTE ---
Accessed Pt chart to obtain the Pts Primary Care Provider for an Authorization. Faxed form to [facility]
== END 2025-04-05 05:39 | disposition home or self-care (01) ==
PROVIDERS: Emergency Provider Student in an Organized Health Care Education/Training Program; PCP Family Medicine
DX: N20.0 Calculus of kidney (principal); R31.9 Hematuria, unspecified; F17.210 Nicotine dependence, cigarettes, uncomplicated
CPT/HCPCS: 80053; 96374; 96375; 99283; 99284; 81003; 81015; 82365; 85025; J0131; J1885; J2405

== ENCOUNTER 2025-06-09 14:12 | Emergency (ER) | payer MEDICARE, MEDICAID, SELFPAY ==
[2025-06-09 14:13] VITALS: BP 134/92; PULSE 73; RESP 15; TEMP 36.3; O2SAT 96
--- NOTE | 2025-06-09 14:33 | W.ED.GENAD ---
Discharge Plan Disposition Patient Disposition: Home Condition: Improving Discharge Details Clinical Impression: Allergy to insect stings Primary Care Provider: Grzegorz Goddard ED Provider: Kp Franco Home Meds and New Rx's Prescriptions: New epinephrine [EpiPen 2-Arthur] 0.3 mg/0.3 mL auto-injector 0.3 mg IM ONCE Qty: 2 0RF Rx Instructions: as a single dose; may repeat once amoxicillin-pot clavulanate 875-125 mg tablet 1 tab PO BID 5 Days Qty: 10 0RF No Action methadone 10 mg/5 mL Solution 125 mg PO DAILY Rx Instructions: thru [facility] acetaminophen [Tylenol Extra Strength] 500 mg Tablet 1,000 mg PO QID PRNQty: 0 0RF ibuprofen 600 MG tablet 600 mg PO QID PRN PRNQty: 0 0RF Discharge Instructions Instructions: Insect allergy Additional Instructions: Please follow-up with primary care physician as well as dental specialist. Please return to the emergency department for any worsening symptoms HPI General Date/Time Provider Initiated Documentation: 06/09/25 14:13. HPI Narrative: 44-year-old male presents after being stung by an insect on the face, swelling below right eye, patient has historically had reactions to bee stings with airway involvement however patient denies any trouble breathing trouble swallowing or change in voice, denies nausea or lightheadedness. Patient took Benadryl before arrival Related Data Home Medications ?Medication ?Instructions ?Recorded ?Confirmed methadone 10 mg/5 mL oral solution 125 mg PO DAILY 09/23/20 06/09/25 acetaminophen 500 mg tablet 1,000 mg (2 x 500 mg) PO QID PRN 03/09/23 06/09/25 (Tylenol Extra Strength) #0 tabs ibuprofen 600 mg tablet 600 mg PO QID PRN PRN #0 tabs 03/09/23 06/09/25 amoxicillin 875 mg-potassium 1 tab PO BID 5 days #10 tabs 06/09/25 clavulanate 125 mg tablet epinephrine 0.3 mg/0.3 mL 0.3 mg (0.3 mL) IM ONCE #2 ea 06/09/25 injection, auto-injector (EpiPen 2-Arthur) Previous Rx's ?Medication ?Instructions ?Recorded acetaminophen 500 mg tablet 1,000 mg (2 x 500 mg) PO QID PRN 03/09/23 (Tylenol Extra Strength) #0 tabs ibuprofen 600 mg tablet 600 mg PO QID PRN PRN #0 tabs 03/09/23 amoxicillin 875 mg-potassium 1 tab PO BID 5 days #10 tabs 06/09/25 clavulanate 125 mg tablet epinephrine 0.3 mg/0.3 mL 0.3 mg (0.3 mL) IM ONCE #2 ea 06/09/25 injection, auto-injector (EpiPen 2-Arthur) Allergies Allergy/AdvReac Type Severity Reaction Status Date / Time venom-honey bee (bee venom Allergy Anaphylaxsi Unverified 06/09/25 14:17 (honey bee)) s clindamycin AdvReac GI UPSET Unverified 06/09/25 14:17 codeine AdvReac Skin Rash Unverified 06/09/25 14:17 General Stated Complaint: Allergic MIRANDA: 3 Exam Narrative Exam Narrative: General: alert, no acute distress HEENT: normocephalic, atraumatic, neck supple, pupils equal round reactive to light, moist mucous membranes, tolerating secretions, normal voice, no rhinorrhea or otorrhea; tolerates secretions normal voice no stridor Moderate edema to zygoma and below right eye Respiratory: normal respiratory effort, lungs clear bilaterally, no wheezes rales or rhonchi Cardiac: regular rate and rhythm, no murmurs rubs or gallops; equal pulses bilaterally, warm well perfused Abdominal: soft, nontender, nondistended; no organomegaly or palpable masses MSK: normal range of motion of extremities, warm, well perfused Skin: warm, dry, no rashes or lesions Neuro: AAOx3, CN II-XII intact, 5/5 strength bilateral upper and lower extremities, normal speech, no ataxia Psych: normal mood, normal affect, calm, cooperative Course Vital Signs Vital signs: Vital Signs Temperature 36.3 C L 06/09/25 14:13 Pulse 73 06/09/25 14:13 Respiratory Rate 15 06/09/25 14:13 Blood Pressure 134/92 H 06/09/25 14:13 Pulse Oximetry 96 06/09/25 14:13 Temperature 36.3 C L 06/09/25 14:13 Temperature Source Oral 06/09/25 14:13 Pulse 73 06/09/25 14:13 Respiratory Rate 15 06/09/25 14:13 Blood Pressure 134/92 H 06/09/25 14:13 Blood Pressure Position Sitting 06/09/25 14:13 Pulse Oximetry 96 06/09/25 14:13 Oxygen Delivery Method Room Air 06/09/25 14:13 Oxygen Flow Rate 0 06/09/25 14:13 Pain Level 10 06/09/25 14:13 Medical Decision Making 44-year-old male history of allergy to bee stings presents after being stung in the face by an insect, edema to right zygoma and below right eye, no airway involvement, tolerating secretions normal voice no stridor no wheezing, hemodynamically stable no nausea no vomiting no rash no itching no presyncope, likely localized allergic reaction no evidence of anaphylaxis at this time. Patient took Benadryl before arrival. Will load with dexamethasone. Will observe here in department, if patient displays any airway involvement or other body system involvement will administer epinephrine otherwise will observe to improvement of symptomatology. 15: 20 patient feeling much better. Patient requesting to leave. Also asking for prescription for antibiotics to cover possible dental infection, patient has multiple carious fractured teeth chronic in nature no signs of deep space infection. No airway compromise, patient has no signs of anaphylaxis. Home care instructions and return precautions given PFS All Active Problems (Updated 06/09/25 @ 15:20 by Kp Franco MD) Allergy to insect stings (Acute) Kidney stone on left side (Acute) Pneumonia (Acute) Ureterolithiasis (Acute) Dental infection (Acute) Medical History (Updated 06/09/25 @ 15:20 by Kp Franco MD) ADD (attention deficit disorder) Opiate addiction Surgical History No significant past surgical history Social History Smoking/Tobacco Use Status: Current every day Tobacco Type: cigarettes Smoking risk assessment performed?: Yes Alcohol Intake: never Drug use: Never Substance use type: former substance user Do you feel safe at home: Yes Do you feel safe in your relationship?: Yes
[2025-06-09] MEDS: Dexamethasone 10 MG/ML VIAL PO (14:38)
== END 2025-06-09 15:25 | disposition home or self-care (01) ==
PROVIDERS: Emergency Provider Emergency Medicine; PCP Family Medicine
DX: T63.441A Toxic effect of venom of bees, accidental (unintentional), initial encounter (principal); R22.0 Localized swelling, mass and lump, head; R68.84 Jaw pain; K04.7 Periapical abscess without sinus
CPT/HCPCS: 99283 ×2; J1100